=== PATIENT | female | born 1955 | race African-American/Black ===

== ENCOUNTER 2019-04-14 22:20 | Inpatient (IN) ==
[2019-04-14] MEDS ORDERED: FUROSEMIDE 40 MG/4 ML VIAL IV STA (22:32)
[2019-04-14] MEDS ORDERED: ONDANSETRON 4 MG/2 ML VIAL IV STA (22:32)
[2019-04-14] MEDS ORDERED: methylPREDNISolone SOD SUC 125 MG/2 ML VIAL IV STA (22:32)
[2019-04-14] MEDS ORDERED: AZITHROMYCIN INJ 500 MG in SODIUM CHLORIDE 0.9% 250 ML IV STA (22:38)
[2019-04-14] MEDS ORDERED: cefTRIAXone 1,000 MG in SODIUM CHLORIDE 0.9% 100 ML IV STA (22:38)
[2019-04-14 22:45] LABS: Basophils # 0.1 10*3/uL (0.0-0.2); Basophils % 0.5 % (0.0-0.8); Eosinophils # 0.3 10*3/uL (0.0-0.87); Eosinophils % 2.1 % (0.00-10.9); Hematocrit 49.3 VOL% (35.7-47.0); Hemoglobin 14.9 GM/DL (12.0-16.0); Immature Granulocytes % 0.2 %; Immature Granulocytes Absolute 0.03 #; Lymphocytes % 68.3 % (21.3-54.2); Mean Corpuscular HGB Conc 30.2 GM/DL (32-36); Mean Corpuscular Volume 97.4 FL (87-102); Mean Platelet Volume 11.6 FL (9.6-12.0); Neutrophils % 22.9 % (38.7-73.9); Platelet Count 281 T/CUMM (130-400); Red Blood Count 5.06 MC/CUMM (3.8-5.5); Red Cell Distribution Width 13.7 % (9.3-17.3); White Blood Count 14.6 T/CUMM (4-12)
[2019-04-14 22:56] LABS: INR 0.9; Partial Thromboplastin Time 25.2 SECS (20.8-36.0)
[2019-04-14] MEDS ORDERED: ALBUTEROL NEB SOLN 5 MG/ML 20 ML/BOTTLE RESP TX SCH (23:00)
[2019-04-14 23:05] LABS: Alanine Aminotransferase 33 U/L (13-56); Albumin 3.3 G/DL (3.4-5.0); Alkaline Phosphatase 105 U/L (45-117); Aspartate Amino Transferase 29 U/L (0-37); Bilirubin,Total < 0.39 MG/DL (0.2-1.0); Blood Urea Nitrogen 15 MG/DL (7-18); Calcium 9.8 MG/DL (8.5-10.1); Estimated Glom Filtration Rate 70 ML/MIN; Glucose 300 MG/DL (74-106); Osmolality,Calculated 299.7 MOS/KG (273-304); Total Protein 8.6 G/DL (6.4-8.3)
[2019-04-14] MEDS: NOREPINEPHRINE 8 MG in SODIUM CHLORIDE 0.9% 242 ML IV PRN (23:05)
[2019-04-14 23:14] LABS: Allen Test Positive; Pt O2 Delivery Device Ventilator
[2019-04-14 23:16] LABS: ABG HCO3 11.8 MMOL/L (20-26); ABG Oxygen Saturation 52.9 % (95-100); ABG PO2 41.4 MM HG (80-95); ABG TCO2 17.1 MMOL/L (23-27)
[2019-04-14 23:18] LABS: ABG PH 6.975 (7.35-7.45)
[2019-04-14] MEDS ORDERED: ACETAMINOPHEN 325 MG TABLET PO PRN (23:33)
[2019-04-14] MEDS ORDERED: ONDANSETRON 4 MG/2 ML VIAL IV PRN (23:33)
[2019-04-14 23:54] LABS: Allen Test Positive; Pt O2 Delivery Device Ventilator
[2019-04-14 23:55] LABS: ABG Base Excess -13.5 MMOL/L (-2.5-2.5); ABG HCO3 19.7 MMOL/L (20-26); ABG TCO2 22.3 MMOL/L (23-27)
[2019-04-14 23:56] LABS: ABG Oxygen Saturation 20.3 % (95-100)
[2019-04-15] LABS: ABG PH 6.989 (7.35-7.45)
[2019-04-15] MEDS ORDERED: ETOMIDATE 20 MG/10 ML VIAL IV ONE (00:20)
[2019-04-15] MEDS ORDERED: ATROPINE 1 MG/10 ML SYRINGE IV ONE ×2 (00:21→00:26)
[2019-04-15] MEDS ORDERED: SODIUM CHLORIDE 0.9% 1,000 ML IV STA ×3 (00:22→00:24)
[2019-04-15] MEDS ORDERED: ADENOSINE 6 MG/2 ML VIAL IV STA (00:24)
[2019-04-15] MEDS ORDERED: ADENOSINE 6 MG/2 ML VIAL IV ONE ×2 (00:24)
[2019-04-15] MEDS ORDERED: ROCURONIUM 100 MG/10 ML VIAL IV ONE (00:24)
[2019-04-15] MEDS ORDERED: METOPROLOL TARTRATE 5 MG/5 ML VIAL IV ONE (00:25)
[2019-04-15] MEDS ORDERED: SODIUM BICARBONATE 50 MEQ/50 ML VIAL IV STA ×2 (00:26→00:38)
[2019-04-15] MEDS ORDERED: SODIUM BICARBONATE 50 MEQ/50 ML VIAL IV ONE ×2 (00:26→00:38)
[2019-04-15] MEDS ORDERED: CALCIUM CHLORIDE 1,000 MG/10 ML SYRINGE IV ONE (00:40)
[2019-04-15] MEDS ORDERED: LIDOCAINE 1% 20 ML VIAL ONE (00:41)
[2019-04-15] MEDS ORDERED: HEPARIN/NACL 0.9% 2 UNITS/ML 1,000 ML IV ONE (00:41)
[2019-04-15 00:48] LABS: Atypical Lymphocytes Few; Band Neutrophils 1 % (0-10); Eosinophils 4 % (0-10); Lymphocytes 65 % (20-55); Platelet Estimate Normal; Reactive Lymphocytes Few; Segmented Neutrophils 21 % (50-85); Total Cells Counted 100
[2019-04-15] MEDS ORDERED: BIVALIRUDIN 250 MG VIAL IV ONE ×2 (01:02→01:58)
[2019-04-15] MEDS ORDERED: TIROFIBAN 5,000 MCG/100 ML PREMIX IV SCH (01:11)
[2019-04-15 01:18] LABS: ABG Base Excess -5.5 MMOL/L (-2.5-2.5); ABG HCO3 19.5 MMOL/L (20-26); ABG Oxygen Saturation 77.2 % (95-100); ABG PCO2 61.8 MM HG (35-48); ABG PO2 52.6 MM HG (80-95); ABG TCO2 22.1 MMOL/L (23-27)
[2019-04-15 01:20] LABS: ABG PH 7.193 (7.35-7.45)
[2019-04-15] MEDS ORDERED: TIROFIBAN 5,000 MCG/100 ML PREMIX IV ONE (01:34)
[2019-04-15] MEDS ORDERED: NITROPRUSSIDE 50 MG/2 ML VIAL ONE (01:49)
[2019-04-15] MEDS ORDERED: propofoL 200 MG/20 ML VIAL IV ONE (02:03)
[2019-04-15] MEDS ORDERED: HEPARIN/NACL 0.9% 2 UNITS/ML 500 ML IV ONE (02:10)
[2019-04-15] MEDS ORDERED: AMIODARONE INJ 450 MG in DEXTROSE 5% 241 ML IV SCH (03:00)
[2019-04-15] MEDS ORDERED: SODIUM CHLORIDE 0.9% 1,000 ML IV SCH (03:00)
[2019-04-15 03:02] LABS: ABG Base Excess -9.2 MMOL/L (-2.5-2.5); ABG HCO3 19.3 MMOL/L (20-26); ABG Oxygen Saturation 76.8 % (95-100); ABG PCO2 53.9 MM HG (35-48); ABG PO2 52.6 MM HG (80-95); ABG TCO2 20.9 MMOL/L (23-27)
[2019-04-15 03:04] LABS: ABG PH 7.171 (7.35-7.45)
[2019-04-15] MEDS: MEROPENEM 500 MG in SODIUM CHLORIDE 0.9% 100 ML IV SCH ×4 (04:18→23:41)
[2019-04-15 04:26] LABS: Basophils % 0.5 % (0.0-0.8); Eosinophils # 0.1 10*3/uL (0.0-0.87); Eosinophils % 0.7 % (0.00-10.9); Hematocrit 35.1 VOL% (35.7-47.0); Immature Granulocytes % 0.7 %; Immature Granulocytes Absolute 0.06 #; Lymphocytes # 1.7 10*3/uL (1.4-4.0); Lymphocytes % 20.5 % (21.3-54.2); Mean Corpuscular HGB Conc 31.3 GM/DL (32-36); Mean Corpuscular Volume 93.6 FL (87-102); Mean Platelet Volume 10.9 FL (9.6-12.0); Monocytes % 4.2 % (1.7-12.7); Neutrophils % 73.4 % (38.7-73.9); Red Blood Count 3.75 MC/CUMM (3.8-5.5); Red Cell Distribution Width 13.5 % (9.3-17.3); White Blood Count 8.1 T/CUMM (4-12)
[2019-04-15 04:29] LABS: Apearance,Urine CLEAR (Clear); Bilirubin,Urine Negative (Negative); Blood, Urine Large mg/dL (Negative); Glucose,Urine (UA) >=500 mg/dL (Negative); Ketones,Urine Negative (Negative); Nitrite,Urine Negative (Negative); Protein,Urine 100 MG/DL; RBC,Urine 173 /HPF (0-4); Squamous Epithelial Cell,Urine Occasional /HPF (0-10); Urine Color Yellow (Yellow); Urine Specific Gravity 1.031 (1.001-1.035); Urine Urobilinogen < 2.0 EU/DL (0.2-1.0); WBC,Urine 4 /HPF (0-6)
[2019-04-15 04:31] LABS: Platelet Count 178 T/CUMM (130-400)
[2019-04-15 04:41] LABS: Barbiturates Screen,Urine Negative (Negative); Benzodiazepines Screen,Urine Negative (Negative); Cannabinoid Screen,Urine Negative (Negative); Opiate Screen,Urine Negative (Negative); Phencyclidine Screen,Urine Negative (Negative)
[2019-04-15] MEDS ORDERED: MIDAZOLAM 2 MG/2 ML VIAL ONE (04:44)
[2019-04-15] MEDS ORDERED: MIDAZOLAM 2 MG/2 ML VIAL IV ONE (04:44)
[2019-04-15] MEDS: MIDAZOLAM 100 MG in SODIUM CHLORIDE 0.9% 80 ML IV PRN (04:49)
[2019-04-15 04:50] LABS: Bilirubin,Total 0.8 MG/DL (0.2-1.0); Calcium 7.6 MG/DL (8.5-10.1); Osmolality,Calculated 310.6 MOS/KG (273-304); Total Protein 5.3 G/DL (6.4-8.3)
[2019-04-15 05:09] LABS: CKMB % 9.3 %
[2019-04-15 05:12] LABS: Troponin I 33.3 NG/ML (0.00-0.045)
[2019-04-15] MEDS ORDERED: INSULIN REGULAR 100 UNIT/ML SUBCUT SCH (06:00)
[2019-04-15] MEDS ORDERED: FUROSEMIDE 40 MG/4 ML VIAL IV ONE (07:39)
[2019-04-15] MEDS ORDERED: FUROSEMIDE 20 MG/2 ML VIAL ONE (08:32)
[2019-04-15] MEDS: methylPREDNISolone SOD SUC 40 MG/1 ML VIAL IV SCH ×2 (08:46→15:11)
[2019-04-15] MEDS: NOREPINEPHRINE 8 MG in SODIUM CHLORIDE 0.9% 242 ML IV PRN (08:52)
[2019-04-15] MEDS: AZITHROMYCIN INJ 500 MG in SODIUM CHLORIDE 0.9% 250 ML IV SCH (08:53)
[2019-04-15] MEDS: PANTOPRAZOLE 40 MG VIAL IV SCH (08:55)
[2019-04-15] MEDS: TICAGRELOR 90 MG TABLET PO SCH ×2 (08:56→20:19)
[2019-04-15] MEDS: ASPIRIN EC 81 MG TABLET PO SCH (08:56)
[2019-04-15] MEDS: VANCOMYCIN INJ 1,250 MG in SODIUM CHLORIDE 0.9% 250 ML IV SCH (09:20)
[2019-04-15] MEDS: INSULIN GLARGINE 100 UNIT/ML SUBCUT SCH (09:22)
[2019-04-15] MEDS: SODIUM BICARB INJ 50 MEQ in SODIUM CHLORIDE 0.45% 1,000 ML IV SCH ×3 (09:24→22:19)
[2019-04-15] MEDS: INSULIN REGULAR 100 UNIT/ML SUBCUT SCH ×4 (09:25→20:19)
[2019-04-15] MEDS: AMIODARONE INJ 450 MG in DEXTROSE 5% 241 ML IV SCH (10:30)
[2019-04-15 11:25] LABS: CKMB % 9.7 %
[2019-04-15 19:17] LABS: Troponin I 92.5 NG/ML (0.00-0.045)
[2019-04-15] MEDS: ROSUVASTATIN 20 MG TABLET PO SCH (20:19)
[2019-04-16] MEDS: INSULIN REGULAR 100 UNIT/ML SUBCUT SCH ×7 (00:33→23:53)
[2019-04-16] MEDS: methylPREDNISolone SOD SUC 40 MG/1 ML VIAL IV SCH ×4 (00:33→23:53)
[2019-04-16] MEDS: AMIODARONE INJ 450 MG in DEXTROSE 5% 241 ML IV SCH ×2 (03:39→20:38)
[2019-04-16 04:33] LABS: Basophils % 0.1 % (0.0-0.8); Hematocrit 26.3 VOL% (35.7-47.0); Hemoglobin 8.7 GM/DL (12.0-16.0); Immature Granulocytes % 0.4 %; Immature Granulocytes Absolute 0.05 #; Lymphocytes # 1.5 10*3/uL (1.4-4.0); Lymphocytes % 12.8 % (21.3-54.2); Mean Corpuscular HGB Conc 33.1 GM/DL (32-36); Mean Corpuscular Volume 87.7 FL (87-102); Mean Platelet Volume 11.9 FL (9.6-12.0); Monocytes % 4.1 % (1.7-12.7); Neutrophils % 82.6 % (38.7-73.9); Platelet Count 165 T/CUMM (130-400); Red Cell Distribution Width 13.5 % (9.3-17.3); White Blood Count 11.3 T/CUMM (4-12)
[2019-04-16] MEDS: MEROPENEM 500 MG in SODIUM CHLORIDE 0.9% 100 ML IV SCH ×4 (04:39→21:01)
[2019-04-16 04:58] LABS: Calcium 7.6 MG/DL (8.5-10.1)
[2019-04-16 06:46] LABS: ABG Base Excess 5.6 MMOL/L (-2.5-2.5); ABG HCO3 29.5 MMOL/L (20-26); ABG Oxygen Saturation 99.5 % (95-100); ABG PCO2 30.2 MM HG (35-48); ABG PH 7.568 (7.35-7.45); ABG TCO2 25.1 MMOL/L (23-27)
[2019-04-16] MEDS ORDERED: FUROSEMIDE 40 MG/4 ML VIAL IV ONE (07:53)
[2019-04-16] MEDS: ASPIRIN EC 81 MG TABLET PO SCH (08:46)
[2019-04-16] MEDS: TICAGRELOR 90 MG TABLET PO SCH ×2 (08:46→21:00)
[2019-04-16] MEDS: INSULIN GLARGINE 100 UNIT/ML SUBCUT SCH (08:50)
[2019-04-16] MEDS: POTASSIUM CHLORIDE 20 MEQ/15 ML UDCUP PER TUBE SCH ×4 (08:50→21:00)
[2019-04-16] MEDS: VANCOMYCIN INJ 1,250 MG in SODIUM CHLORIDE 0.9% 250 ML IV SCH ×2 (08:51→22:09)
[2019-04-16] MEDS: AZITHROMYCIN INJ 500 MG in SODIUM CHLORIDE 0.9% 250 ML IV SCH (08:52)
[2019-04-16] MEDS: LACTATED RINGERS 1,000 ML IV SCH ×2 (08:54→20:05)
[2019-04-16] MEDS: PANTOPRAZOLE 40 MG VIAL IV SCH (08:59)
[2019-04-16] MEDS ORDERED: MAGNESIUM SULF RIDER 4 GM in PREMIX 1 EACH IV ONE (09:00)
[2019-04-16] MEDS: SODIUM BICARB INJ 50 MEQ in SODIUM CHLORIDE 0.45% 1,000 ML IV SCH (09:44)
[2019-04-16] MEDS: ROSUVASTATIN 20 MG TABLET PO SCH (21:00)
[2019-04-16] MEDS: MIDAZOLAM 100 MG in SODIUM CHLORIDE 0.9% 80 ML IV PRN (21:17)
[2019-04-17] MEDS: NOREPINEPHRINE 8 MG in SODIUM CHLORIDE 0.9% 242 ML IV PRN (01:50)
[2019-04-17] MEDS ORDERED: NOREPINEPHRINE 4 MG/4 ML VIAL IV ONE (01:56)
[2019-04-17] MEDS: MEROPENEM 500 MG in SODIUM CHLORIDE 0.9% 100 ML IV SCH ×2 (04:34→09:09)
[2019-04-17] MEDS: INSULIN REGULAR 100 UNIT/ML SUBCUT SCH ×5 (04:34→21:22)
[2019-04-17 04:42] LABS: ABG PCO2 74.1 MM HG (35-48)
[2019-04-17 04:53] LABS: ABG Base Excess 2.2 MMOL/L (-2.5-2.5); ABG HCO3 26.4 MMOL/L (20-26); ABG Oxygen Saturation 99.5 % (95-100); ABG PCO2 37.5 MM HG (35-48); ABG PH 7.452 (7.35-7.45)
[2019-04-17 05:07] LABS: Basophils % 0.1 % (0.0-0.8); Hematocrit 27.4 VOL% (35.7-47.0); Hemoglobin 8.7 GM/DL (12.0-16.0); Immature Granulocytes % 2.4 %; Immature Granulocytes Absolute 0.37 #; Lymphocytes # 1.6 10*3/uL (1.4-4.0); Lymphocytes % 10.2 % (21.3-54.2); Mean Corpuscular HGB Conc 31.8 GM/DL (32-36); Mean Corpuscular Volume 91.9 FL (87-102); Mean Platelet Volume 11.7 FL (9.6-12.0); Monocytes % 3.4 % (1.7-12.7); NRBC # 0.03 10*3/uL; Neutrophils % 83.9 % (38.7-73.9); Platelet Count 171 T/CUMM (130-400); Red Blood Count 2.98 MC/CUMM (3.8-5.5); Red Cell Distribution Width 14.2 % (9.3-17.3); White Blood Count 15.4 T/CUMM (4-12)
[2019-04-17 05:22] LABS: Calcium 8.2 MG/DL (8.5-10.1); Osmolality,Calculated 303.3 MOS/KG (273-304)
[2019-04-17 05:30] LABS: Band Neutrophils 2 % (0-10); Hypochromasia 1+; Lymphocytes 8 % (20-55); Platelet Estimate Adequate; Segmented Neutrophils 89 % (50-85); Total Cells Counted 100
[2019-04-17] MEDS: LACTATED RINGERS 1,000 ML IV SCH ×2 (06:27→16:19)
[2019-04-17] MEDS: INSULIN GLARGINE 100 UNIT/ML SUBCUT SCH (09:08)
[2019-04-17] MEDS: methylPREDNISolone SOD SUC 40 MG/1 ML VIAL IV SCH ×2 (09:10→16:19)
[2019-04-17] MEDS: TICAGRELOR 90 MG TABLET PO SCH ×2 (09:10→21:24)
[2019-04-17] MEDS: FUROSEMIDE 40 MG/4 ML VIAL IV SCH (09:10)
[2019-04-17] MEDS: ASPIRIN EC 81 MG TABLET PO SCH (09:10)
[2019-04-17] MEDS: PANTOPRAZOLE 40 MG VIAL IV SCH (09:11)
[2019-04-17] MEDS: VANCOMYCIN INJ 1,250 MG in SODIUM CHLORIDE 0.9% 250 ML IV SCH (09:12)
[2019-04-17] MEDS: AZITHROMYCIN INJ 500 MG in SODIUM CHLORIDE 0.9% 250 ML IV SCH (09:13)
[2019-04-17] MEDS: PIPERACILLIN/TAZOBACTAM 3,375 MG in SODIUM CHLORIDE 0.9% 100 ML IV SCH ×2 (11:38→18:21)
[2019-04-17] MEDS: AMIODARONE 200 MG TABLET PO SCH ×2 (11:41→21:24)
[2019-04-17] MEDS ORDERED: GLUCAGON 1 MG VIAL IM PRN ×2 (17:40→17:48)
[2019-04-17] MEDS ORDERED: DEXTROSE 50% 25 GM/50 ML VIAL IV PRN (17:40)
[2019-04-17] MEDS ORDERED: DEXTROSE 10% 250 ML BAG IV PRN (17:48)
[2019-04-17] MEDS: ROSUVASTATIN 20 MG TABLET PO SCH (21:23)
[2019-04-18] MEDS: INSULIN REGULAR 100 UNIT/ML SUBCUT SCH ×7 (00:27→23:50)
[2019-04-18] MEDS: methylPREDNISolone SOD SUC 40 MG/1 ML VIAL IV SCH ×4 (00:28→23:37)
[2019-04-18] MEDS: LACTATED RINGERS 1,000 ML IV SCH ×3 (01:44→23:31)
[2019-04-18] MEDS: PIPERACILLIN/TAZOBACTAM 3,375 MG in SODIUM CHLORIDE 0.9% 100 ML IV SCH ×3 (02:40→17:07)
[2019-04-18 05:09] LABS: ABG Base Excess 3.9 MMOL/L (-2.5-2.5); ABG HCO3 27.9 MMOL/L (20-26); ABG Oxygen Saturation 96.1 % (95-100); ABG PCO2 34.8 MM HG (35-48); ABG PH 7.499 (7.35-7.45); ABG PO2 77.6 MM HG (80-95); ABG TCO2 24.6 MMOL/L (23-27)
[2019-04-18 05:15] LABS: Basophils % 0.1 % (0.0-0.8); Hematocrit 25.9 VOL% (35.7-47.0); Hemoglobin 8.2 GM/DL (12.0-16.0); Immature Granulocytes % 1.6 %; Immature Granulocytes Absolute 0.22 #; Lymphocytes # 1.5 10*3/uL (1.4-4.0); Lymphocytes % 11.3 % (21.3-54.2); Mean Corpuscular HGB Conc 31.7 GM/DL (32-36); Mean Corpuscular Volume 91.5 FL (87-102); Monocytes % 3.2 % (1.7-12.7); NRBC # 0.42 10*3/uL; Neutrophils % 83.8 % (38.7-73.9); Platelet Count 177 T/CUMM (130-400); Red Blood Count 2.83 MC/CUMM (3.8-5.5); Red Cell Distribution Width 14.6 % (9.3-17.3); White Blood Count 13.5 T/CUMM (4-12)
[2019-04-18 05:32] LABS: Calcium 8.4 MG/DL (8.5-10.1); Osmolality,Calculated 299.6 MOS/KG (273-304)
[2019-04-18 05:38] LABS: Prealbumin 9.4 MG/DL (20-40)
[2019-04-18] MEDS: TICAGRELOR 90 MG TABLET PO SCH ×2 (09:23→21:02)
[2019-04-18] MEDS: ASPIRIN EC 81 MG TABLET PO SCH (09:23)
[2019-04-18] MEDS: AMIODARONE 200 MG TABLET PO SCH ×2 (09:23→21:02)
[2019-04-18] MEDS: FUROSEMIDE 40 MG/4 ML VIAL IV SCH (09:24)
[2019-04-18] MEDS: PANTOPRAZOLE 40 MG VIAL IV SCH (09:24)
[2019-04-18] MEDS: INSULIN GLARGINE 100 UNIT/ML SUBCUT SCH (09:26)
[2019-04-18] MEDS: MIDAZOLAM 100 MG in SODIUM CHLORIDE 0.9% 80 ML IV PRN (09:37)
[2019-04-18] MEDS ORDERED: METOPROLOL SUCCINATE XL 25 MG TABLET PO SCH (13:00)
[2019-04-18] MEDS: METOPROLOL TARTRATE 25 MG TABLET PO SCH ×2 (13:51→21:02)
[2019-04-18] MEDS: ROSUVASTATIN 20 MG TABLET PO SCH (21:02)
[2019-04-19] MEDS: PIPERACILLIN/TAZOBACTAM 3,375 MG in SODIUM CHLORIDE 0.9% 100 ML IV SCH ×3 (03:40→17:20)
[2019-04-19 04:14] LABS: ABG Base Excess 3.9 MMOL/L (-2.5-2.5); ABG HCO3 27.9 MMOL/L (20-26); ABG Oxygen Saturation 97.9 % (95-100); ABG PCO2 41.1 MM HG (35-48); ABG PH 7.446 (7.35-7.45); ABG PO2 98.7 MM HG (80-95); ABG TCO2 26.2 MMOL/L (23-27); Allen Test Positive; Pt O2 Delivery Device Ventilator
[2019-04-19] MEDS: INSULIN REGULAR 100 UNIT/ML SUBCUT SCH ×5 (04:47→20:37)
[2019-04-19 05:48] LABS: Basophils % 0.2 % (0.0-0.8); Hematocrit 24.8 VOL% (35.7-47.0); Immature Granulocytes % 0.9 %; Immature Granulocytes Absolute 0.13 #; Lymphocytes # 1.7 10*3/uL (1.4-4.0); Lymphocytes % 12.3 % (21.3-54.2); Mean Corpuscular HGB Conc 32.3 GM/DL (32-36); Mean Corpuscular Volume 92.5 FL (87-102); Mean Platelet Volume 11.5 FL (9.6-12.0); Monocytes % 4.9 % (1.7-12.7); NRBC # 0.72 10*3/uL; Neutrophils % 81.7 % (38.7-73.9); Platelet Count 185 T/CUMM (130-400); Red Blood Count 2.68 MC/CUMM (3.8-5.5); Red Cell Distribution Width 14.3 % (9.3-17.3); White Blood Count 13.8 T/CUMM (4-12)
[2019-04-19 06:01] LABS: Calcium 8.5 MG/DL (8.5-10.1); Osmolality,Calculated 297.1 MOS/KG (273-304)
[2019-04-19] MEDS: TICAGRELOR 90 MG TABLET PO SCH ×2 (08:10→20:47)
[2019-04-19] MEDS: ASPIRIN EC 81 MG TABLET PO SCH (08:10)
[2019-04-19] MEDS: FUROSEMIDE 40 MG/4 ML VIAL IV SCH ×2 (08:10→15:50)
[2019-04-19] MEDS: INSULIN GLARGINE 100 UNIT/ML SUBCUT SCH (08:10)
[2019-04-19] MEDS: METOPROLOL TARTRATE 25 MG TABLET PO SCH ×2 (08:10→20:47)
[2019-04-19] MEDS: methylPREDNISolone SOD SUC 40 MG/1 ML VIAL IV SCH ×2 (08:10→15:50)
[2019-04-19] MEDS: AMIODARONE 200 MG TABLET PO SCH ×2 (08:10→20:47)
[2019-04-19] MEDS: PANTOPRAZOLE 40 MG VIAL IV SCH (08:15)
[2019-04-19] MEDS ORDERED: MIDAZOLAM 100 MG in SODIUM CHLORIDE 0.9% 80 ML IV PRN (13:20)
[2019-04-19] MEDS: LOSARTAN 25 MG TABLET PO SCH (16:35)
[2019-04-19] MEDS ORDERED: MAGNESIUM HYDROXIDE SUSP 30 ML UDCUP PO PRN (17:18)
[2019-04-19] MEDS ORDERED: diphenhydrAMINE CAP 25 MG CAPSULE PO PRN (17:18)
[2019-04-19] MEDS: ROSUVASTATIN 20 MG TABLET PO SCH (20:47)
[2019-04-20] MEDS: INSULIN REGULAR 100 UNIT/ML SUBCUT SCH ×7 (00:34→23:31)
[2019-04-20] MEDS: methylPREDNISolone SOD SUC 40 MG/1 ML VIAL IV SCH ×3 (00:36→16:10)
[2019-04-20] MEDS: PIPERACILLIN/TAZOBACTAM 3,375 MG in SODIUM CHLORIDE 0.9% 100 ML IV SCH ×3 (02:02→17:30)
[2019-04-20 03:30] LABS: ABG Base Excess 6.8 MMOL/L (-2.5-2.5); ABG HCO3 30.6 MMOL/L (20-26); ABG Oxygen Saturation 97.5 % (95-100); ABG PCO2 39.9 MM HG (35-48); ABG PH 7.494 (7.35-7.45); ABG PO2 90.9 MM HG (80-95); ABG TCO2 28.3 MMOL/L (23-27); Allen Test Positive; Pt O2 Delivery Device Ventilator
[2019-04-20 05:20] LABS: Basophils % 0.1 % (0.0-0.8); Hematocrit 25.7 VOL% (35.7-47.0); Hemoglobin 8.4 GM/DL (12.0-16.0); Immature Granulocytes % 1.6 %; Immature Granulocytes Absolute 0.23 #; Lymphocytes # 1.3 10*3/uL (1.4-4.0); Lymphocytes % 9.1 % (21.3-54.2); Mean Corpuscular HGB Conc 32.7 GM/DL (32-36); Mean Corpuscular Volume 90.2 FL (87-102); Mean Platelet Volume 11.8 FL (9.6-12.0); Monocytes % 6.1 % (1.7-12.7); Neutrophils % 83.1 % (38.7-73.9); Platelet Count 203 T/CUMM (130-400); Red Blood Count 2.85 MC/CUMM (3.8-5.5); White Blood Count 14.4 T/CUMM (4-12)
[2019-04-20 05:42] LABS: Calcium 8.6 MG/DL (8.5-10.1); Osmolality,Calculated 301.6 MOS/KG (273-304)
[2019-04-20] MEDS: INSULIN GLARGINE 100 UNIT/ML SUBCUT SCH (08:40)
[2019-04-20] MEDS: FUROSEMIDE 40 MG/4 ML VIAL IV SCH ×2 (09:05→16:10)
[2019-04-20] MEDS: ASPIRIN CHEW 81 MG TABLET PO SCH (09:10)
[2019-04-20] MEDS: TICAGRELOR 90 MG TABLET PO SCH ×2 (09:10→20:21)
[2019-04-20] MEDS: LOSARTAN 25 MG TABLET PO SCH (09:10)
[2019-04-20] MEDS: AMIODARONE 200 MG TABLET PO SCH ×2 (09:10→20:21)
[2019-04-20] MEDS: METOPROLOL TARTRATE 25 MG TABLET PO SCH ×2 (09:10→20:21)
[2019-04-20] MEDS: PANTOPRAZOLE 40 MG VIAL IV SCH (09:10)
[2019-04-20] MEDS: MORPHINE 4 MG/1 ML VIAL IV PRN (10:50)
[2019-04-20] MEDS: MIDAZOLAM 100 MG in SODIUM CHLORIDE 0.9% 80 ML IV PRN (11:30)
[2019-04-20] MEDS: ROSUVASTATIN 20 MG TABLET PO SCH (20:21)
[2019-04-21] MEDS: methylPREDNISolone SOD SUC 40 MG/1 ML VIAL IV SCH ×3 (00:38→16:24)
[2019-04-21] MEDS: PIPERACILLIN/TAZOBACTAM 3,375 MG in SODIUM CHLORIDE 0.9% 100 ML IV SCH ×3 (02:43→18:07)
[2019-04-21 04:13] LABS: ABG Base Excess 8.8 MMOL/L (-2.5-2.5); ABG HCO3 32.6 MMOL/L (20-26); ABG Oxygen Saturation 97.4 % (95-100); ABG PCO2 40.2 MM HG (35-48); ABG PH 7.516 (7.35-7.45); ABG PO2 87.7 MM HG (80-95); ABG TCO2 29.9 MMOL/L (23-27); Allen Test Positive; Pt O2 Delivery Device Ventilator
[2019-04-21] MEDS: INSULIN REGULAR 100 UNIT/ML SUBCUT SCH ×5 (04:32→20:10)
[2019-04-21 05:21] LABS: Basophils % 0.1 % (0.0-0.8); Hematocrit 26.9 VOL% (35.7-47.0); Hemoglobin 8.5 GM/DL (12.0-16.0); Immature Granulocytes % 2.3 %; Immature Granulocytes Absolute 0.32 #; Lymphocytes # 1.5 10*3/uL (1.4-4.0); Lymphocytes % 10.8 % (21.3-54.2); Mean Corpuscular HGB Conc 31.6 GM/DL (32-36); Mean Corpuscular Volume 91.8 FL (87-102); Mean Platelet Volume 11.8 FL (9.6-12.0); Monocytes % 5.6 % (1.7-12.7); NRBC # 0.35 10*3/uL; Neutrophils % 81.2 % (38.7-73.9); Platelet Count 231 T/CUMM (130-400); Red Blood Count 2.93 MC/CUMM (3.8-5.5); Red Cell Distribution Width 13.9 % (9.3-17.3); White Blood Count 13.8 T/CUMM (4-12)
[2019-04-21 05:36] LABS: Calcium 8.4 MG/DL (8.5-10.1); Osmolality,Calculated 304.4 MOS/KG (273-304)
[2019-04-21 06:35] LABS: Hypochromasia 1+; Lymphocytes 10 % (20-55); Microcytosis 1+; Platelet Estimate Normal; Segmented Neutrophils 85 % (50-85); Total Cells Counted 100
[2019-04-21] MEDS: INSULIN GLARGINE 100 UNIT/ML SUBCUT SCH (08:18)
[2019-04-21] MEDS: FUROSEMIDE 40 MG/4 ML VIAL IV SCH ×2 (08:18→16:24)
[2019-04-21] MEDS: PANTOPRAZOLE 40 MG VIAL IV SCH (08:18)
[2019-04-21] MEDS: POTASSIUM CHLORIDE 20 MEQ/15 ML UDCUP PER TUBE PRN ×2 (08:19→10:42)
[2019-04-21] MEDS: ASPIRIN CHEW 81 MG TABLET PO SCH (08:20)
[2019-04-21] MEDS: AMIODARONE 200 MG TABLET PO SCH ×2 (08:20→20:10)
[2019-04-21] MEDS: LOSARTAN 25 MG TABLET PO SCH (08:21)
[2019-04-21] MEDS: METOPROLOL TARTRATE 25 MG TABLET PO SCH ×2 (08:21→20:10)
[2019-04-21] MEDS: TICAGRELOR 90 MG TABLET PO SCH ×2 (09:08→20:10)
[2019-04-21] MEDS: ROSUVASTATIN 20 MG TABLET PO SCH (20:10)
[2019-04-22] MEDS: INSULIN REGULAR 100 UNIT/ML SUBCUT SCH ×8 (00:54→23:06)
[2019-04-22] MEDS: methylPREDNISolone SOD SUC 40 MG/1 ML VIAL IV SCH ×4 (00:55→23:04)
[2019-04-22] MEDS: PIPERACILLIN/TAZOBACTAM 3,375 MG in SODIUM CHLORIDE 0.9% 100 ML IV SCH ×3 (02:15→18:27)
[2019-04-22 04:30] LABS: ABG Base Excess 8.2 MMOL/L (-2.5-2.5); ABG Oxygen Saturation 97.5 % (95-100); ABG PH 7.495 (7.35-7.45); ABG PO2 90.9 MM HG (80-95); Allen Test Positive; Pt O2 Delivery Device Ventilator
[2019-04-22 06:41] LABS: Basophils % 0.1 % (0.0-0.8); Hematocrit 27.3 VOL% (35.7-47.0); Hemoglobin 8.8 GM/DL (12.0-16.0); Immature Granulocytes % 4.4 %; Immature Granulocytes Absolute 0.61 #; Lymphocytes # 1.5 10*3/uL (1.4-4.0); Lymphocytes % 10.5 % (21.3-54.2); Mean Corpuscular HGB Conc 32.2 GM/DL (32-36); Mean Corpuscular Volume 90.7 FL (87-102); Mean Platelet Volume 11.8 FL (9.6-12.0); Monocytes % 5.4 % (1.7-12.7); NRBC # 0.13 10*3/uL; Neutrophils % 79.6 % (38.7-73.9); Platelet Count 262 T/CUMM (130-400); Red Blood Count 3.01 MC/CUMM (3.8-5.5)
[2019-04-22 06:56] LABS: Calcium 8.5 MG/DL (8.5-10.1); Osmolality,Calculated 307.4 MOS/KG (273-304)
[2019-04-22 07:03] LABS: Anisocytosis 2+; Band Neutrophils 9 % (0-10); Lymphocytes 13 % (20-55); Nucleated Red Blood Cells 2 (0-5); Platelet Estimate Normal; Polychromasia Slight; Segmented Neutrophils 74 % (50-85); Total Cells Counted 100
[2019-04-22 07:04] LABS: Smudge Cells Few
[2019-04-22 07:05] LABS: Basophilic Stippling Slight; Macrocytosis Slight
[2019-04-22] MEDS: DOCUSATE SODIUM 100 MG CAPSULE PO PRN (08:09)
[2019-04-22] MEDS: AMIODARONE 200 MG TABLET PO SCH ×2 (08:10→20:11)
[2019-04-22] MEDS: FUROSEMIDE 40 MG/4 ML VIAL IV SCH ×2 (08:10→15:44)
[2019-04-22] MEDS: POTASSIUM CHLORIDE 20 MEQ/15 ML UDCUP PER TUBE PRN (08:10)
[2019-04-22] MEDS: INSULIN GLARGINE 100 UNIT/ML SUBCUT SCH (08:10)
[2019-04-22] MEDS: TICAGRELOR 90 MG TABLET PO SCH ×2 (08:10→20:12)
[2019-04-22] MEDS: ASPIRIN CHEW 81 MG TABLET PO SCH (08:10)
[2019-04-22] MEDS: LOSARTAN 25 MG TABLET PO SCH (08:10)
[2019-04-22] MEDS: METOPROLOL TARTRATE 25 MG TABLET PO SCH (08:10)
[2019-04-22] MEDS: PANTOPRAZOLE 40 MG VIAL IV SCH (08:11)
[2019-04-22 10:59] LABS: ABG Base Excess 8.1 MMOL/L (-2.5-2.5); ABG Oxygen Saturation 94.4 % (95-100); ABG PCO2 41.7 MM HG (35-48); ABG PH 7.503 (7.35-7.45); ABG PO2 74.9 MM HG (80-95); ABG TCO2 33.3 MMOL/L (23-27); Allen Test Positive; Pt O2 Delivery Device Ventilator
[2019-04-22] MEDS ORDERED: hydroCHLOROthiazide 25 MG TABLET PO SCH (11:30)
[2019-04-22] MEDS ORDERED: PHENOL 1.4% THROAT SPRAY 177 ML BOTTLE PO PRN (12:14)
[2019-04-22] MEDS ORDERED: METOPROLOL TARTRATE 50 MG TABLET PO ONE (13:07)
[2019-04-22] MEDS ORDERED: FUROSEMIDE 40 MG/4 ML VIAL IV ONE ×2 (13:29→18:00)
[2019-04-22] MEDS ORDERED: ALBUTEROL/IPRATROPIUM 3 ML NEB RESP TX PRN (13:29)
[2019-04-22] MEDS: MORPHINE 4 MG/1 ML VIAL IV PRN ×2 (13:54→23:04)
[2019-04-22] MEDS: ALBUTEROL/IPRATROPIUM 3 ML NEB RESP TX SCH ×3 (14:35→23:53)
[2019-04-22] MEDS: LOSARTAN 50 MG TABLET PO SCH (20:11)
[2019-04-22] MEDS: METOPROLOL TARTRATE 50 MG TABLET PO SCH (20:11)
[2019-04-22] MEDS: ROSUVASTATIN 20 MG TABLET PO SCH (20:11)
[2019-04-22] MEDS ORDERED: amLODIPine 10 MG TABLET PO SCH (21:00)
[2019-04-23] MEDS: PIPERACILLIN/TAZOBACTAM 3,375 MG in SODIUM CHLORIDE 0.9% 100 ML IV SCH ×3 (02:50→18:16)
[2019-04-23] MEDS: INSULIN REGULAR 100 UNIT/ML SUBCUT SCH ×5 (03:51→20:36)
[2019-04-23] MEDS: ALBUTEROL/IPRATROPIUM 3 ML NEB RESP TX SCH ×6 (04:05→23:00)
[2019-04-23] MEDS: MORPHINE 4 MG/1 ML VIAL IV PRN (05:06)
[2019-04-23 05:58] LABS: Basophils % 0.2 % (0.0-0.8); Eosinophils % 0.1 % (0.00-10.9); Hematocrit 32.2 VOL% (35.7-47.0); Hemoglobin 10.1 GM/DL (12.0-16.0); Immature Granulocytes % 3.4 %; Immature Granulocytes Absolute 0.67 #; Lymphocytes # 3.2 10*3/uL (1.4-4.0); Lymphocytes % 16.4 % (21.3-54.2); Mean Corpuscular HGB Conc 31.4 GM/DL (32-36); Mean Corpuscular Volume 92.3 FL (87-102); Mean Platelet Volume 11.4 FL (9.6-12.0); Monocytes % 5.7 % (1.7-12.7); NRBC # 0.15 10*3/uL; Neutrophils % 74.2 % (38.7-73.9); Platelet Count 324 T/CUMM (130-400); Red Blood Count 3.49 MC/CUMM (3.8-5.5); Red Cell Distribution Width 13.9 % (9.3-17.3); White Blood Count 19.6 T/CUMM (4-12)
[2019-04-23 06:16] LABS: Osmolality,Calculated 295.1 MOS/KG (273-304)
[2019-04-23] MEDS: POTASSIUM CHLORIDE 20 MEQ/15 ML UDCUP PER TUBE PRN (06:55)
[2019-04-23 08:07] LABS: Band Neutrophils 5 % (0-10); Lymphocytes 20 % (20-55); Myelocytes 1 %; Segmented Neutrophils 69 % (50-85); Total Cells Counted 100
[2019-04-23 08:11] LABS: Platelet Estimate Normal
[2019-04-23] MEDS: FUROSEMIDE 40 MG/4 ML VIAL IV SCH ×2 (08:11→15:02)
[2019-04-23 08:12] LABS: Anisocytosis 2+; Polychromasia Slight
[2019-04-23 08:13] LABS: Atypical Lymphocytes Few
[2019-04-23] MEDS: METOPROLOL TARTRATE 50 MG TABLET PO SCH ×2 (08:14→20:36)
[2019-04-23] MEDS: AMIODARONE 200 MG TABLET PO SCH ×2 (08:14→20:36)
[2019-04-23] MEDS: LOSARTAN 50 MG TABLET PO SCH ×2 (08:14→20:36)
[2019-04-23] MEDS: TICAGRELOR 90 MG TABLET PO SCH ×2 (08:14→20:36)
[2019-04-23] MEDS: PANTOPRAZOLE 40 MG VIAL IV SCH (09:33)
[2019-04-23] MEDS: methylPREDNISolone SOD SUC 40 MG/1 ML VIAL IV SCH (09:37)
[2019-04-23] MEDS: ASPIRIN CHEW 81 MG TABLET PO SCH (09:41)
[2019-04-23] MEDS: INSULIN GLARGINE 100 UNIT/ML SUBCUT SCH (09:42)
[2019-04-23] MEDS ORDERED: FUROSEMIDE 40 MG/4 ML VIAL IV ONE ×3 (10:58→18:00)
[2019-04-23] MEDS ORDERED: cloNIDine 0.1 MG TABLET PO PRN (12:29)
[2019-04-23] MEDS: metOLazone 5 MG TABLET PO SCH (15:01)
[2019-04-23] MEDS: SPIRONOLACTONE 50 MG TABLET PO SCH (16:15)
[2019-04-23] MEDS: ENOXAPARIN 40 MG/0.4 ML SYRINGE SUBCUT SCH (20:35)
[2019-04-23] MEDS: ROSUVASTATIN 20 MG TABLET PO SCH (20:36)
[2019-04-24] MEDS: INSULIN REGULAR 100 UNIT/ML SUBCUT SCH ×6 (01:26→20:40)
[2019-04-24] MEDS: PIPERACILLIN/TAZOBACTAM 3,375 MG in SODIUM CHLORIDE 0.9% 100 ML IV SCH ×2 (02:04→09:56)
[2019-04-24] MEDS: ALBUTEROL/IPRATROPIUM 3 ML NEB RESP TX SCH ×6 (03:11→23:00)
[2019-04-24 05:31] LABS: Basophils % 0.2 % (0.0-0.8); Eosinophils % 0.1 % (0.00-10.9); Hematocrit 33.4 VOL% (35.7-47.0); Hemoglobin 10.9 GM/DL (12.0-16.0); Immature Granulocytes % 1.7 %; Lymphocytes # 4.5 10*3/uL (1.4-4.0); Lymphocytes % 25.6 % (21.3-54.2); Mean Corpuscular HGB Conc 32.6 GM/DL (32-36); Mean Corpuscular Volume 88.1 FL (87-102); Monocytes % 5.7 % (1.7-12.7); NRBC # 0.12 10*3/uL; Neutrophils % 66.7 % (38.7-73.9); Platelet Count 361 T/CUMM (130-400); Red Blood Count 3.79 MC/CUMM (3.8-5.5); Red Cell Distribution Width 13.4 % (9.3-17.3); White Blood Count 17.6 T/CUMM (4-12)
[2019-04-24 06:03] LABS: Calcium 9.9 MG/DL (8.5-10.1); Osmolality,Calculated 277.1 MOS/KG (273-304)
[2019-04-24] MEDS: FUROSEMIDE 40 MG/4 ML VIAL IV SCH ×2 (07:45→16:33)
[2019-04-24] MEDS: INSULIN GLARGINE 100 UNIT/ML SUBCUT SCH (07:45)
[2019-04-24] MEDS: PANTOPRAZOLE 40 MG VIAL IV SCH (07:45)
[2019-04-24] MEDS: METOPROLOL TARTRATE 50 MG TABLET PO SCH ×2 (08:46→20:40)
[2019-04-24] MEDS: ASPIRIN CHEW 81 MG TABLET PO SCH (08:46)
[2019-04-24] MEDS: LOSARTAN 50 MG TABLET PO SCH ×2 (08:46→20:40)
[2019-04-24] MEDS: TICAGRELOR 90 MG TABLET PO SCH ×2 (08:47→20:40)
[2019-04-24] MEDS: SPIRONOLACTONE 50 MG TABLET PO SCH (08:47)
[2019-04-24] MEDS: metOLazone 5 MG TABLET PO SCH (08:47)
[2019-04-24] MEDS: AMIODARONE 200 MG TABLET PO SCH ×2 (08:47→20:40)
[2019-04-24] MEDS: PANTOPRAZOLE 40 MG TABLET PO SCH (08:50)
[2019-04-24] MEDS: POTASSIUM CHLORIDE 20 MEQ TABLET PO SCH ×3 (12:05→20:39)
[2019-04-24] MEDS: ROSUVASTATIN 20 MG TABLET PO SCH (20:39)
[2019-04-24] MEDS: ENOXAPARIN 40 MG/0.4 ML SYRINGE SUBCUT SCH (20:40)
[2019-04-25] MEDS: INSULIN REGULAR 100 UNIT/ML SUBCUT SCH ×6 (01:33→21:58)
[2019-04-25] MEDS: ALBUTEROL/IPRATROPIUM 3 ML NEB RESP TX SCH ×6 (03:00→19:43)
[2019-04-25] MEDS: LORazepam 2 MG/1 ML VIAL IV PRN ×2 (04:20→14:02)
[2019-04-25 05:27] LABS: Osmolality,Calculated 281.8 MOS/KG (273-304)
[2019-04-25 06:43] LABS: Basophils % 0.1 % (0.0-0.8); Eosinophils # 0.1 10*3/uL (0.0-0.87); Eosinophils % 0.7 % (0.00-10.9); Hematocrit 36.8 VOL% (35.7-47.0); Hemoglobin 12.2 GM/DL (12.0-16.0); Immature Granulocytes Absolute 0.15 #; Lymphocytes # 4.2 10*3/uL (1.4-4.0); Lymphocytes % 29.2 % (21.3-54.2); Mean Corpuscular HGB Conc 33.2 GM/DL (32-36); Mean Corpuscular Volume 86.6 FL (87-102); Mean Platelet Volume 11.2 FL (9.6-12.0); NRBC # 0.07 10*3/uL; Platelet Count 379 T/CUMM (130-400); Red Blood Count 4.25 MC/CUMM (3.8-5.5); Red Cell Distribution Width 13.6 % (9.3-17.3); White Blood Count 14.5 T/CUMM (4-12)
[2019-04-25] MEDS: SPIRONOLACTONE 50 MG TABLET PO SCH (08:50)
[2019-04-25] MEDS: TICAGRELOR 90 MG TABLET PO SCH ×2 (08:50→21:59)
[2019-04-25] MEDS: ASPIRIN CHEW 81 MG TABLET PO SCH (08:50)
[2019-04-25] MEDS: AMIODARONE 200 MG TABLET PO SCH ×2 (08:50→21:59)
[2019-04-25] MEDS: metOLazone 5 MG TABLET PO SCH (08:50)
[2019-04-25] MEDS: PANTOPRAZOLE 40 MG TABLET PO SCH (08:50)
[2019-04-25] MEDS: METOPROLOL TARTRATE 50 MG TABLET PO SCH ×2 (08:51→21:59)
[2019-04-25] MEDS: FUROSEMIDE 40 MG/4 ML VIAL IV SCH ×2 (08:51→15:43)
[2019-04-25] MEDS: INSULIN GLARGINE 100 UNIT/ML SUBCUT SCH (08:52)
[2019-04-25] MEDS: LOSARTAN 50 MG TABLET PO SCH ×2 (08:54→21:59)
[2019-04-25] MEDS: ROSUVASTATIN 20 MG TABLET PO SCH (21:58)
[2019-04-25] MEDS: NORTRIPTYLINE 25 MG CAPSULE PO SCH (21:58)
[2019-04-25] MEDS: ENOXAPARIN 40 MG/0.4 ML SYRINGE SUBCUT SCH (21:59)
[2019-04-26] MEDS: ALBUTEROL/IPRATROPIUM 3 ML NEB RESP TX SCH ×7 (00:49→23:03)
[2019-04-26] MEDS: INSULIN REGULAR 100 UNIT/ML SUBCUT SCH ×6 (01:57→22:48)
[2019-04-26 04:57] LABS: Basophils % 0.1 % (0.0-0.8); Eosinophils # 0.1 10*3/uL (0.0-0.87); Eosinophils % 0.8 % (0.00-10.9); Hematocrit 36.5 VOL% (35.7-47.0); Hemoglobin 12.2 GM/DL (12.0-16.0); Immature Granulocytes % 0.6 %; Immature Granulocytes Absolute 0.08 #; Lymphocytes # 3.4 10*3/uL (1.4-4.0); Lymphocytes % 25.3 % (21.3-54.2); Mean Corpuscular HGB Conc 33.4 GM/DL (32-36); Mean Corpuscular Volume 87.3 FL (87-102); Mean Platelet Volume 11.3 FL (9.6-12.0); Monocytes % 5.3 % (1.7-12.7); NRBC # 0.03 10*3/uL; Neutrophils % 67.9 % (38.7-73.9); Platelet Count 391 T/CUMM (130-400); Red Blood Count 4.18 MC/CUMM (3.8-5.5); Red Cell Distribution Width 13.8 % (9.3-17.3); White Blood Count 13.5 T/CUMM (4-12)
[2019-04-26] MEDS: FUROSEMIDE 40 MG/4 ML VIAL IV SCH ×2 (09:00→16:47)
[2019-04-26] MEDS: metOLazone 5 MG TABLET PO SCH (09:00)
[2019-04-26] MEDS: TICAGRELOR 90 MG TABLET PO SCH ×2 (09:01→22:42)
[2019-04-26] MEDS: LOSARTAN 50 MG TABLET PO SCH ×2 (09:01→22:39)
[2019-04-26] MEDS: INSULIN GLARGINE 100 UNIT/ML SUBCUT SCH (09:02)
[2019-04-26] MEDS: PANTOPRAZOLE 40 MG TABLET PO SCH (09:02)
[2019-04-26] MEDS: ASPIRIN CHEW 81 MG TABLET PO SCH (09:02)
[2019-04-26] MEDS: METOPROLOL TARTRATE 50 MG TABLET PO SCH (09:02)
[2019-04-26] MEDS: AMIODARONE 200 MG TABLET PO SCH (09:02)
[2019-04-26] MEDS: SPIRONOLACTONE 50 MG TABLET PO SCH (09:02)
[2019-04-26] MEDS: ROSUVASTATIN 20 MG TABLET PO SCH (22:39)
[2019-04-26] MEDS: NORTRIPTYLINE 25 MG CAPSULE PO SCH (22:40)
[2019-04-26] MEDS: ENOXAPARIN 40 MG/0.4 ML SYRINGE SUBCUT SCH (22:42)
[2019-04-27] MEDS: METOPROLOL TARTRATE 50 MG TABLET PO SCH ×2 (00:17→09:04)
[2019-04-27] MEDS: AMIODARONE 200 MG TABLET PO SCH ×3 (00:17→21:52)
[2019-04-27] MEDS: ALBUTEROL/IPRATROPIUM 3 ML NEB RESP TX SCH ×5 (03:14→20:51)
[2019-04-27 04:56] LABS: Basophils % 0.1 % (0.0-0.8); Eosinophils # 0.1 10*3/uL (0.0-0.87); Eosinophils % 0.7 % (0.00-10.9); Hematocrit 33.6 VOL% (35.7-47.0); Immature Granulocytes % 0.6 %; Immature Granulocytes Absolute 0.07 #; Lymphocytes # 2.4 10*3/uL (1.4-4.0); Lymphocytes % 19.6 % (21.3-54.2); Mean Corpuscular HGB Conc 32.7 GM/DL (32-36); Mean Corpuscular Volume 89.1 FL (87-102); Mean Platelet Volume 11.2 FL (9.6-12.0); Monocytes % 6.1 % (1.7-12.7); Neutrophils % 72.9 % (38.7-73.9); Platelet Count 372 T/CUMM (130-400); Red Blood Count 3.77 MC/CUMM (3.8-5.5); Red Cell Distribution Width 13.9 % (9.3-17.3); White Blood Count 12.3 T/CUMM (4-12)
[2019-04-27] MEDS: INSULIN REGULAR 100 UNIT/ML SUBCUT SCH ×5 (05:02→21:52)
[2019-04-27 05:20] LABS: Calcium 9.7 MG/DL (8.5-10.1); Osmolality,Calculated 290.8 MOS/KG (273-304)
[2019-04-27] MEDS: FUROSEMIDE 40 MG TABLET PO SCH (09:04)
[2019-04-27] MEDS: metOLazone 5 MG TABLET PO SCH (09:04)
[2019-04-27] MEDS: PANTOPRAZOLE 40 MG TABLET PO SCH (09:04)
[2019-04-27] MEDS: TICAGRELOR 90 MG TABLET PO SCH ×2 (09:04→21:48)
[2019-04-27] MEDS: ASPIRIN CHEW 81 MG TABLET PO SCH (09:04)
[2019-04-27] MEDS: SPIRONOLACTONE 50 MG TABLET PO SCH (09:04)
[2019-04-27] MEDS: LOSARTAN 50 MG TABLET PO SCH (09:05)
[2019-04-27] MEDS: INSULIN GLARGINE 100 UNIT/ML SUBCUT SCH (09:06)
[2019-04-27] MEDS: FUROSEMIDE 40 MG/4 ML VIAL IV SCH (11:24)
[2019-04-27] MEDS ORDERED: SODIUM CHLORIDE 0.9% 500 ML IV ONE (15:02)
[2019-04-27] MEDS: NORTRIPTYLINE 25 MG CAPSULE PO SCH (21:47)
[2019-04-27] MEDS: ROSUVASTATIN 20 MG TABLET PO SCH (21:47)
[2019-04-27] MEDS: ENOXAPARIN 40 MG/0.4 ML SYRINGE SUBCUT SCH (21:50)
[2019-04-27] MEDS: METOPROLOL TARTRATE 25 MG TABLET PO SCH (21:53)
[2019-04-28] MEDS: ALBUTEROL/IPRATROPIUM 3 ML NEB RESP TX SCH ×7 (00:40→22:39)
[2019-04-28 06:35] LABS: Basophils % 0.1 % (0.0-0.8); Eosinophils # 0.2 10*3/uL (0.0-0.87); Eosinophils % 1.4 % (0.00-10.9); Hematocrit 33.9 VOL% (35.7-47.0); Hemoglobin 10.9 GM/DL (12.0-16.0); Immature Granulocytes % 0.5 %; Immature Granulocytes Absolute 0.05 #; Lymphocytes # 2.2 10*3/uL (1.4-4.0); Lymphocytes % 20.2 % (21.3-54.2); Mean Corpuscular HGB Conc 32.2 GM/DL (32-36); Mean Platelet Volume 10.7 FL (9.6-12.0); Neutrophils % 69.8 % (38.7-73.9); Platelet Count 358 T/CUMM (130-400); Red Blood Count 3.81 MC/CUMM (3.8-5.5); Red Cell Distribution Width 14.3 % (9.3-17.3); White Blood Count 11.1 T/CUMM (4-12)
[2019-04-28 07:13] LABS: Calcium 9.4 MG/DL (8.5-10.1); Osmolality,Calculated 284.1 MOS/KG (273-304)
[2019-04-28] MEDS: INSULIN REGULAR 100 UNIT/ML SUBCUT SCH ×4 (07:30→22:47)
[2019-04-28] MEDS ORDERED: POTASSIUM CHLORIDE 20 MEQ TABLET PO ONE (07:57)
[2019-04-28] MEDS: POTASSIUM CHLORIDE 20 MEQ/15 ML UDCUP PER TUBE PRN ×2 (09:09→11:17)
[2019-04-28] MEDS: TICAGRELOR 90 MG TABLET PO SCH ×2 (09:09→22:46)
[2019-04-28] MEDS: ASPIRIN CHEW 81 MG TABLET PO SCH (09:09)
[2019-04-28] MEDS: INSULIN GLARGINE 100 UNIT/ML SUBCUT SCH (09:10)
[2019-04-28] MEDS: FUROSEMIDE 40 MG TABLET PO SCH (09:10)
[2019-04-28] MEDS: SPIRONOLACTONE 50 MG TABLET PO SCH (09:10)
[2019-04-28] MEDS: PANTOPRAZOLE 40 MG TABLET PO SCH (09:10)
[2019-04-28] MEDS: AMIODARONE 200 MG TABLET PO SCH ×2 (09:10→22:46)
[2019-04-28] MEDS: METOPROLOL TARTRATE 25 MG TABLET PO SCH ×2 (09:11→22:46)
[2019-04-28] MEDS: NORTRIPTYLINE 25 MG CAPSULE PO SCH (22:46)
[2019-04-28] MEDS: ROSUVASTATIN 20 MG TABLET PO SCH (22:46)
[2019-04-28] MEDS: ENOXAPARIN 40 MG/0.4 ML SYRINGE SUBCUT SCH (22:51)
[2019-04-29] MEDS: ALBUTEROL/IPRATROPIUM 3 ML NEB RESP TX SCH ×5 (02:39→20:21)
[2019-04-29 05:02] LABS: Basophils % 0.1 % (0.0-0.8); Eosinophils # 0.1 10*3/uL (0.0-0.87); Eosinophils % 1.4 % (0.00-10.9); Hematocrit 30.7 VOL% (35.7-47.0); Immature Granulocytes % 0.3 %; Immature Granulocytes Absolute 0.03 #; Lymphocytes # 1.6 10*3/uL (1.4-4.0); Lymphocytes % 17.5 % (21.3-54.2); Mean Corpuscular HGB Conc 32.6 GM/DL (32-36); Mean Corpuscular Volume 88.7 FL (87-102); Mean Platelet Volume 10.8 FL (9.6-12.0); Monocytes % 9.8 % (1.7-12.7); Neutrophils % 70.9 % (38.7-73.9); Platelet Count 383 T/CUMM (130-400); Red Blood Count 3.46 MC/CUMM (3.8-5.5); Red Cell Distribution Width 14.1 % (9.3-17.3); White Blood Count 9.2 T/CUMM (4-12)
[2019-04-29 05:23] LABS: Calcium 9.5 MG/DL (8.5-10.1); Osmolality,Calculated 283.1 MOS/KG (273-304)
[2019-04-29] MEDS: INSULIN REGULAR 100 UNIT/ML SUBCUT SCH ×4 (08:03→22:27)
[2019-04-29] MEDS: INSULIN GLARGINE 100 UNIT/ML SUBCUT SCH (09:16)
[2019-04-29] MEDS: TICAGRELOR 90 MG TABLET PO SCH ×2 (09:16→22:18)
[2019-04-29] MEDS: ASPIRIN CHEW 81 MG TABLET PO SCH (09:16)
[2019-04-29] MEDS: AMIODARONE 200 MG TABLET PO SCH ×2 (09:16→22:18)
[2019-04-29] MEDS: PANTOPRAZOLE 40 MG TABLET PO SCH (09:16)
[2019-04-29] MEDS: FUROSEMIDE 40 MG TABLET PO SCH (09:18)
[2019-04-29] MEDS: SPIRONOLACTONE 50 MG TABLET PO SCH (09:18)
[2019-04-29] MEDS: METOPROLOL TARTRATE 25 MG TABLET PO SCH ×2 (09:19→22:27)
[2019-04-29] MEDS: NORTRIPTYLINE 25 MG CAPSULE PO SCH (22:18)
[2019-04-29] MEDS: DOCUSATE SODIUM 100 MG CAPSULE PO PRN (22:19)
[2019-04-29] MEDS: ROSUVASTATIN 20 MG TABLET PO SCH (22:19)
[2019-04-29] MEDS: ENOXAPARIN 40 MG/0.4 ML SYRINGE SUBCUT SCH (22:21)
[2019-04-30] MEDS: ALBUTEROL/IPRATROPIUM 3 ML NEB RESP TX SCH ×5 (05:10→19:15)
[2019-04-30] MEDS: INSULIN REGULAR 100 UNIT/ML SUBCUT SCH ×4 (07:53→21:20)
[2019-04-30] MEDS: ASPIRIN CHEW 81 MG TABLET PO SCH (08:57)
[2019-04-30] MEDS: AMIODARONE 200 MG TABLET PO SCH ×2 (08:57→21:17)
[2019-04-30] MEDS: TICAGRELOR 90 MG TABLET PO SCH ×2 (08:57→21:17)
[2019-04-30] MEDS: INSULIN GLARGINE 100 UNIT/ML SUBCUT SCH (08:57)
[2019-04-30] MEDS: METOPROLOL TARTRATE 25 MG TABLET PO SCH ×2 (08:59→21:17)
[2019-04-30] MEDS: FUROSEMIDE 40 MG TABLET PO SCH (08:59)
[2019-04-30] MEDS: PANTOPRAZOLE 40 MG TABLET PO SCH (08:59)
[2019-04-30] MEDS: SPIRONOLACTONE 50 MG TABLET PO SCH (08:59)
[2019-04-30] MEDS: ENOXAPARIN 40 MG/0.4 ML SYRINGE SUBCUT SCH (21:16)
[2019-04-30] MEDS: ROSUVASTATIN 20 MG TABLET PO SCH (21:17)
[2019-04-30] MEDS: NORTRIPTYLINE 25 MG CAPSULE PO SCH (21:17)
[2019-05-01] MEDS: ALBUTEROL/IPRATROPIUM 3 ML NEB RESP TX SCH ×5 (00:51→15:33)
[2019-05-01] MEDS: FUROSEMIDE 40 MG TABLET PO SCH (09:04)
[2019-05-01] MEDS: PANTOPRAZOLE 40 MG TABLET PO SCH (09:04)
[2019-05-01] MEDS: AMIODARONE 200 MG TABLET PO SCH (09:04)
[2019-05-01] MEDS: METOPROLOL TARTRATE 25 MG TABLET PO SCH (09:04)
[2019-05-01] MEDS: TICAGRELOR 90 MG TABLET PO SCH (09:04)
[2019-05-01] MEDS: SPIRONOLACTONE 50 MG TABLET PO SCH (09:04)
[2019-05-01] MEDS: INSULIN GLARGINE 100 UNIT/ML SUBCUT SCH (09:05)
[2019-05-01] MEDS: ASPIRIN CHEW 81 MG TABLET PO SCH (09:05)
[2019-05-01] MEDS: INSULIN REGULAR 100 UNIT/ML SUBCUT SCH ×3 (09:08→17:51)
[2019-05-01 12:53] LABS: Basophils % 0.3 % (0.0-0.8); Eosinophils # 0.2 10*3/uL (0.0-0.87); Eosinophils % 3.1 % (0.00-10.9); Hematocrit 31.4 VOL% (35.7-47.0); Hemoglobin 10.2 GM/DL (12.0-16.0); Immature Granulocytes % 0.3 %; Immature Granulocytes Absolute 0.02 #; Lymphocytes # 1.7 10*3/uL (1.4-4.0); Lymphocytes % 26.9 % (21.3-54.2); Mean Corpuscular HGB Conc 32.5 GM/DL (32-36); Mean Platelet Volume 10.9 FL (9.6-12.0); Monocytes % 9.3 % (1.7-12.7); Neutrophils % 60.1 % (38.7-73.9); Platelet Count 396 T/CUMM (130-400); Red Blood Count 3.49 MC/CUMM (3.8-5.5); Red Cell Distribution Width 14.3 % (9.3-17.3); White Blood Count 6.1 T/CUMM (4-12)
[2019-05-01 13:13] LABS: Calcium 9.6 MG/DL (8.5-10.1)
[2019-05-01 13:17] LABS: Anisocytosis 1+; Atypical Lymphocytes Few; Band Neutrophils 4 % (0-10); Eosinophils 3 % (0-10); Lymphocytes 25 % (20-55); Platelet Estimate Normal; Segmented Neutrophils 57 % (50-85); Total Cells Counted 100
[2019-05-01 13:18] LABS: Macrocytosis Slight
[2019-05-01 16:58] VITALS: BP 90/55
[2019-05-01] MEDS ORDERED: MAGNESIUM SULF RIDER 2 GM in PREMIX 1 EACH IV ONE (18:30)
[2019-05-01] MEDS ORDERED: POTASSIUM CHLORIDE 20 MEQ TABLET PO ONE (18:33)
== END 2019-05-01 19:22 | disposition home or self-care (01) | DRG 246 ==
LOC: EDUNIT# → EDBD → N.ED 22:20 → N.EDINP 23:33 → SUATTDRO 23:33 → N.ICU 04-15 → N.TELEN 04-24 10:03
PROVIDERS: ADMIT Internal Medicine; ATTEND Internal Medicine Cardiovascular Disease
PROC: CLCCHCL (ICD-10-PCS; 2019-04-15 01:15)

== ENCOUNTER 2019-05-18 06:14 | Inpatient (IN) ==
[2019-05-18] MEDS ORDERED: DILTIAZEM 50 MG/10 ML VIAL IV STA ×2 (06:24→07:15)
[2019-05-18] MEDS ORDERED: FUROSEMIDE 40 MG/4 ML VIAL IV STA (06:25)
[2019-05-18] MEDS ORDERED: DILTIAZEM 25 MG/5 ML VIAL IV ONE (06:27)
[2019-05-18] MEDS: dilTIAZem Drip 125 MG/125 ML PREMIX IV SCH (06:36)
[2019-05-18 06:45] LABS: Basophils # 0.1 10*3/uL (0.0-0.2); Basophils % 0.5 % (0.0-0.8); Eosinophils # 0.1 10*3/uL (0.0-0.87); Eosinophils % 0.7 % (0.00-10.9); Hematocrit 29.1 VOL% (35.7-47.0); Hemoglobin 8.9 GM/DL (12.0-16.0); Immature Granulocytes % 0.3 %; Immature Granulocytes Absolute 0.03 #; Lymphocytes # 5.7 10*3/uL (1.4-4.0); Lymphocytes % 51.8 % (21.3-54.2); Mean Corpuscular HGB Conc 30.6 GM/DL (32-36); Mean Corpuscular Volume 93.9 FL (87-102); Monocytes % 8.9 % (1.7-12.7); Neutrophils % 37.8 % (38.7-73.9); Platelet Count 375 T/CUMM (130-400); Red Cell Distribution Width 15.4 % (9.3-17.3); White Blood Count 10.9 T/CUMM (4-12)
[2019-05-18 06:53] LABS: PT Patient Result 11.3 SECS (9.6-12.2); Partial Thromboplastin Time 26.7 SECS (20.8-36.0)
[2019-05-18 07:10] LABS: Albumin 3.2 G/DL (3.4-5.0); Bilirubin,Total 0.4 MG/DL (0.2-1.0); Calcium 8.9 MG/DL (8.5-10.1); Osmolality,Calculated 281.7 MOS/KG (273-304); Thyroid Stimulating Hormone 3.42 uIU/ml (0.358-3.74); Total Protein 7.3 G/DL (6.4-8.3)
[2019-05-18 07:32] LABS: Atypical Lymphocytes Few; Band Neutrophils 2 % (0-10); Eosinophils 1 % (0-10); Lymphocytes 50 % (20-55); Platelet Estimate Normal; Segmented Neutrophils 41 % (50-85); Total Cells Counted 100
[2019-05-18 07:33] LABS: Anisocytosis 2+
[2019-05-18 07:38] LABS: Apearance,Urine CLEAR (Clear); Bilirubin,Urine Negative (Negative); Blood, Urine Small mg/dL (Negative); Glucose,Urine (UA) Negative (Negative); Hyaline Casts,Urine 3 /LPF (0-3); Ketones,Urine Negative (Negative); Mucus,Urine Occasional /LPF (Occasional); Nitrite,Urine Negative (Negative); Protein,Urine Negative; RBC,Urine 2 /HPF (0-4); Squamous Epithelial Cell,Urine Occasional /HPF (0-10); Urine Color Straw (Yellow); Urine Specific Gravity 1.005 (1.001-1.035); Urine Urobilinogen < 2.0 EU/DL (0.2-1.0); WBC,Urine 39 /HPF (0-6)
[2019-05-18 08:06] LABS: Barbiturates Screen,Urine Negative (Negative); Benzodiazepines Screen,Urine Negative (Negative); Cannabinoid Screen,Urine Negative (Negative); Opiate Screen,Urine Negative (Negative); Phencyclidine Screen,Urine Negative (Negative)
[2019-05-18] MEDS ORDERED: ONDANSETRON 4 MG/2 ML VIAL IV PRN (08:26)
[2019-05-18] MEDS ORDERED: MAGNESIUM SULF RIDER 2 GM in PREMIX 1 EACH IV PRN (08:26)
[2019-05-18] MEDS ORDERED: DOCUSATE SODIUM 100 MG CAPSULE PO PRN (08:26)
[2019-05-18] MEDS ORDERED: MAGNESIUM SULF RIDER 4 GM in PREMIX 1 EACH IV PRN (08:26)
[2019-05-18] MEDS ORDERED: ACETAMINOPHEN 325 MG TABLET PO PRN (08:26)
[2019-05-18] MEDS ORDERED: ENOXAPARIN 40 MG/0.4 ML SYRINGE SUBCUT SCH (09:00)
[2019-05-18 09:03] LABS: ABG Base Excess 3.4 MMOL/L (-2.5-2.5); ABG HCO3 27.5 MMOL/L (20-26); ABG PCO2 39.5 MM HG (35-48); ABG PO2 284.2 MM HG (80-95); ABG TCO2 28.7 MMOL/L (23-27); Allen Test Positive
[2019-05-18] MEDS ORDERED: BENZONATATE 100 MG CAPSULE PO PRN (10:05)
[2019-05-18] MEDS ORDERED: POTASSIUM CHLORIDE 20 MEQ TABLET PO ONE (10:12)
[2019-05-18] MEDS ORDERED: AMIODARONE 200 MG TABLET PO SCH (10:30)
[2019-05-18] MEDS ORDERED: POTASSIUM CHLORIDE 20 MEQ TABLET PO PRN (10:31)
[2019-05-18] MEDS: ROSUVASTATIN 20 MG TABLET PO SCH (11:00)
[2019-05-18] MEDS: METOPROLOL TARTRATE 25 MG TABLET PO SCH ×2 (11:01→22:02)
[2019-05-18] MEDS: TICAGRELOR 90 MG TABLET PO SCH ×2 (11:01→22:00)
[2019-05-18] MEDS: MAGNESIUM OXIDE 400 MG TABLET PO SCH (11:01)
[2019-05-18] MEDS: POTASSIUM CHLORIDE 20 MEQ TABLET PO SCH (11:01)
[2019-05-18] MEDS: SPIRONOLACTONE 50 MG TABLET PO SCH (11:02)
[2019-05-18] MEDS: ASPIRIN CHEW 81 MG TABLET PO SCH (11:02)
[2019-05-18] MEDS ORDERED: INSULIN GLARGINE 100 UNIT/ML SUBCUT ONE (12:57)
[2019-05-18] MEDS: APIXABAN 2.5 MG TABLET PO SCH ×2 (14:37→22:00)
[2019-05-18] MEDS: FUROSEMIDE 40 MG/4 ML VIAL IV SCH (15:31)
[2019-05-18] MEDS: NORTRIPTYLINE 25 MG CAPSULE PO SCH (22:00)
[2019-05-19] MEDS: dilTIAZem Drip 125 MG/125 ML PREMIX IV SCH (05:46)
[2019-05-19 05:52] LABS: Basophils # 0.1 10*3/uL (0.0-0.2); Basophils % 0.8 % (0.0-0.8); Eosinophils # 0.1 10*3/uL (0.0-0.87); Eosinophils % 0.6 % (0.00-10.9); Hematocrit 24.1 VOL% (35.7-47.0); Hemoglobin 7.8 GM/DL (12.0-16.0); Immature Granulocytes % 0.1 %; Immature Granulocytes Absolute 0.01 #; Lymphocytes # 4.2 10*3/uL (1.4-4.0); Lymphocytes % 53.5 % (21.3-54.2); Mean Corpuscular HGB Conc 32.4 GM/DL (32-36); Mean Corpuscular Volume 90.6 FL (87-102); Mean Platelet Volume 10.1 FL (9.6-12.0); Monocytes % 9.9 % (1.7-12.7); NRBC # 0.02 10*3/uL; Neutrophils % 35.1 % (38.7-73.9); Platelet Count 314 T/CUMM (130-400); Red Blood Count 2.66 MC/CUMM (3.8-5.5); Red Cell Distribution Width 15.3 % (9.3-17.3); White Blood Count 7.8 T/CUMM (4-12)
[2019-05-19 06:20] LABS: Calcium 9.1 MG/DL (8.5-10.1); Osmolality,Calculated 275.8 MOS/KG (273-304)
[2019-05-19 06:30] LABS: Eosinophils 2 % (0-10); Hypochromasia 1+; Lymphocytes 50 % (20-55); Segmented Neutrophils 36 % (50-85); Total Cells Counted 100
[2019-05-19 06:31] LABS: Atypical Lymphocytes Few; Macrocytosis Slight; Polychromasia Slight
[2019-05-19 06:32] LABS: Platelet Estimate Normal
[2019-05-19] MEDS: FUROSEMIDE 40 MG/4 ML VIAL IV SCH ×2 (09:18→15:56)
[2019-05-19] MEDS: INSULIN GLARGINE 100 UNIT/ML SUBCUT SCH (09:18)
[2019-05-19] MEDS: APIXABAN 2.5 MG TABLET PO SCH ×2 (09:19→20:19)
[2019-05-19] MEDS: SPIRONOLACTONE 50 MG TABLET PO SCH (09:19)
[2019-05-19] MEDS: ROSUVASTATIN 20 MG TABLET PO SCH (09:19)
[2019-05-19] MEDS: MAGNESIUM OXIDE 400 MG TABLET PO SCH (09:19)
[2019-05-19] MEDS: TICAGRELOR 90 MG TABLET PO SCH ×2 (09:20→20:18)
[2019-05-19] MEDS: METOPROLOL TARTRATE 25 MG TABLET PO SCH ×2 (09:20→20:19)
[2019-05-19] MEDS: ASPIRIN CHEW 81 MG TABLET PO SCH (09:20)
[2019-05-19] MEDS: POTASSIUM CHLORIDE 20 MEQ TABLET PO SCH (09:20)
[2019-05-19] MEDS: AMIODARONE 200 MG TABLET PO SCH ×2 (09:23→20:18)
[2019-05-19] MEDS: NORTRIPTYLINE 25 MG CAPSULE PO SCH (20:18)
[2019-05-20 04:49] LABS: Basophils # 0.1 10*3/uL (0.0-0.2); Basophils % 0.7 % (0.0-0.8); Eosinophils # 0.1 10*3/uL (0.0-0.87); Eosinophils % 1.2 % (0.00-10.9); Hematocrit 26.3 VOL% (35.7-47.0); Hemoglobin 8.1 GM/DL (12.0-16.0); Immature Granulocytes % 0.1 %; Immature Granulocytes Absolute 0.01 #; Lymphocytes # 3.5 10*3/uL (1.4-4.0); Lymphocytes % 51.1 % (21.3-54.2); Mean Corpuscular HGB Conc 30.8 GM/DL (32-36); Mean Corpuscular Volume 93.6 FL (87-102); Mean Platelet Volume 10.4 FL (9.6-12.0); Monocytes % 10.5 % (1.7-12.7); NRBC # 0.03 10*3/uL; Neutrophils % 36.4 % (38.7-73.9); Platelet Count 333 T/CUMM (130-400); Red Blood Count 2.81 MC/CUMM (3.8-5.5); Red Cell Distribution Width 15.4 % (9.3-17.3); White Blood Count 6.8 T/CUMM (4-12)
[2019-05-20 05:13] LABS: Calcium 9.8 MG/DL (8.5-10.1); Osmolality,Calculated 279.4 MOS/KG (273-304)
[2019-05-20 05:44] LABS: Anisocytosis 1+; Hypochromasia 1+; Lymphocytes 61 % (20-55); Macrocytosis 1+; Platelet Estimate Adequate; Polychromasia Slight; Segmented Neutrophils 36 % (50-85); Smudge Cells Few; Total Cells Counted 100
[2019-05-20] MEDS: METOPROLOL TARTRATE 25 MG TABLET PO SCH ×2 (09:23→21:09)
[2019-05-20] MEDS: INSULIN GLARGINE 100 UNIT/ML SUBCUT SCH (09:23)
[2019-05-20] MEDS: AMIODARONE 200 MG TABLET PO SCH ×2 (09:23→21:05)
[2019-05-20] MEDS: SPIRONOLACTONE 50 MG TABLET PO SCH (09:23)
[2019-05-20] MEDS: FUROSEMIDE 40 MG/4 ML VIAL IV SCH ×2 (09:23→16:54)
[2019-05-20] MEDS: ROSUVASTATIN 20 MG TABLET PO SCH (09:24)
[2019-05-20] MEDS: ASPIRIN CHEW 81 MG TABLET PO SCH (09:25)
[2019-05-20] MEDS: POTASSIUM CHLORIDE 20 MEQ TABLET PO SCH (09:25)
[2019-05-20] MEDS: MAGNESIUM OXIDE 400 MG TABLET PO SCH (09:25)
[2019-05-20] MEDS: TICAGRELOR 90 MG TABLET PO SCH ×2 (09:25→21:06)
[2019-05-20] MEDS: APIXABAN 2.5 MG TABLET PO SCH ×2 (09:25→21:05)
[2019-05-20] MEDS: dilTIAZem Drip 125 MG/125 ML PREMIX IV SCH (09:50)
[2019-05-20] MEDS: ASCORBIC ACID 500 MG TABLET PO SCH ×2 (11:26→21:05)
[2019-05-20] MEDS: NORTRIPTYLINE 25 MG CAPSULE PO SCH (21:03)
[2019-05-21 05:07] LABS: Basophils # 0.1 10*3/uL (0.0-0.2); Basophils % 0.9 % (0.0-0.8); Eosinophils # 0.1 10*3/uL (0.0-0.87); Eosinophils % 1.6 % (0.00-10.9); Hematocrit 25.9 VOL% (35.7-47.0); Immature Granulocytes % 0.2 %; Immature Granulocytes Absolute 0.01 #; Lymphocytes # 2.5 10*3/uL (1.4-4.0); Lymphocytes % 44.5 % (21.3-54.2); Mean Corpuscular HGB Conc 30.9 GM/DL (32-36); Mean Corpuscular Volume 93.2 FL (87-102); Mean Platelet Volume 10.1 FL (9.6-12.0); Monocytes % 9.5 % (1.7-12.7); NRBC # 0.03 10*3/uL; Neutrophils % 43.3 % (38.7-73.9); Platelet Count 307 T/CUMM (130-400); Red Blood Count 2.78 MC/CUMM (3.8-5.5); Red Cell Distribution Width 15.5 % (9.3-17.3); White Blood Count 5.6 T/CUMM (4-12)
[2019-05-21 05:37] LABS: Calcium 9.1 MG/DL (8.5-10.1); Osmolality,Calculated 279.4 MOS/KG (273-304)
[2019-05-21 06:11] LABS: Band Neutrophils 88 % (0-10); Lymphocytes 10 % (20-55); Nucleated Red Blood Cells 107 (0-5); Segmented Neutrophils 2 % (50-85); Total Cells Counted 100
[2019-05-21 06:12] LABS: Anisocytosis 1+; Ovalocytes Few; Platelet Estimate Normal
[2019-05-21] MEDS: INSULIN GLARGINE 100 UNIT/ML SUBCUT SCH (09:43)
[2019-05-21] MEDS: SPIRONOLACTONE 50 MG TABLET PO SCH (09:43)
[2019-05-21] MEDS: FUROSEMIDE 40 MG/4 ML VIAL IV SCH ×3 (09:43→23:04)
[2019-05-21] MEDS: METOPROLOL TARTRATE 25 MG TABLET PO SCH ×2 (09:44→20:09)
[2019-05-21] MEDS: ROSUVASTATIN 20 MG TABLET PO SCH (09:46)
[2019-05-21] MEDS: MAGNESIUM OXIDE 400 MG TABLET PO SCH (09:46)
[2019-05-21] MEDS: ASCORBIC ACID 500 MG TABLET PO SCH ×2 (09:46→20:09)
[2019-05-21] MEDS: POTASSIUM CHLORIDE 20 MEQ TABLET PO SCH (09:46)
[2019-05-21] MEDS: APIXABAN 2.5 MG TABLET PO SCH ×2 (09:47→20:08)
[2019-05-21] MEDS: ASPIRIN CHEW 81 MG TABLET PO SCH (09:47)
[2019-05-21] MEDS: AMIODARONE 200 MG TABLET PO SCH ×2 (09:47→20:07)
[2019-05-21] MEDS: TICAGRELOR 90 MG TABLET PO SCH ×2 (09:48→20:07)
[2019-05-21] MEDS: cefTRIAXone 1,000 MG in SYRINGE 1 EACH IV SCH (09:56)
[2019-05-21] MEDS: NORTRIPTYLINE 25 MG CAPSULE PO SCH (20:07)
[2019-05-22 05:07] LABS: Basophils % 0.4 % (0.0-0.8); Eosinophils % 0.1 % (0.00-10.9); Hematocrit 28.1 VOL% (35.7-47.0); Hemoglobin 8.7 GM/DL (12.0-16.0); Immature Granulocytes % 0.4 %; Immature Granulocytes Absolute 0.03 #; Lymphocytes # 1.7 10*3/uL (1.4-4.0); Lymphocytes % 22.7 % (21.3-54.2); Mean Corpuscular Volume 93.4 FL (87-102); Mean Platelet Volume 10.4 FL (9.6-12.0); Monocytes % 5.8 % (1.7-12.7); NRBC # 0.03 10*3/uL; Neutrophils % 70.6 % (38.7-73.9); Platelet Count 353 T/CUMM (130-400); Red Blood Count 3.01 MC/CUMM (3.8-5.5); Red Cell Distribution Width 15.8 % (9.3-17.3); White Blood Count 7.6 T/CUMM (4-12)
[2019-05-22 05:27] LABS: Calcium 9.8 MG/DL (8.5-10.1); Osmolality,Calculated 279.7 MOS/KG (273-304)
[2019-05-22] MEDS: ASCORBIC ACID 500 MG TABLET PO SCH ×2 (09:14→21:54)
[2019-05-22] MEDS: POTASSIUM CHLORIDE 20 MEQ TABLET PO SCH (09:14)
[2019-05-22] MEDS: AMIODARONE 200 MG TABLET PO SCH ×2 (09:14→21:54)
[2019-05-22] MEDS: APIXABAN 2.5 MG TABLET PO SCH ×2 (09:14→21:55)
[2019-05-22] MEDS: ROSUVASTATIN 20 MG TABLET PO SCH (09:14)
[2019-05-22] MEDS: TICAGRELOR 90 MG TABLET PO SCH ×2 (09:14→21:55)
[2019-05-22] MEDS: MAGNESIUM OXIDE 400 MG TABLET PO SCH (09:15)
[2019-05-22] MEDS: FUROSEMIDE 40 MG/4 ML VIAL IV SCH (09:15)
[2019-05-22] MEDS: ASPIRIN CHEW 81 MG TABLET PO SCH (09:15)
[2019-05-22] MEDS: INSULIN GLARGINE 100 UNIT/ML SUBCUT SCH (09:15)
[2019-05-22] MEDS: SPIRONOLACTONE 50 MG TABLET PO SCH (09:15)
[2019-05-22] MEDS: cefTRIAXone 1,000 MG in SYRINGE 1 EACH IV SCH (09:15)
[2019-05-22] MEDS: METOPROLOL TARTRATE 25 MG TABLET PO SCH ×2 (10:31→21:58)
[2019-05-22] MEDS: FUROSEMIDE 40 MG TABLET PO SCH (15:42)
[2019-05-22] MEDS: NORTRIPTYLINE 25 MG CAPSULE PO SCH (21:54)
[2019-05-23 05:06] LABS: Basophils # 0.1 10*3/uL (0.0-0.2); Basophils % 0.8 % (0.0-0.8); Eosinophils # 0.1 10*3/uL (0.0-0.87); Eosinophils % 0.9 % (0.00-10.9); Hematocrit 28.6 VOL% (35.7-47.0); Immature Granulocytes % 0.3 %; Immature Granulocytes Absolute 0.02 #; Lymphocytes # 3.5 10*3/uL (1.4-4.0); Lymphocytes % 53.2 % (21.3-54.2); Mean Corpuscular HGB Conc 31.5 GM/DL (32-36); Mean Corpuscular Volume 91.7 FL (87-102); Mean Platelet Volume 10.2 FL (9.6-12.0); Monocytes % 7.8 % (1.7-12.7); NRBC # 0.03 10*3/uL; Platelet Count 331 T/CUMM (130-400); Red Blood Count 3.12 MC/CUMM (3.8-5.5); White Blood Count 6.6 T/CUMM (4-12)
[2019-05-23 05:31] LABS: Atypical Lymphocytes Few; Eosinophils 1 % (0-10); Hypochromasia 1+; Lymphocytes 46 % (20-55); Segmented Neutrophils 43 % (50-85); Total Cells Counted 100
[2019-05-23 05:32] LABS: Macrocytosis 1+; Platelet Estimate Normal
[2019-05-23 05:47] LABS: Calcium 10.1 MG/DL (8.5-10.1); Osmolality,Calculated 268.2 MOS/KG (273-304)
[2019-05-23] MEDS ORDERED: SPIRONOLACTONE 50 MG TABLET PO SCH (09:16)
[2019-05-23] MEDS ORDERED: METOPROLOL TARTRATE 25 MG TABLET PO SCH (09:16)
[2019-05-23] MEDS: MAGNESIUM OXIDE 400 MG TABLET PO SCH (09:25)
[2019-05-23] MEDS: ROSUVASTATIN 20 MG TABLET PO SCH (09:25)
[2019-05-23] MEDS: APIXABAN 2.5 MG TABLET PO SCH (09:26)
[2019-05-23] MEDS: ASCORBIC ACID 500 MG TABLET PO SCH (09:26)
[2019-05-23] MEDS: ASPIRIN CHEW 81 MG TABLET PO SCH (09:27)
[2019-05-23] MEDS: POTASSIUM CHLORIDE 20 MEQ TABLET PO SCH (09:28)
[2019-05-23] MEDS: TICAGRELOR 90 MG TABLET PO SCH (09:29)
[2019-05-23] MEDS: AMIODARONE 200 MG TABLET PO SCH (09:29)
[2019-05-23] MEDS: FUROSEMIDE 40 MG TABLET PO SCH (09:29)
[2019-05-23] MEDS: SPIRONOLACTONE 50 MG TABLET PO SCH (10:03)
[2019-05-23] MEDS: INSULIN GLARGINE 100 UNIT/ML SUBCUT SCH (10:03)
[2019-05-23] MEDS: METOPROLOL TARTRATE 25 MG TABLET PO SCH (10:03)
[2019-05-23] MEDS: cefTRIAXone 1,000 MG in SYRINGE 1 EACH IV SCH ×2 (10:04→10:29)
[2019-05-23 12:30] VITALS: BP 99/60
== END 2019-05-23 13:33 | disposition home health service (06) | DRG 291 ==
LOC: EDBD → EDUNIT# → N.ED 06:14 → SUATTDRO 08:26 → N.EDINP 08:26 → N.TELEN 08:51
PROVIDERS: ADMIT Family Medicine; ATTEND Internal Medicine

== ENCOUNTER 2019-07-25 11:06 | Inpatient (IN) ==
[2019-07-25] MEDS ORDERED: SUCCINYLCHOLINE 200 MG/10 ML VIAL ONE (11:15)
[2019-07-25] MEDS ORDERED: ETOMIDATE 20 MG/10 ML VIAL IV ONE (11:16)
[2019-07-25] MEDS ORDERED: FUROSEMIDE 100 MG/10 ML VIAL IV STA (11:26)
[2019-07-25] MEDS ORDERED: MIDAZOLAM 2 MG/2 ML VIAL ONE (11:35)
[2019-07-25] MEDS ORDERED: MIDAZOLAM 2 MG/2 ML VIAL IV STA (11:37)
[2019-07-25] MEDS ORDERED: FUROSEMIDE 40 MG/4 ML VIAL IV STA (11:40)
[2019-07-25 11:51] LABS: Basophils # 0.1 10*3/uL (0.0-0.2); Basophils % 0.5 % (0.0-0.8); Eosinophils # 0.1 10*3/uL (0.0-0.87); Eosinophils % 0.5 % (0.00-10.9); Hematocrit 29.5 VOL% (35.7-47.0); Hemoglobin 8.7 GM/DL (12.0-16.0); Immature Granulocytes % 0.4 %; Immature Granulocytes Absolute 0.05 #; Lymphocytes # 6.1 10*3/uL (1.4-4.0); Lymphocytes % 52.3 % (21.3-54.2); Mean Corpuscular HGB Conc 29.5 GM/DL (32-36); Monocytes % 5.6 % (1.7-12.7); NRBC # 0.04 10*3/uL; Neutrophils % 40.7 % (38.7-73.9); Platelet Count 280 T/CUMM (130-400); Red Blood Count 3.01 MC/CUMM (3.8-5.5); White Blood Count 11.7 T/CUMM (4-12)
[2019-07-25 11:53] LABS: INR 1.1; PT Patient Result 11.3 SECS (9.8-11.9); Partial Thromboplastin Time 24.4 SECS (23.9-33.8)
[2019-07-25 11:54] LABS: ABG Base Excess -8.5 MMOL/L (-2.5-2.5); ABG HCO3 17.5 MMOL/L (20-26); ABG Oxygen Saturation 99.7 % (95-100); ABG PCO2 45.5 MM HG (35-48); ABG PH 7.225 (7.35-7.45); ABG TCO2 17.8 MMOL/L (23-27); Allen Test Positive; Pt O2 Delivery Device Ventilator
[2019-07-25] MEDS ORDERED: VECURONIUM 10 MG VIAL IV ONE (12:02)
[2019-07-25] MEDS ORDERED: VECURONIUM 10 MG VIAL IV STA (12:05)
[2019-07-25] MEDS: MIDAZOLAM 100 MG in SODIUM CHLORIDE 0.9% 80 ML IV SCH (12:14)
[2019-07-25] MEDS ORDERED: SODIUM CHLORIDE 0.9% 1,000 ML IV STA (12:15)
[2019-07-25 12:38] LABS: Albumin 3.2 G/DL (3.4-5.0); Bilirubin,Total 0.6 MG/DL (0.2-1.0); Osmolality,Calculated 294.4 MOS/KG (273-304); Total Protein 6.9 G/DL (6.4-8.3)
[2019-07-25] MEDS ORDERED: SODIUM CHLORIDE 0.9% 500 ML IV STA (12:39)
[2019-07-25] MEDS ORDERED: CEFEPIME 1,000 MG in SODIUM CHLORIDE 0.9% 100 ML IV STA (12:41)
[2019-07-25] MEDS ORDERED: AZITHROMYCIN INJ 500 MG in SODIUM CHLORIDE 0.9% 250 ML IV SCH (13:00)
[2019-07-25 13:04] LABS: Apearance,Urine CLEAR (Clear); Bacteria,Urine Occasional /HPF (Few); Bilirubin,Urine Negative (Negative); Blood, Urine Small mg/dL (Negative); Glucose,Urine (UA) >=500 mg/dL (Negative); Hyaline Casts,Urine 4 /LPF (0-3); Ketones,Urine Negative (Negative); Mucus,Urine Occasional /LPF (Occasional); Nitrite,Urine Negative (Negative); Protein,Urine 100 MG/DL; RBC,Urine 5 /HPF (0-4); Squamous Epithelial Cell,Urine Occasional /HPF (0-10); Transitional Epi Cells,Urine Occasional /HPF (<1); Urine Color Yellow (Yellow); Urine Specific Gravity 1.007 (1.001-1.035); Urine Urobilinogen < 2.0 EU/DL (0.2-1.0); WBC,Urine 2 /HPF (0-6)
[2019-07-25 13:19] LABS: Barbiturates Screen,Urine Negative (Negative); Benzodiazepines Screen,Urine Positive (Negative); Cannabinoid Screen,Urine Negative (Negative); Opiate Screen,Urine Negative (Negative); Phencyclidine Screen,Urine Negative (Negative)
[2019-07-25] MEDS ORDERED: DEXTROSE 10% 250 ML BAG IV PRN (13:24)
[2019-07-25] MEDS ORDERED: GLUCAGON 1 MG VIAL IM PRN (13:24)
[2019-07-25] MEDS: PANTOPRAZOLE 40 MG VIAL IV SCH (14:08)
[2019-07-25] MEDS ORDERED: FUROSEMIDE 40 MG/4 ML VIAL IV SCH (16:00)
[2019-07-25] MEDS: VANCOMYCIN INJ 1,750 MG in SODIUM CHLORIDE 0.9% 500 ML IV SCH (16:36)
[2019-07-25] MEDS: INSULIN REGULAR 100 UNIT/ML SUBCUT SCH ×2 (17:33→23:20)
[2019-07-25] MEDS: TICAGRELOR 90 MG TABLET PO SCH (20:55)
[2019-07-25] MEDS ORDERED: APIXABAN 2.5 MG TABLET PO SCH (21:00)
[2019-07-25] MEDS: CEFEPIME 1,000 MG in SODIUM CHLORIDE 0.9% 100 ML IV SCH (22:09)
[2019-07-26] MEDS: MIDAZOLAM 100 MG in SODIUM CHLORIDE 0.9% 80 ML IV SCH ×2 (04:46→16:53)
[2019-07-26 04:56] LABS: ABG Base Excess 1.5 MMOL/L (-2.5-2.5); ABG HCO3 25.8 MMOL/L (20-26); ABG PCO2 27.4 MM HG (35-48); ABG PH 7.543 (7.35-7.45); Allen Test Positive; Pt O2 Delivery Device Ventilator
[2019-07-26] MEDS: CEFEPIME 1,000 MG in SODIUM CHLORIDE 0.9% 100 ML IV SCH ×3 (05:29→20:47)
[2019-07-26 05:30] LABS: Basophils % 0.4 % (0.0-0.8); Eosinophils # 0.1 10*3/uL (0.0-0.87); Eosinophils % 0.9 % (0.00-10.9); Hematocrit 24.8 VOL% (35.7-47.0); Hemoglobin 7.7 GM/DL (12.0-16.0); Immature Granulocytes % 0.2 %; Immature Granulocytes Absolute 0.02 #; Lymphocytes # 3.3 10*3/uL (1.4-4.0); Lymphocytes % 41.2 % (21.3-54.2); Mean Corpuscular Volume 93.6 FL (87-102); Mean Platelet Volume 11.2 FL (9.6-12.0); Monocytes % 9.9 % (1.7-12.7); NRBC # 0.02 10*3/uL; Neutrophils % 47.4 % (38.7-73.9); Platelet Count 230 T/CUMM (130-400); Red Blood Count 2.65 MC/CUMM (3.8-5.5); Red Cell Distribution Width 16.1 % (9.3-17.3); White Blood Count 8.1 T/CUMM (4-12)
[2019-07-26 05:54] LABS: Calcium 9.5 MG/DL (8.5-10.1); Risk Ratio 2.71; VLDL CHOLESTEROL 37.6 MG/DL
[2019-07-26] MEDS: INSULIN REGULAR 100 UNIT/ML SUBCUT SCH ×3 (06:24→19:06)
[2019-07-26] MEDS ORDERED: FUROSEMIDE 40 MG/4 ML VIAL IV SCH (08:00)
[2019-07-26] MEDS ORDERED: SODIUM CHLORIDE 0.9% 1,000 ML IV PRN (08:01)
[2019-07-26] MEDS: TICAGRELOR 90 MG TABLET PO SCH ×2 (08:45→20:47)
[2019-07-26] MEDS: AMIODARONE 200 MG TABLET PO SCH (08:45)
[2019-07-26] MEDS: ROSUVASTATIN 20 MG TABLET PO SCH (08:45)
[2019-07-26] MEDS: ASPIRIN EC 81 MG TABLET PO SCH (08:45)
[2019-07-26] MEDS ORDERED: POTASSIUM CHLORIDE 20 MEQ/15 ML UDCUP PER TUBE SCH (09:00)
[2019-07-26] MEDS ORDERED: FUROSEMIDE 40 MG/4 ML VIAL IV ONE (12:37)
[2019-07-26] MEDS: PANTOPRAZOLE 40 MG VIAL IV SCH (14:49)
[2019-07-26] MEDS: VANCOMYCIN INJ 1,750 MG in SODIUM CHLORIDE 0.9% 500 ML IV SCH (16:56)
[2019-07-26] MEDS ORDERED: POTASSIUM CHLORIDE 20 MEQ/15 ML UDCUP PER TUBE ONE (21:00)
[2019-07-27] MEDS: INSULIN REGULAR 100 UNIT/ML SUBCUT SCH ×4 (03:02→20:12)
[2019-07-27 04:04] LABS: Basophils % 0.8 % (0.0-0.8); Eosinophils # 0.2 10*3/uL (0.0-0.87); Eosinophils % 3.5 % (0.00-10.9); Hematocrit 48.1 VOL% (35.7-47.0); Immature Granulocytes % 0.2 %; Immature Granulocytes Absolute 0.01 #; Lymphocytes # 1.5 10*3/uL (1.4-4.0); Lymphocytes % 30.9 % (21.3-54.2); Mean Corpuscular Volume 88.1 FL (87-102); Mean Platelet Volume 10.4 FL (9.6-12.0); Monocytes % 10.3 % (1.7-12.7); NRBC # 0.02 10*3/uL; Neutrophils % 54.3 % (38.7-73.9); Platelet Count 156 T/CUMM (130-400); Red Blood Count 5.46 MC/CUMM (3.8-5.5); Red Cell Distribution Width 20.1 % (9.3-17.3); White Blood Count 4.9 T/CUMM (4-12)
[2019-07-27 04:06] LABS: ABG Base Excess 0.5 MMOL/L (-2.5-2.5); ABG HCO3 23.4 MMOL/L (20-26); ABG PCO2 31.8 MM HG (35-48); ABG PH 7.485 (7.35-7.45); ABG PO2 121.1 MM HG (80-95); ABG TCO2 24.4 MMOL/L (23-27); Allen Test Positive; Pt O2 Delivery Device Ventilator
[2019-07-27 04:07] LABS: Hemoglobin 14.9 GM/DL (12.0-16.0)
[2019-07-27 04:22] LABS: Calcium 9.2 MG/DL (8.5-10.1); Osmolality,Calculated 289.8 MOS/KG (273-304)
[2019-07-27] MEDS: CEFEPIME 1,000 MG in SODIUM CHLORIDE 0.9% 100 ML IV SCH ×3 (05:25→20:54)
[2019-07-27] MEDS: POTASSIUM CHLORIDE RIDER 10 MEQ in PREMIX 1 EACH IV PRN ×3 (06:25→10:55)
[2019-07-27] MEDS: MIDAZOLAM 100 MG in SODIUM CHLORIDE 0.9% 80 ML IV SCH ×2 (08:01→12:11)
[2019-07-27] MEDS ORDERED: NOREPINEPHRINE 4 MG/4 ML VIAL IV ONE (08:08)
[2019-07-27] MEDS ORDERED: DOPamine 0 MG/0 ML PREMIX IV ONE (08:08)
[2019-07-27] MEDS: TICAGRELOR 90 MG TABLET PO SCH ×2 (09:05→22:28)
[2019-07-27] MEDS: ASPIRIN EC 81 MG TABLET PO SCH (09:06)
[2019-07-27] MEDS: AMIODARONE 200 MG TABLET PO SCH (09:06)
[2019-07-27] MEDS: ROSUVASTATIN 20 MG TABLET PO SCH (09:06)
[2019-07-27] MEDS ORDERED: FUROSEMIDE 40 MG/4 ML VIAL IV ONE (12:33)
[2019-07-27] MEDS: LORazepam 2 MG/1 ML VIAL IV PRN (16:21)
[2019-07-27] MEDS: PANTOPRAZOLE 40 MG VIAL IV SCH (16:25)
[2019-07-27] MEDS: VANCOMYCIN INJ 1,750 MG in SODIUM CHLORIDE 0.9% 500 ML IV SCH (16:28)
[2019-07-27] MEDS ORDERED: LORazepam 2 MG/1 ML VIAL IV PRN (20:15)
[2019-07-27] MEDS ORDERED: LORazepam 2 MG/1 ML VIAL IV ONE (21:07)
[2019-07-28] MEDS: INSULIN REGULAR 100 UNIT/ML SUBCUT SCH ×5 (00:15→22:25)
[2019-07-28] MEDS: LORazepam 2 MG/1 ML VIAL IV PRN (01:12)
[2019-07-28] MEDS ORDERED: diphenhydrAMINE 50 MG/1 ML VIAL IV PRN (02:07)
[2019-07-28 04:32] LABS: Basophils # 0.1 10*3/uL (0.0-0.2); Basophils % 0.6 % (0.0-0.8); Eosinophils # 0.2 10*3/uL (0.0-0.87); Eosinophils % 2.2 % (0.00-10.9); Hematocrit 35.9 VOL% (35.7-47.0); Immature Granulocytes % 0.4 %; Immature Granulocytes Absolute 0.03 #; Lymphocytes # 2.1 10*3/uL (1.4-4.0); Lymphocytes % 25.7 % (21.3-54.2); Mean Corpuscular HGB Conc 30.6 GM/DL (32-36); Mean Corpuscular Volume 88.4 FL (87-102); Mean Platelet Volume 10.3 FL (9.6-12.0); Monocytes % 11.8 % (1.7-12.7); Neutrophils % 59.3 % (38.7-73.9); Platelet Count 223 T/CUMM (130-400); Red Blood Count 4.06 MC/CUMM (3.8-5.5); Red Cell Distribution Width 18.4 % (9.3-17.3); White Blood Count 8.1 T/CUMM (4-12)
[2019-07-28 05:04] LABS: Calcium 9.8 MG/DL (8.5-10.1); Osmolality,Calculated 291.8 MOS/KG (273-304)
[2019-07-28] MEDS: CEFEPIME 1,000 MG in SODIUM CHLORIDE 0.9% 100 ML IV SCH (06:31)
[2019-07-28] MEDS: ASPIRIN EC 81 MG TABLET PO SCH (10:27)
[2019-07-28] MEDS: TICAGRELOR 90 MG TABLET PO SCH ×2 (10:27→20:28)
[2019-07-28] MEDS: AMIODARONE 200 MG TABLET PO SCH (10:28)
[2019-07-28] MEDS: FUROSEMIDE 40 MG/4 ML VIAL IV SCH (10:28)
[2019-07-28] MEDS: POTASSIUM CHLORIDE 20 MEQ TABLET PO SCH (10:28)
[2019-07-28] MEDS: ROSUVASTATIN 20 MG TABLET PO SCH (10:28)
[2019-07-28] MEDS: cefTRIAXone 2,000 MG in SYRINGE 1 EACH IV SCH (13:00)
[2019-07-28] MEDS: PANTOPRAZOLE 40 MG VIAL IV SCH (14:27)
[2019-07-29 05:40] LABS: Basophils # 0.1 10*3/uL (0.0-0.2); Basophils % 0.7 % (0.0-0.8); Eosinophils # 0.4 10*3/uL (0.0-0.87); Eosinophils % 5.4 % (0.00-10.9); Hematocrit 36.2 VOL% (35.7-47.0); Hemoglobin 11.3 GM/DL (12.0-16.0); Immature Granulocytes % 0.1 %; Immature Granulocytes Absolute 0.01 #; Lymphocytes # 2.7 10*3/uL (1.4-4.0); Lymphocytes % 35.9 % (21.3-54.2); Mean Corpuscular HGB Conc 31.2 GM/DL (32-36); Mean Corpuscular Volume 87.7 FL (87-102); Mean Platelet Volume 11.2 FL (9.6-12.0); Monocytes % 10.3 % (1.7-12.7); Neutrophils % 47.6 % (38.7-73.9); Platelet Count 240 T/CUMM (130-400); Red Blood Count 4.13 MC/CUMM (3.8-5.5); White Blood Count 7.5 T/CUMM (4-12)
[2019-07-29 06:05] LABS: Calcium 9.9 MG/DL (8.5-10.1); Osmolality,Calculated 287.3 MOS/KG (273-304)
[2019-07-29] MEDS: TICAGRELOR 90 MG TABLET PO SCH ×2 (08:47→20:28)
[2019-07-29] MEDS: ASPIRIN EC 81 MG TABLET PO SCH (08:47)
[2019-07-29] MEDS: AMIODARONE 200 MG TABLET PO SCH (08:47)
[2019-07-29] MEDS: POTASSIUM CHLORIDE 20 MEQ TABLET PO SCH (08:47)
[2019-07-29] MEDS: FUROSEMIDE 40 MG/4 ML VIAL IV SCH (08:47)
[2019-07-29] MEDS: ROSUVASTATIN 20 MG TABLET PO SCH (08:47)
[2019-07-29] MEDS: INSULIN REGULAR 100 UNIT/ML SUBCUT SCH ×4 (09:03→20:28)
[2019-07-29] MEDS: cefTRIAXone 2,000 MG in SYRINGE 1 EACH IV SCH (13:32)
[2019-07-30 05:56] LABS: Basophils % 0.5 % (0.0-0.8); Eosinophils # 0.3 10*3/uL (0.0-0.87); Eosinophils % 4.5 % (0.00-10.9); Hematocrit 37.1 VOL% (35.7-47.0); Hemoglobin 11.4 GM/DL (12.0-16.0); Immature Granulocytes % 0.3 %; Immature Granulocytes Absolute 0.02 #; Lymphocytes # 2.9 10*3/uL (1.4-4.0); Lymphocytes % 44.6 % (21.3-54.2); Mean Corpuscular HGB Conc 30.7 GM/DL (32-36); Neutrophils % 41.1 % (38.7-73.9); Platelet Count 242 T/CUMM (130-400); Red Blood Count 4.12 MC/CUMM (3.8-5.5); Red Cell Distribution Width 17.4 % (9.3-17.3); White Blood Count 6.4 T/CUMM (4-12)
[2019-07-30 06:04] LABS: Calcium 10.2 MG/DL (8.5-10.1); Osmolality,Calculated 282.7 MOS/KG (273-304)
[2019-07-30] MEDS: INSULIN REGULAR 100 UNIT/ML SUBCUT SCH ×4 (07:27→21:00)
[2019-07-30] MEDS: ROSUVASTATIN 20 MG TABLET PO SCH (09:59)
[2019-07-30] MEDS: AMIODARONE 200 MG TABLET PO SCH (10:00)
[2019-07-30] MEDS: ASPIRIN EC 81 MG TABLET PO SCH (10:00)
[2019-07-30] MEDS: POTASSIUM CHLORIDE 20 MEQ TABLET PO SCH (10:00)
[2019-07-30] MEDS: TICAGRELOR 90 MG TABLET PO SCH ×2 (10:00→21:03)
[2019-07-30] MEDS: FUROSEMIDE 40 MG/4 ML VIAL IV SCH (10:01)
[2019-07-30] MEDS: cefTRIAXone 2,000 MG in SYRINGE 1 EACH IV SCH (15:06)
[2019-07-31 04:57] VITALS: BP 122/64
[2019-07-31 07:41] LABS: Basophils # 0.1 10*3/uL (0.0-0.2); Basophils % 0.8 % (0.0-0.8); Eosinophils # 0.3 10*3/uL (0.0-0.87); Eosinophils % 4.4 % (0.00-10.9); Hematocrit 34.8 VOL% (35.7-47.0); Hemoglobin 10.9 GM/DL (12.0-16.0); Immature Granulocytes % 0.2 %; Immature Granulocytes Absolute 0.01 #; Lymphocytes # 3.1 10*3/uL (1.4-4.0); Lymphocytes % 48.4 % (21.3-54.2); Mean Corpuscular HGB Conc 31.3 GM/DL (32-36); Mean Corpuscular Volume 87.7 FL (87-102); Mean Platelet Volume 10.9 FL (9.6-12.0); Monocytes % 9.2 % (1.7-12.7); Platelet Count 259 T/CUMM (130-400); Red Blood Count 3.97 MC/CUMM (3.8-5.5); Red Cell Distribution Width 16.8 % (9.3-17.3); White Blood Count 6.4 T/CUMM (4-12)
[2019-07-31 07:53] LABS: Calcium 10.5 MG/DL (8.5-10.1); Osmolality,Calculated 279.7 MOS/KG (273-304)
[2019-07-31 08:04] LABS: Eosinophils 3 % (0-10); Hypochromasia 1+; Lymphocytes 49 % (20-55); Ovalocytes Slight; Platelet Estimate Adequate; Segmented Neutrophils 41 % (50-85); Total Cells Counted 100
[2019-07-31 08:05] LABS: Atypical Lymphocytes Few
[2019-07-31] MEDS ORDERED: FUROSEMIDE 40 MG TABLET PO SCH (09:00)
[2019-07-31] MEDS: INSULIN REGULAR 100 UNIT/ML SUBCUT SCH (09:23)
[2019-07-31] MEDS: AMIODARONE 200 MG TABLET PO SCH (10:01)
[2019-07-31] MEDS: ROSUVASTATIN 20 MG TABLET PO SCH (10:01)
[2019-07-31] MEDS: POTASSIUM CHLORIDE 20 MEQ TABLET PO SCH (10:01)
[2019-07-31] MEDS: TICAGRELOR 90 MG TABLET PO SCH (10:02)
[2019-07-31] MEDS: ASPIRIN EC 81 MG TABLET PO SCH (10:02)
== END 2019-07-31 13:26 | disposition home health service (06) | DRG 208 ==
LOC: EDBD → EDUNIT# → N.ED 11:06 → N.EDINP 12:28 → SUATTDRO 12:28 → N.ICU 13:08 → N.2E 07-28 17:07 → N.TELEN 07-30 13:07
PROVIDERS: ADMIT Internal Medicine; ATTEND Internal Medicine

== ENCOUNTER 2019-12-19 14:12 | Inpatient (IN) ==
[2019-12-19] MEDS ORDERED: FUROSEMIDE 40 MG/4 ML VIAL ONE (14:20)
[2019-12-19] MEDS ORDERED: ONDANSETRON 4 MG/2 ML VIAL ONE (14:20)
[2019-12-19] MEDS ORDERED: FUROSEMIDE 40 MG/4 ML VIAL IV STA (14:20)
[2019-12-19] MEDS ORDERED: ONDANSETRON 4 MG/2 ML VIAL IV STA (14:20)
[2019-12-19] MEDS ORDERED: MORPHINE 4 MG/1 ML VIAL ONE (14:20)
[2019-12-19] MEDS ORDERED: MORPHINE 4 MG/1 ML VIAL IV STA (14:21)
[2019-12-19] MEDS ORDERED: ETOMIDATE 20 MG/10 ML VIAL IV ONE (14:33)
[2019-12-19] MEDS ORDERED: ROCURONIUM 100 MG/10 ML VIAL IV STA (14:33)
[2019-12-19 14:39] LABS: Basophils # 0.1 10*3/uL (0.0-0.2); Basophils % 0.8 % (0.0-0.8); Eosinophils # 0.2 10*3/uL (0.0-0.87); Eosinophils % 1.8 % (0.00-10.9); Hematocrit 38.4 VOL% (35.7-47.0); Hemoglobin 11.6 GM/DL (12.0-16.0); Immature Granulocytes % 0.5 %; Immature Granulocytes Absolute 0.06 #; Lymphocytes # 8.3 10*3/uL (1.4-4.0); Lymphocytes % 63.8 % (21.3-54.2); Mean Corpuscular HGB Conc 30.2 GM/DL (32-36); Mean Corpuscular Volume 95.3 FL (87-102); Mean Platelet Volume 11.3 FL (9.6-12.0); Monocytes % 5.7 % (1.7-12.7); NRBC # 0.04 10*3/uL; Neutrophils % 27.4 % (38.7-73.9); Platelet Count 308 T/CUMM (130-400); Red Blood Count 4.03 MC/CUMM (3.8-5.5); Red Cell Distribution Width 15.9 % (9.3-17.3)
[2019-12-19 14:56] LABS: ABG Base Excess -5.1 MMOL/L (-2.5-2.5); ABG HCO3 20.2 MMOL/L (20-26); ABG Oxygen Saturation 92.1 % (95-100); ABG PH 7.301 (7.35-7.45); ABG PO2 72.6 MM HG (80-95); ABG TCO2 19.3 MMOL/L (23-27)
[2019-12-19 15:03] LABS: PT Patient Result 10.5 SECS (9.8-11.9); Partial Thromboplastin Time 23.4 SECS (23.9-33.8)
[2019-12-19 15:07] LABS: Albumin 3.5 G/DL (3.4-5.0); Bilirubin,Total 0.6 MG/DL (0.2-1.0); Calcium 9.2 MG/DL (8.5-10.1); Osmolality,Calculated 289.8 MOS/KG (273-304); Total Protein 8.2 G/DL (6.4-8.3)
[2019-12-19 15:11] LABS: Bacteria,Urine Many /HPF (Few); Bilirubin,Urine Negative (Negative); Blood, Urine Negative (Negative); Glucose,Urine (UA) 50 mg/dL (Negative); Ketones,Urine Negative (Negative); Mucus,Urine Occasional /LPF (Occasional); Nitrite,Urine Positive (Negative); Protein,Urine >=500 MG/DL; Urine Appearance CLOUDY (Clear); Urine Color Amber (Yellow); Urine Specific Gravity 1.018 (1.001-1.035); Urine Urobilinogen < 2.0 EU/DL (0.2-1.0); WBC,Urine 36 /HPF (0-6)
[2019-12-19] MEDS ORDERED: FUROSEMIDE 40 MG/4 ML VIAL IV ONE (15:14)
[2019-12-19] MEDS ORDERED: ALBUTEROL 2.5 MG/3 ML NEB RESP TX PRN (15:26)
[2019-12-19] MEDS ORDERED: ACETAMINOPHEN 325 MG TABLET PO PRN (15:26)
[2019-12-19] MEDS ORDERED: MAGNESIUM SULF RIDER 2 GM in PREMIX 1 EACH IV PRN (15:26)
[2019-12-19] MEDS ORDERED: hydrALAZINE 20 MG/1 ML VIAL IV PRN (15:26)
[2019-12-19] MEDS ORDERED: ONDANSETRON 4 MG/2 ML VIAL IV PRN (15:26)
[2019-12-19] MEDS ORDERED: MAGNESIUM SULF RIDER 4 GM in PREMIX 1 EACH IV PRN (15:26)
[2019-12-19] MEDS: PANTOPRAZOLE 40 MG VIAL IV SCH (15:57)
[2019-12-19 16:14] LABS: Lymphocytes 13 % (20-55); Segmented Neutrophils 80 % (50-85); Total Cells Counted 100
[2019-12-19 16:15] LABS: Platelet Estimate Normal
[2019-12-19] MEDS ORDERED: DEXTROSE 50% 25 GM/50 ML VIAL IV PRN (16:35)
[2019-12-19] MEDS ORDERED: GLUCAGON 1 MG VIAL IM PRN (16:35)
[2019-12-19] MEDS: cefTRIAXone 1,000 MG in SYRINGE 1 EACH IV SCH (16:47)
[2019-12-19] MEDS ORDERED: NOREPINEPHRINE 4 MG/4 ML VIAL IV ONE (17:10)
[2019-12-19] MEDS: NOREPINEPHRINE 8 MG in SODIUM CHLORIDE 0.9% 242 ML IV PRN (17:16)
[2019-12-19] MEDS ORDERED: ATROPINE 1 MG/10 ML SYRINGE ONE (17:47)
[2019-12-19] MEDS: AZITHROMYCIN INJ 500 MG in SODIUM CHLORIDE 0.9% 250 ML IV SCH (18:04)
[2019-12-19] MEDS: INSULIN REGULAR 100 UNIT/ML SUBCUT SCH ×2 (18:19→23:22)
[2019-12-19] MEDS: ALBUTEROL/IPRATROPIUM 3 ML NEB RESP TX SCH (19:52)
[2019-12-19] MEDS: APIXABAN 2.5 MG TABLET PO SCH (22:11)
[2019-12-19] MEDS: METOPROLOL TARTRATE 25 MG TABLET PO SCH (22:11)
[2019-12-19] MEDS: TICAGRELOR 90 MG TABLET PO SCH (22:11)
[2019-12-20] MEDS: ALBUTEROL/IPRATROPIUM 3 ML NEB RESP TX SCH ×4 (00:01→19:32)
[2019-12-20] MEDS: NOREPINEPHRINE 8 MG in SODIUM CHLORIDE 0.9% 242 ML IV PRN ×2 (00:20→21:31)
[2019-12-20 03:33] LABS: ABG HCO3 23.1 MMOL/L (20-26); ABG Oxygen Saturation 99.1 % (95-100); ABG PCO2 36.5 MM HG (35-48); ABG PO2 273.6 MM HG (80-95); ABG TCO2 24.3 MMOL/L (23-27)
[2019-12-20 05:42] LABS: Basophils # 0.1 10*3/uL (0.0-0.2); Basophils % 0.5 % (0.0-0.8); Eosinophils % 0.2 % (0.00-10.9); Hematocrit 32.3 VOL% (35.7-47.0); Immature Granulocytes % 0.4 %; Immature Granulocytes Absolute 0.05 #; Lymphocytes # 2.5 10*3/uL (1.4-4.0); Lymphocytes % 21.7 % (21.3-54.2); Mean Corpuscular Volume 92.8 FL (87-102); Mean Platelet Volume 11.2 FL (9.6-12.0); Monocytes % 7.5 % (1.7-12.7); NRBC # 0.02 10*3/uL; Neutrophils % 69.7 % (38.7-73.9); Platelet Count 239 T/CUMM (130-400); Red Blood Count 3.48 MC/CUMM (3.8-5.5); Red Cell Distribution Width 15.4 % (9.3-17.3); White Blood Count 11.5 T/CUMM (4-12)
[2019-12-20 05:59] LABS: Calcium 8.7 MG/DL (8.5-10.1); Osmolality,Calculated 289.1 MOS/KG (273-304)
[2019-12-20 06:07] LABS: Prealbumin 28.8 MG/DL (20-40)
[2019-12-20 06:48] LABS: Albumin 3.2 G/DL (3.4-5.0); Bilirubin,Total 0.6 MG/DL (0.2-1.0); Osmolality,Calculated 285.4 MOS/KG (273-304); Thyroid Stimulating Hormone 0.419 uIU/ml (0.358-3.74); Total Protein 7.1 G/DL (6.4-8.3)
[2019-12-20] MEDS: INSULIN REGULAR 100 UNIT/ML SUBCUT SCH ×3 (07:17→18:34)
[2019-12-20] MEDS: FUROSEMIDE 40 MG/4 ML VIAL IV SCH ×2 (08:50→16:22)
[2019-12-20] MEDS: AMIODARONE 200 MG TABLET PO SCH (08:51)
[2019-12-20] MEDS: METOPROLOL TARTRATE 25 MG TABLET PO SCH ×2 (08:51→21:16)
[2019-12-20] MEDS: TICAGRELOR 90 MG TABLET PO SCH ×2 (08:51→21:22)
[2019-12-20] MEDS: APIXABAN 2.5 MG TABLET PO SCH ×2 (08:51→21:22)
[2019-12-20] MEDS ORDERED: ASPIRIN EC 81 MG TABLET PO SCH (09:00)
[2019-12-20] MEDS ORDERED: ROSUVASTATIN 40 MG PO SCH (09:00)
[2019-12-20] MEDS: PANTOPRAZOLE 40 MG VIAL IV SCH (16:20)
[2019-12-20] MEDS: cefTRIAXone 1,000 MG in SYRINGE 1 EACH IV SCH (16:22)
[2019-12-20] MEDS: AZITHROMYCIN INJ 500 MG in SODIUM CHLORIDE 0.9% 250 ML IV SCH (16:30)
[2019-12-21] MEDS: ALBUTEROL/IPRATROPIUM 3 ML NEB RESP TX SCH ×4 (00:12→19:19)
[2019-12-21] MEDS: INSULIN REGULAR 100 UNIT/ML SUBCUT SCH ×4 (00:32→17:51)
[2019-12-21 04:22] LABS: Basophils % 0.3 % (0.0-0.8); Eosinophils % 0.1 % (0.00-10.9); Hematocrit 27.7 VOL% (35.7-47.0); Hemoglobin 8.7 GM/DL (12.0-16.0); Immature Granulocytes % 0.3 %; Immature Granulocytes Absolute 0.04 #; Lymphocytes # 1.9 10*3/uL (1.4-4.0); Lymphocytes % 16.1 % (21.3-54.2); Mean Corpuscular HGB Conc 31.4 GM/DL (32-36); Mean Corpuscular Volume 90.5 FL (87-102); Mean Platelet Volume 11.3 FL (9.6-12.0); Monocytes % 9.4 % (1.7-12.7); Neutrophils % 73.8 % (38.7-73.9); Platelet Count 210 T/CUMM (130-400); Red Blood Count 3.06 MC/CUMM (3.8-5.5); Red Cell Distribution Width 15.7 % (9.3-17.3); White Blood Count 11.6 T/CUMM (4-12)
[2019-12-21 04:23] LABS: Albumin 2.9 G/DL (3.4-5.0); Bilirubin,Total 0.7 MG/DL (0.2-1.0); Calcium 9.1 MG/DL (8.5-10.1); Osmolality,Calculated 294.7 MOS/KG (273-304); Total Protein 7.1 G/DL (6.4-8.3)
[2019-12-21 04:32] LABS: ABG Base Excess 2.5 MMOL/L (-2.5-2.5); ABG HCO3 26.7 MMOL/L (20-26); ABG Oxygen Saturation 99.9 % (95-100); ABG PCO2 30.9 MM HG (35-48); ABG PH 7.513 (7.35-7.45); ABG TCO2 21.8 MMOL/L (23-27); Allen Test Positive; Pt O2 Delivery Device Ventilator
[2019-12-21] MEDS ORDERED: POTASSIUM CHLORIDE RIDER 20 MEQ in PREMIX 1 EACH IV PRN (08:00)
[2019-12-21] MEDS ORDERED: POTASSIUM CHLORIDE RIDER 10 MEQ in PREMIX 1 EACH IV PRN (08:00)
[2019-12-21] MEDS ORDERED: ASPIRIN CHEW 81 MG TABLET PO SCH (09:00)
[2019-12-21] MEDS: FUROSEMIDE 40 MG/4 ML VIAL IV SCH ×2 (09:54→17:00)
[2019-12-21] MEDS: AMIODARONE 200 MG TABLET PO SCH (14:51)
[2019-12-21] MEDS: TICAGRELOR 90 MG TABLET PO SCH ×2 (14:51→21:35)
[2019-12-21] MEDS: AZITHROMYCIN 250 MG TABLET PO SCH (14:51)
[2019-12-21] MEDS: METOPROLOL TARTRATE 25 MG TABLET PO SCH ×2 (14:52→21:36)
[2019-12-21] MEDS: APIXABAN 2.5 MG TABLET PO SCH ×2 (14:52→21:36)
[2019-12-21] MEDS: PANTOPRAZOLE 40 MG VIAL IV SCH (14:55)
[2019-12-21] MEDS: cefTRIAXone 1,000 MG in SYRINGE 1 EACH IV SCH (17:00)
[2019-12-21] MEDS ORDERED: DEXTROSE 50% 25 GM/50 ML VIAL IV PRN (17:10)
[2019-12-22] MEDS: INSULIN REGULAR 100 UNIT/ML SUBCUT SCH ×4 (00:04→18:50)
[2019-12-22] MEDS: ALBUTEROL/IPRATROPIUM 3 ML NEB RESP TX SCH ×4 (00:46→19:52)
[2019-12-22 04:13] LABS: Basophils % 0.4 % (0.0-0.8); Eosinophils # 0.1 10*3/uL (0.0-0.87); Eosinophils % 1.1 % (0.00-10.9); Hematocrit 28.1 VOL% (35.7-47.0); Hemoglobin 8.7 GM/DL (12.0-16.0); Immature Granulocytes % 0.4 %; Immature Granulocytes Absolute 0.03 #; Lymphocytes # 2.1 10*3/uL (1.4-4.0); Lymphocytes % 25.3 % (21.3-54.2); Mean Corpuscular Volume 93.7 FL (87-102); Mean Platelet Volume 10.8 FL (9.6-12.0); Monocytes % 8.6 % (1.7-12.7); Neutrophils % 64.2 % (38.7-73.9); Platelet Count 197 T/CUMM (130-400); Red Cell Distribution Width 15.8 % (9.3-17.3); White Blood Count 8.4 T/CUMM (4-12)
[2019-12-22 04:29] LABS: Albumin 2.8 G/DL (3.4-5.0); Bilirubin,Total 1.3 MG/DL (0.2-1.0); Calcium 9.4 MG/DL (8.5-10.1); Total Protein 7.3 G/DL (6.4-8.3)
[2019-12-22 04:50] LABS: Allen Test Positive
[2019-12-22 05:03] LABS: ABG Base Excess 2.9 MMOL/L (-2.5-2.5); ABG Oxygen Saturation 97.4 % (95-100); ABG PCO2 40.7 MM HG (35-48); ABG PH 7.436 (7.35-7.45); ABG PO2 88.5 MM HG (80-95); ABG TCO2 25.3 MMOL/L (23-27)
[2019-12-22] MEDS: POTASSIUM CHLORIDE 20 MEQ TABLET PO PRN ×2 (05:37→08:59)
[2019-12-22] MEDS ORDERED: DIAZEPAM 5 MG TABLET PO ONE (07:25)
[2019-12-22] MEDS ORDERED: diphenhydrAMINE CAP 25 MG CAPSULE PO ONE (07:25)
[2019-12-22] MEDS: AMIODARONE 200 MG TABLET PO SCH (08:59)
[2019-12-22] MEDS: FUROSEMIDE 40 MG/4 ML VIAL IV SCH (08:59)
[2019-12-22] MEDS: METOPROLOL TARTRATE 25 MG TABLET PO SCH ×2 (08:59→21:02)
[2019-12-22] MEDS: AZITHROMYCIN 250 MG TABLET PO SCH (08:59)
[2019-12-22] MEDS: SODIUM CHLORIDE 0.45% 1,000 ML IV SCH ×2 (12:29→20:59)
[2019-12-22] MEDS ORDERED: HEPARIN/NACL 0.9% 2 UNITS/ML 1,000 ML IV ONE (12:59)
[2019-12-22] MEDS ORDERED: LIDOCAINE 1% 20 ML VIAL ONE (12:59)
[2019-12-22] MEDS ORDERED: HYDROmorphone 2 MG/1 ML VIAL ONE (13:26)
[2019-12-22] MEDS ORDERED: MIDAZOLAM 2 MG/2 ML VIAL ONE (13:26)
[2019-12-22] MEDS ORDERED: ZALEPLON 5 MG CAPSULE PO PRN (14:28)
[2019-12-22] MEDS: PANTOPRAZOLE 40 MG VIAL IV SCH (15:39)
[2019-12-22] MEDS: cefTRIAXone 1,000 MG in SYRINGE 1 EACH IV SCH (15:48)
[2019-12-23] MEDS: INSULIN REGULAR 100 UNIT/ML SUBCUT SCH ×4 (00:38→19:03)
[2019-12-23] MEDS: ALBUTEROL/IPRATROPIUM 3 ML NEB RESP TX SCH ×4 (01:55→19:15)
[2019-12-23 04:05] LABS: ABG Base Excess 1.8 MMOL/L (-2.5-2.5); ABG Oxygen Saturation 96.9 % (95-100); ABG PCO2 38.3 MM HG (35-48); ABG PH 7.438 (7.35-7.45); ABG PO2 81.6 MM HG (80-95); ABG TCO2 24.1 MMOL/L (23-27)
[2019-12-23 05:32] LABS: Basophils % 0.6 % (0.0-0.8); Eosinophils # 0.3 10*3/uL (0.0-0.87); Eosinophils % 5.1 % (0.00-10.9); Hematocrit 26.7 VOL% (35.7-47.0); Hemoglobin 8.3 GM/DL (12.0-16.0); Immature Granulocytes % 0.3 %; Immature Granulocytes Absolute 0.02 #; Lymphocytes # 1.8 10*3/uL (1.4-4.0); Lymphocytes % 27.6 % (21.3-54.2); Mean Corpuscular HGB Conc 31.1 GM/DL (32-36); Mean Platelet Volume 11.2 FL (9.6-12.0); Monocytes % 9.9 % (1.7-12.7); Neutrophils % 56.5 % (38.7-73.9); Platelet Count 198 T/CUMM (130-400); Red Blood Count 2.87 MC/CUMM (3.8-5.5); Red Cell Distribution Width 15.6 % (9.3-17.3); White Blood Count 6.5 T/CUMM (4-12)
[2019-12-23] MEDS: SODIUM CHLORIDE 0.45% 1,000 ML IV SCH (05:47)
[2019-12-23 06:11] LABS: Hypochromasia 2+; Microcytosis 1+; Platelet Estimate Adequate
[2019-12-23 06:17] LABS: Albumin 2.6 G/DL (3.4-5.0); Bilirubin,Total 1.3 MG/DL (0.2-1.0); Calcium 9.1 MG/DL (8.5-10.1); Osmolality,Calculated 284.3 MOS/KG (273-304); Total Protein 7.1 G/DL (6.4-8.3)
[2019-12-23] MEDS: METOPROLOL TARTRATE 25 MG TABLET PO SCH (09:01)
[2019-12-23] MEDS: AZITHROMYCIN 250 MG TABLET PO SCH (09:01)
[2019-12-23] MEDS: AMIODARONE 200 MG TABLET PO SCH (09:01)
[2019-12-23] MEDS: PANTOPRAZOLE 40 MG VIAL IV SCH (17:30)
[2019-12-23] MEDS: cefTRIAXone 1,000 MG in SYRINGE 1 EACH IV SCH (17:33)
[2019-12-23] MEDS: carvediloL 3.125 MG TABLET PO SCH (21:17)
[2019-12-24] MEDS: INSULIN REGULAR 100 UNIT/ML SUBCUT SCH ×5 (00:41→23:56)
[2019-12-24] MEDS: ALBUTEROL/IPRATROPIUM 3 ML NEB RESP TX SCH ×4 (01:43→19:00)
[2019-12-24 04:58] LABS: Basophils # 0.1 10*3/uL (0.0-0.2); Basophils % 1.1 % (0.0-0.8); Eosinophils # 0.3 10*3/uL (0.0-0.87); Eosinophils % 5.8 % (0.00-10.9); Hematocrit 26.9 VOL% (35.7-47.0); Hemoglobin 8.5 GM/DL (12.0-16.0); Immature Granulocytes % 0.4 %; Immature Granulocytes Absolute 0.02 #; Lymphocytes # 2.2 10*3/uL (1.4-4.0); Lymphocytes % 40.9 % (21.3-54.2); Mean Corpuscular HGB Conc 31.6 GM/DL (32-36); Mean Corpuscular Volume 90.3 FL (87-102); Mean Platelet Volume 11.4 FL (9.6-12.0); Monocytes % 8.6 % (1.7-12.7); Neutrophils % 43.2 % (38.7-73.9); Platelet Count 231 T/CUMM (130-400); Red Blood Count 2.98 MC/CUMM (3.8-5.5); Red Cell Distribution Width 15.2 % (9.3-17.3); White Blood Count 5.3 T/CUMM (4-12)
[2019-12-24 05:20] LABS: Albumin 2.8 G/DL (3.4-5.0); Bilirubin,Total 0.6 MG/DL (0.2-1.0); Calcium 9.7 MG/DL (8.5-10.1); Osmolality,Calculated 281.4 MOS/KG (273-304); Total Protein 7.4 G/DL (6.4-8.3)
[2019-12-24 05:21] LABS: Eosinophils 4 % (0-10); Lymphocytes 49 % (20-55); Platelet Estimate Normal; Segmented Neutrophils 39 % (50-85); Total Cells Counted 100
[2019-12-24 05:22] LABS: Hypochromasia Slight
[2019-12-24 05:26] LABS: % Iron Saturation 19.2 % (18-50); Ferritin 518.3 ng/ml (8-252)
[2019-12-24 05:36] LABS: Folate 9.7 NG/ML (5.4-24.0); Vitamin B12 602 PG/ML (211-911)
[2019-12-24 06:53] LABS: Sedimentation Rate-Westergren 125 MM/HR (0-30)
[2019-12-24] MEDS: POTASSIUM CHLORIDE 20 MEQ TABLET PO PRN (08:46)
[2019-12-24] MEDS: AMIODARONE 200 MG TABLET PO SCH (08:46)
[2019-12-24] MEDS: carvediloL 3.125 MG TABLET PO SCH ×2 (08:46→22:06)
[2019-12-24] MEDS ORDERED: POTASSIUM CHLORIDE 20 MEQ TABLET PO ONE (10:14)
[2019-12-24] MEDS: PANTOPRAZOLE 40 MG VIAL IV SCH (16:24)
[2019-12-24] MEDS: cefTRIAXone 1,000 MG in SYRINGE 1 EACH IV SCH (16:25)
[2019-12-24 16:40] LABS: Hemoglobin A1 (Alkaline) 98.2 % (96.5-98.5); Hemoglobin A2 (Alkaline) 1.8 % (1.5-3.5)
[2019-12-24] MEDS ORDERED: NITROGLYCERIN SL 0.4 MG TABLET SL ONE ×2 (18:44)
[2019-12-24] MEDS ORDERED: HEPARIN 5,000 UNIT/1 ML VIAL IV ONE (19:05)
[2019-12-24] MEDS ORDERED: TICAGRELOR 90 MG TABLET PO ONE (19:05)
[2019-12-24] MEDS ORDERED: ETOMIDATE 20 MG/10 ML VIAL IV ONE (19:08)
[2019-12-24] MEDS ORDERED: ASPIRIN CHEW 81 MG TABLET PO ONE (19:10)
[2019-12-24] MEDS ORDERED: ENOXAPARIN 30 MG/0.3 ML SYRINGE SUBCUT ONE (19:30)
[2019-12-24] MEDS ORDERED: MIDAZOLAM 2 MG/2 ML VIAL ONE (19:34)
[2019-12-24] MEDS ORDERED: fentaNYL 100 MCG/2 ML VIAL ONE (19:35)
[2019-12-24] MEDS ORDERED: LIDOCAINE 1% 20 ML VIAL ONE ×2 (19:38→20:37)
[2019-12-24] MEDS ORDERED: PHENYLEPHRINE DRIP 40 MG/250 ML PREMIX IV ONE (19:42)
[2019-12-24] MEDS ORDERED: HEPARIN/NACL 0.9% 2 UNITS/ML 500 ML IV ONE (20:27)
[2019-12-24] MEDS ORDERED: SODIUM CHLORIDE 0.9% 1,000 ML IV SCH (22:00)
[2019-12-24] MEDS: PHENYLEPHRINE DRIP 40 MG/250 ML PREMIX IV PRN (22:00)
[2019-12-24] MEDS: HEPARIN DRIP 25,000 UNITS/500 ML PREMIX IV SCH (22:35)
[2019-12-24 23:46] LABS: Calcium 8.9 MG/DL (8.5-10.1); Osmolality,Calculated 283.3 MOS/KG (273-304)
[2019-12-24 23:51] LABS: Troponin I 0.138 NG/ML (0.00-0.045)
[2019-12-25] MEDS: ALBUTEROL/IPRATROPIUM 3 ML NEB RESP TX SCH ×4 (00:57→19:33)
[2019-12-25 03:31] LABS: ABG Base Excess -0.7 MMOL/L (-2.5-2.5); ABG HCO3 23.8 MMOL/L (20-26); ABG Oxygen Saturation 99.5 % (95-100); ABG PCO2 44.2 MM HG (35-48); ABG PH 7.357 (7.35-7.45); ABG TCO2 23.2 MMOL/L (23-27); Allen Test Positive; Pt O2 Delivery Device Ventilator
[2019-12-25 04:17] LABS: Basophils % 0.5 % (0.0-0.8); Eosinophils # 0.2 10*3/uL (0.0-0.87); Eosinophils % 2.9 % (0.00-10.9); Hematocrit 21.9 VOL% (35.7-47.0); Immature Granulocytes % 0.5 %; Immature Granulocytes Absolute 0.03 #; Lymphocytes # 2.5 10*3/uL (1.4-4.0); Lymphocytes % 39.8 % (21.3-54.2); Mean Corpuscular Volume 91.6 FL (87-102); Mean Platelet Volume 11.2 FL (9.6-12.0); Monocytes % 9.4 % (1.7-12.7); Neutrophils % 46.9 % (38.7-73.9); Platelet Count 211 T/CUMM (130-400); Red Blood Count 2.39 MC/CUMM (3.8-5.5); Red Cell Distribution Width 15.2 % (9.3-17.3); White Blood Count 6.3 T/CUMM (4-12)
[2019-12-25 04:33] LABS: Albumin 2.4 G/DL (3.4-5.0); Bilirubin,Total 0.4 MG/DL (0.2-1.0); Total Protein 6.1 G/DL (6.4-8.3)
[2019-12-25 04:34] LABS: Prealbumin 19.3 MG/DL (20-40)
[2019-12-25 04:42] LABS: Burr Cells Slight; Hypochromasia 2+; Ovalocytes Slight; Platelet Estimate Adequate
[2019-12-25 04:43] LABS: Microcytosis Slight
[2019-12-25 06:18] LABS: CKMB % 3.2 %
[2019-12-25 06:19] LABS: Troponin I 0.111 NG/ML (0.00-0.045)
[2019-12-25] MEDS: INSULIN REGULAR 100 UNIT/ML SUBCUT SCH ×4 (06:20→23:43)
[2019-12-25] MEDS: ASPIRIN 325 MG TABLET PO SCH (08:09)
[2019-12-25] MEDS: POTASSIUM CHLORIDE 20 MEQ TABLET PO SCH (08:09)
[2019-12-25] MEDS: AMIODARONE 200 MG TABLET PO SCH (08:24)
[2019-12-25] MEDS ORDERED: FUROSEMIDE 40 MG/4 ML VIAL IV PRN (11:28)
[2019-12-25 11:39] LABS: Bilirubin,Urine Negative (Negative); Blood, Urine Small mg/dL (Negative); Glucose,Urine (UA) Negative (Negative); Ketones,Urine Negative (Negative); Mucus,Urine Occasional /LPF (Occasional); Nitrite,Urine Negative (Negative); Protein,Urine Negative; RBC,Urine 4 /HPF (0-4); Squamous Epithelial Cell,Urine Occasional /HPF (0-10); Urine Appearance CLEAR (Clear); Urine Color Yellow (Yellow); Urine Specific Gravity 1.035 (1.001-1.035); Urine Urobilinogen < 2.0 EU/DL (0.2-1.0); WBC,Urine 1 /HPF (0-6)
[2019-12-25] MEDS ORDERED: GLUCAGON 1 MG VIAL IM PRN (11:41)
[2019-12-25] MEDS ORDERED: DEXTROSE 50% 25 GM/50 ML VIAL IV PRN (11:41)
[2019-12-25] MEDS: SODIUM CHLORIDE 0.9% 1,000 ML IV SCH (12:47)
[2019-12-25 14:15] LABS: CKMB % 2.7 %; Troponin I 0.037 NG/ML (0.00-0.045)
[2019-12-25] MEDS: PANTOPRAZOLE 40 MG VIAL IV SCH (14:54)
[2019-12-25] MEDS: CHLORHEXIDINE 4% SOLN 118 ML BOTTLE TOP SCH ×2 (14:54→22:24)
[2019-12-25] MEDS: PHENYLEPHRINE DRIP 40 MG/250 ML PREMIX IV PRN (15:31)
[2019-12-25 16:02] LABS: Basophils # 0.1 10*3/uL (0.0-0.2); Basophils % 0.7 % (0.0-0.8); Eosinophils # 0.4 10*3/uL (0.0-0.87); Eosinophils % 5.1 % (0.00-10.9); Hematocrit 31.3 VOL% (35.7-47.0); Hemoglobin 10.1 GM/DL (12.0-16.0); Immature Granulocytes % 0.4 %; Immature Granulocytes Absolute 0.03 #; Lymphocytes # 2.2 10*3/uL (1.4-4.0); Lymphocytes % 31.7 % (21.3-54.2); Mean Corpuscular HGB Conc 32.3 GM/DL (32-36); Mean Corpuscular Volume 90.7 FL (87-102); Mean Platelet Volume 10.6 FL (9.6-12.0); NRBC # 0.04 10*3/uL; Neutrophils % 51.1 % (38.7-73.9); Platelet Count 201 T/CUMM (130-400); Red Blood Count 3.45 MC/CUMM (3.8-5.5); Red Cell Distribution Width 14.9 % (9.3-17.3); White Blood Count 6.9 T/CUMM (4-12)
[2019-12-25 16:32] LABS: Eosinophils 2 % (0-10); Lymphocytes 27 % (20-55); Nucleated Red Blood Cells 1 (0-5); Segmented Neutrophils 61 % (50-85); Total Cells Counted 100
[2019-12-25 16:33] LABS: Platelet Estimate Normal; Polychromasia 1+; Reactive Lymphocytes Slight
[2019-12-25] MEDS: cefTRIAXone 1,000 MG in SYRINGE 1 EACH IV SCH (16:48)
[2019-12-25] MEDS: CHLORHEXIDINE 0.12% ORAL RINSE 60 ML BOTTLE SWISH/SPIT SCH (22:10)
[2019-12-25] MEDS: HEPARIN DRIP 25,000 UNITS/500 ML PREMIX IV SCH (22:16)
[2019-12-26 03:38] LABS: Basophils # 0.1 10*3/uL (0.0-0.2); Basophils % 0.7 % (0.0-0.8); Eosinophils # 0.4 10*3/uL (0.0-0.87); Eosinophils % 4.8 % (0.00-10.9); Hematocrit 28.5 VOL% (35.7-47.0); Hemoglobin 9.2 GM/DL (12.0-16.0); Immature Granulocytes % 0.5 %; Immature Granulocytes Absolute 0.04 #; Lymphocytes # 2.5 10*3/uL (1.4-4.0); Lymphocytes % 28.9 % (21.3-54.2); Mean Corpuscular HGB Conc 32.3 GM/DL (32-36); Mean Corpuscular Volume 91.3 FL (87-102); Mean Platelet Volume 10.3 FL (9.6-12.0); Monocytes % 10.5 % (1.7-12.7); NRBC # 0.06 10*3/uL; Neutrophils % 54.6 % (38.7-73.9); Platelet Count 198 T/CUMM (130-400); Red Blood Count 3.12 MC/CUMM (3.8-5.5); Red Cell Distribution Width 15.3 % (9.3-17.3); White Blood Count 8.5 T/CUMM (4-12)
[2019-12-26] MEDS: PHENYLEPHRINE DRIP 40 MG/250 ML PREMIX IV PRN (03:46)
[2019-12-26 03:56] LABS: Calcium 9.3 MG/DL (8.5-10.1); Osmolality,Calculated 289.7 MOS/KG (273-304)
[2019-12-26 03:58] LABS: Eosinophils 5 % (0-10); Hypochromasia Slight; Lymphocytes 25 % (20-55); Platelet Estimate Normal; Segmented Neutrophils 63 % (50-85); Total Cells Counted 100
[2019-12-26 04:55] LABS: ABG Base Excess -0.6 MMOL/L (-2.5-2.5); ABG HCO3 23.2 MMOL/L (20-26); ABG Oxygen Saturation 98.6 % (95-100); ABG PCO2 34.5 MM HG (35-48); ABG PH 7.446 (7.35-7.45); ABG TCO2 24.3 MMOL/L (23-27); Allen Test Positive; Pt O2 Delivery Device Ventilator
[2019-12-26] MEDS ORDERED: CEFUROXIME INJ 1,500 MG in SYRINGE 1 EACH IV ONE (05:00)
[2019-12-26] MEDS ORDERED: VANCOMYCIN 500 MG VIAL ONE (05:12)
[2019-12-26] MEDS ORDERED: VANCOMYCIN 1,000 MG VIAL ONE (05:12)
[2019-12-26] MEDS ORDERED: PAPAVERINE 60 MG/2 ML VIAL ONE (05:12)
[2019-12-26] MEDS ORDERED: MIDAZOLAM 10 MG/2 ML VIAL ONE (05:48)
[2019-12-26] MEDS ORDERED: SUFentanil 250 MCG/5 ML AMP ONE (05:48)
[2019-12-26] MEDS: INSULIN REGULAR 100 UNIT/ML SUBCUT SCH ×2 (06:30→15:02)
[2019-12-26] MEDS: ALBUTEROL/IPRATROPIUM 3 ML NEB RESP TX SCH ×4 (07:15→13:43)
[2019-12-26 07:33] LABS: ABG Base Excess -0.8 MMOL/L (-2.5-2.5); ABG HCO3 23.7 MMOL/L (20-26); ABG Oxygen Saturation 98.4 % (95-100); ABG PCO2 40.5 MM HG (35-48); ABG PH 7.383 (7.35-7.45); ABG TCO2 22.3 MMOL/L (23-27); Glucose Heart Surgery 119 MG/DL (74-106); Hematocrit Heart Surgery 27.5 PERCENT (37-47); Hemoglobin Heart Surgery 8.9 G/DL (12.0-16.0); Ionized Calcium Arterial 1.29 MMOL/L (1.21-1.46); PCO2 Patient Temp Arterial 40.5 MMHG; PH Patient Temp Arterial 7.383; Patient Temperature 37 CELCIUS; Potassium Heart/CVR 4.2 MMOL/L (3.5-5.1); Sodium Heart/CVR 145 MMOL/L (135-145)
[2019-12-26] MEDS: ASPIRIN 325 MG TABLET PO SCH (08:37)
[2019-12-26] MEDS: CHLORHEXIDINE 0.12% ORAL RINSE 60 ML BOTTLE SWISH/SPIT SCH ×2 (08:37→21:07)
[2019-12-26] MEDS: POTASSIUM CHLORIDE 20 MEQ TABLET PO SCH (08:37)
[2019-12-26] MEDS: CHLORHEXIDINE 4% SOLN 118 ML BOTTLE TOP SCH (08:37)
[2019-12-26] MEDS: AMIODARONE 200 MG TABLET PO SCH (08:37)
[2019-12-26] MEDS ORDERED: ALBUMIN 5% 12.5 GM/250 ML VIAL IV ONE ×2 (08:52→12:27)
[2019-12-26] MEDS ORDERED: NITROGLYCERIN DRIP 50 MG/250 ML BOTTLE IV ONE (09:42)
[2019-12-26] MEDS ORDERED: PHENYLEPHRINE DRIP 20 MG/250 ML PREMIX IV ONE ×2 (09:42→15:23)
[2019-12-26] MEDS ORDERED: HEPARIN/NACL 0.9% 2 UNITS/ML 500 ML IV ONE (09:42)
[2019-12-26 09:48] LABS: PCO2 Patient Temp Venous 28.9 MM HG; PH Patient Temp Venous 7.467; PO2 Patient Temp Venous 32.6 MM HG; Potassium Heart/CVR 5.4 MMOL/L (3.5-5.1); VBG Base Excess -2.1 MEQ/L (0-4); VBG HCO3 22.4 MEQ/L (24-28); VBG Oxygen Saturation 75.5 %; VBG PCO2 33.4 MMHG (41-51); VBG PH 7.423; VBG PO2 40.2 MMHG (17-40)
[2019-12-26 10:21] LABS: Hematocrit Heart Surgery 21.7 PERCENT (37-47); Hemoglobin Heart Surgery 6.9 G/DL (12.0-16.0); PH Patient Temp Venous 7.518; PO2 Patient Temp Venous 30.9 MM HG; VBG Base Excess 1.9 MEQ/L (0-4); VBG HCO3 25.9 MEQ/L (24-28); VBG Oxygen Saturation 77.6 %; VBG PCO2 36.5 MMHG (41-51); VBG PH 7.458; VBG PO2 40.8 MMHG (17-40)
[2019-12-26 10:55] LABS: Hematocrit Heart Surgery 25.4 PERCENT (37-47); Hemoglobin Heart Surgery 8.2 G/DL (12.0-16.0); PCO2 Patient Temp Venous 32.6 MM HG; PH Patient Temp Venous 7.454; PO2 Patient Temp Venous 34.6 MM HG; Potassium Heart/CVR 5.2 MMOL/L (3.5-5.1); VBG Base Excess -0.5 MEQ/L (0-4); VBG HCO3 23.7 MEQ/L (24-28); VBG Oxygen Saturation 79.3 %; VBG PCO2 37.7 MMHG (41-51); VBG PH 7.41; VBG PO2 42.6 MMHG (17-40)
[2019-12-26 11:30] LABS: Hematocrit Heart Surgery 24.3 PERCENT (37-47); Hemoglobin Heart Surgery 7.8 G/DL (12.0-16.0); PCO2 Patient Temp Venous 36.6 MM HG; PH Patient Temp Venous 7.393; PO2 Patient Temp Venous 33.1 MM HG; Potassium Heart/CVR 5.7 MMOL/L (3.5-5.1); VBG Base Excess -2.2 MEQ/L (0-4); VBG HCO3 22.2 MEQ/L (24-28); VBG PCO2 38.4 MMHG (41-51); VBG PH 7.378; VBG PO2 35.5 MMHG (17-40)
[2019-12-26 11:51] LABS: Hematocrit Heart Surgery 22.1 PERCENT (37-47); Hemoglobin Heart Surgery 7.1 G/DL (12.0-16.0); PCO2 Patient Temp Venous 37.5 MM HG; PH Patient Temp Venous 7.468; PO2 Patient Temp Venous 38.9 MM HG; Potassium Heart/CVR 4.9 MMOL/L (3.5-5.1); VBG Base Excess 3.4 MEQ/L (0-4); VBG HCO3 27.2 MEQ/L (24-28); VBG Oxygen Saturation 76.2 %; VBG PCO2 37.5 MMHG (41-51); VBG PH 7.468; VBG PO2 38.9 MMHG (17-40)
[2019-12-26] MEDS ORDERED: PROTAMINE SULFATE 250 MG/25 ML VIAL IV ONE (12:26)
[2019-12-26] MEDS ORDERED: ALBUMIN 25% 25 GM/100 ML VIAL IV ONE (12:26)
[2019-12-26] MEDS ORDERED: SODIUM BICARBONATE 50 MEQ/50 ML VIAL IV ONE ×3 (12:26→15:27)
[2019-12-26] MEDS ORDERED: DEXTROSE 5% KCL 20 MEQ 20 MEQ/1,000 ML BAG IV ONE (12:26)
[2019-12-26] MEDS ORDERED: LIDOCAINE 2% 5 ML VIAL ONE (12:26)
[2019-12-26] MEDS ORDERED: MANNITOL 100 GM/500 ML BAG IV ONE (12:26)
[2019-12-26] MEDS ORDERED: HEPARIN 10,000 UNIT/10 ML VIAL ONE (12:27)
[2019-12-26] MEDS ORDERED: MAGNESIUM SULFATE 5 GM/10 ML VIAL IV ONE (12:27)
[2019-12-26] MEDS ORDERED: PROTAMINE SULFATE 50 MG/5 ML VIAL IV ONE ×2 (12:27→13:44)
[2019-12-26] MEDS ORDERED: FUROSEMIDE 20 MG/2 ML VIAL ONE (12:27)
[2019-12-26] MEDS ORDERED: methylPREDNISolone SOD SUC 1,000 MG/8 ML VIAL ONE (12:27)
[2019-12-26 12:58] LABS: ABG Base Excess -0.4 MMOL/L (-2.5-2.5); ABG HCO3 24.1 MMOL/L (20-26); ABG PCO2 38.1 MM HG (35-48); ABG PH 7.409 (7.35-7.45); ABG TCO2 22.9 MMOL/L (23-27); Glucose Heart Surgery 236 MG/DL (74-106); Hematocrit Heart Surgery 19.9 PERCENT (37-47); Ionized Calcium Arterial 1.15 MMOL/L (1.21-1.46); PCO2 Patient Temp Arterial 38.1 MMHG; PH Patient Temp Arterial 7.409; Patient Temperature 37 CELCIUS; Sodium Heart/CVR 144 MMOL/L (135-145)
[2019-12-26 12:59] LABS: Hemoglobin Heart Surgery 6.3 G/DL (12.0-16.0)
[2019-12-26] MEDS ORDERED: THROMBIN TOPICAL (RECOMBINANT) 5,000 UNIT VIAL TOP ONE (13:19)
[2019-12-26 13:30] LABS: ABG Base Excess -6.9 MMOL/L (-2.5-2.5); ABG HCO3 19.3 MMOL/L (20-26); ABG Oxygen Saturation 98.5 % (95-100); ABG PCO2 41.6 MM HG (35-48); ABG PH 7.285 (7.35-7.45); ABG PO2 208.7 MM HG (80-95); ABG TCO2 20.6 MMOL/L (23-27); Glucose Heart Surgery 264 MG/DL (74-106); Hemoglobin Heart Surgery 10.1 G/DL (12.0-16.0); Potassium Heart/CVR 3.9 MMOL/L (3.5-5.1); Sodium Heart/CVR 141 MMOL/L (135-145)
[2019-12-26] MEDS ORDERED: diphenhydrAMINE 50 MG/1 ML VIAL ONE ×2 (13:56→15:23)
[2019-12-26] MEDS ORDERED: FAMOTIDINE 20 MG/2 ML VIAL IV ONE ×2 (13:56→15:23)
[2019-12-26] MEDS ORDERED: DOBUTamine 500 MG/250 ML PREMIX IV ONE ×2 (14:10→15:22)
[2019-12-26] MEDS ORDERED: MIDAZOLAM 10 MG/2 ML VIAL IV PRN (14:25)
[2019-12-26] MEDS ORDERED: DEXTROSE 50% 25 GM/50 ML VIAL IV PRN ×2 (14:25)
[2019-12-26] MEDS ORDERED: ACETAMINOPHEN 650 MG SUPP RECTAL PRN (14:25)
[2019-12-26] MEDS ORDERED: CHLORHEXIDINE 4% SOLN 118 ML BOTTLE TOP PRN (14:25)
[2019-12-26] MEDS ORDERED: VECURONIUM 10 MG VIAL IV PRN ×2 (14:25)
[2019-12-26] MEDS ORDERED: MAGNESIUM SULF RIDER 2 GM in PREMIX 1 EACH IV PRN (14:25)
[2019-12-26] MEDS ORDERED: MAGNESIUM SULF RIDER 4 GM in PREMIX 1 EACH IV PRN (14:25)
[2019-12-26] MEDS ORDERED: INSULIN REGULAR 100 UNIT/ML IV ONE (14:25)
[2019-12-26] MEDS ORDERED: CALCIUM CHLORIDE 1,000 MG/10 ML SYRINGE IV PRN (14:25)
[2019-12-26] MEDS ORDERED: NITROPRUSSIDE 100 MG in DEXTROSE 5% 250 ML IV PRN (14:25)
[2019-12-26] MEDS ORDERED: PHENYLEPHRINE DRIP 40 MG/250 ML PREMIX IV PRN (14:25)
[2019-12-26] MEDS ORDERED: MORPHINE 10 MG/1 ML VIAL IV PRN (14:25)
[2019-12-26] MEDS ORDERED: MIDAZOLAM 2 MG/2 ML VIAL IV PRN (14:25)
[2019-12-26] MEDS ORDERED: EPINEPHrine 1 MG/ML VIAL ONE (14:28)
[2019-12-26] MEDS: SODIUM CHLORIDE 0.45% 1,000 ML IV SCH (14:30)
[2019-12-26] MEDS: LACTATED RINGERS 250 ML IV PRN ×9 (14:30→23:56)
[2019-12-26] MEDS ORDERED: SODIUM CHLORIDE 0.45% 1,000 ML IV SCH (14:30)
[2019-12-26] MEDS: SODIUM CHLORIDE 0.9% 1,000 ML IV SCH (15:02)
[2019-12-26 15:03] LABS: ABG HCO3 19.4 MMOL/L (20-26); ABG Oxygen Saturation 92.5 % (95-100); ABG PCO2 42.6 MM HG (35-48); ABG PH 7.286 (7.35-7.45); Glucose Heart Surgery 352 MG/DL (74-106); Hematocrit Heart Surgery 26.9 PERCENT (37-47); Hemoglobin Heart Surgery 8.7 G/DL (12.0-16.0); Potassium Heart/CVR 3.7 MMOL/L (3.5-5.1)
[2019-12-26 15:10] LABS: Basophils # 0.1 10*3/uL (0.0-0.2); Basophils % 0.4 % (0.0-0.8); Eosinophils # 0.2 10*3/uL (0.0-0.87); Eosinophils % 1.2 % (0.00-10.9); Hematocrit 26.3 VOL% (35.7-47.0); Hemoglobin 8.6 GM/DL (12.0-16.0); Immature Granulocytes % 1.7 %; Immature Granulocytes Absolute 0.24 #; Lymphocytes # 4.9 10*3/uL (1.4-4.0); Lymphocytes % 33.8 % (21.3-54.2); Mean Corpuscular HGB Conc 32.7 GM/DL (32-36); Mean Corpuscular Volume 89.5 FL (87-102); Mean Platelet Volume 10.1 FL (9.6-12.0); Monocytes % 8.4 % (1.7-12.7); NRBC # 0.15 10*3/uL; Neutrophils % 54.5 % (38.7-73.9); Platelet Count 145 T/CUMM (130-400); Red Blood Count 2.94 MC/CUMM (3.8-5.5); Red Cell Distribution Width 14.8 % (9.3-17.3); White Blood Count 14.5 T/CUMM (4-12)
[2019-12-26 15:20] LABS: INR 1.3; PT Patient Result 13.5 SECS (9.8-11.9); Partial Thromboplastin Time 29.6 SECS (23.9-33.8)
[2019-12-26] MEDS ORDERED: EPINEPHrine 1 MG/10 ML SYRINGE ONE (15:22)
[2019-12-26] MEDS ORDERED: CALCIUM CHLORIDE 1,000 MG/10 ML VIAL IV ONE (15:22)
[2019-12-26 15:23] LABS: CKMB % 9.1 %
[2019-12-26] MEDS ORDERED: SEVOFLURANE 1 UNIT/15 MINUTE INH ONE (15:23)
[2019-12-26] MEDS ORDERED: ePHEDrine 50 MG/ML VIAL ONE (15:23)
[2019-12-26] MEDS ORDERED: AMINOCAPROIC ACID 5,000 MG/20 ML VIAL ONE (15:23)
[2019-12-26] MEDS ORDERED: VECURONIUM 10 MG VIAL IV ONE (15:23)
[2019-12-26] MEDS ORDERED: SODIUM CHLORIDE 0.9% 2,000 ML IV ONE (15:24)
[2019-12-26] MEDS ORDERED: LACTATED RINGERS 2,000 ML IV ONE (15:24)
[2019-12-26] MEDS ORDERED: SODIUM CHLORIDE 0.9% 300 ML IV ONE (15:24)
[2019-12-26 15:26] LABS: Albumin 2.1 G/DL (3.4-5.0); Bilirubin,Total 0.6 MG/DL (0.2-1.0); Calcium 9.1 MG/DL (8.5-10.1); Osmolality,Calculated 313.9 MOS/KG (273-304); Total Protein 4.1 G/DL (6.4-8.3)
[2019-12-26 15:39] LABS: Troponin I 21.1 NG/ML (0.00-0.045)
[2019-12-26 15:45] LABS: Band Neutrophils 4 % (0-10); Hypochromasia 1+; Lymphocytes 31 % (20-55); Nucleated Red Blood Cells 2 (0-5); Segmented Neutrophils 60 % (50-85); Total Cells Counted 100
[2019-12-26 15:46] LABS: Platelet Estimate Adequate
[2019-12-26] MEDS: ALBUMIN 5% 12.5 GM in PREMIX 1 EACH IV PRN ×4 (16:03→23:23)
[2019-12-26 16:04] LABS: Soluble Transf Receptor (sTfR) 3.5 mg/L (1.8 - 4.6)
[2019-12-26] MEDS: INSULIN REGULAR DRIP 100 ML IV SCH (16:17)
[2019-12-26 16:34] LABS: Hematocrit Heart Surgery 32.8 PERCENT (37-47); Hemoglobin Heart Surgery 10.6 G/DL (12.0-16.0); PH Patient Temp Venous 7.323; PO2 Patient Temp Venous 22.1 MM HG; Potassium Heart/CVR 4.1 MMOL/L (3.5-5.1); VBG Base Excess -4.1 MEQ/L (0-4); VBG HCO3 20.1 MEQ/L (24-28); VBG Oxygen Saturation 38.3 %; VBG PH 7.323; VBG PO2 22.1 MMHG (17-40)
[2019-12-26] MEDS ORDERED: FUROSEMIDE 40 MG/4 ML VIAL IV ONE (16:45)
[2019-12-26] MEDS: DOBUTamine 500 MG/250 ML PREMIX IV SCH (16:48)
[2019-12-26 17:41] LABS: ABG Base Excess -4.9 MMOL/L (-2.5-2.5); ABG HCO3 20.4 MMOL/L (20-26); ABG Oxygen Saturation 97.9 % (95-100); ABG PCO2 29.3 MM HG (35-48); ABG PH 7.415 (7.35-7.45); ABG PO2 94.3 MM HG (80-95); ABG TCO2 17.1 MMOL/L (23-27); Glucose Heart Surgery 339 MG/DL (74-106); Hematocrit Heart Surgery 29.6 PERCENT (37-47); Hemoglobin Heart Surgery 9.6 G/DL (12.0-16.0); Potassium Heart/CVR 3.8 MMOL/L (3.5-5.1)
[2019-12-26] MEDS: INSULIN REGULAR 100 UNIT/ML IV PRN ×3 (17:45→23:05)
[2019-12-26] MEDS: POTASSIUM CHLORIDE RIDER 20 MEQ in PREMIX 1 EACH IV PRN ×2 (18:02→21:13)
[2019-12-26] MEDS ORDERED: SODIUM CHLORIDE 0.9% 1,000 ML IV PRN (20:19)
[2019-12-26 20:55] LABS: ABG Base Excess 2.1 MMOL/L (-2.5-2.5); ABG HCO3 26.3 MMOL/L (20-26); ABG Oxygen Saturation 98.5 % (95-100); ABG PCO2 26.7 MM HG (35-48); ABG PH 7.554 (7.35-7.45); ABG PO2 93.5 MM HG (80-95); Glucose Heart Surgery 309 MG/DL (74-106); Hematocrit Heart Surgery 33.5 PERCENT (37-47); Hemoglobin Heart Surgery 10.9 G/DL (12.0-16.0); Potassium Heart/CVR 3.9 MMOL/L (3.5-5.1)
[2019-12-26] MEDS: CEFUROXIME INJ 1,500 MG in SYRINGE 1 EACH IV SCH (21:15)
[2019-12-26 23:03] LABS: ABG Base Excess 1.2 MMOL/L (-2.5-2.5); ABG HCO3 25.5 MMOL/L (20-26); ABG Oxygen Saturation 98.4 % (95-100); ABG PCO2 31.9 MM HG (35-48); ABG PH 7.486 (7.35-7.45); ABG TCO2 21.8 MMOL/L (23-27); Glucose Heart Surgery 229 MG/DL (74-106); Hematocrit Heart Surgery 30.8 PERCENT (37-47); Potassium Heart/CVR 3.9 MMOL/L (3.5-5.1)
[2019-12-26 23:27] LABS: CKMB % 6.8 %
[2019-12-26 23:29] LABS: Troponin I 26.7 NG/ML (0.00-0.045)
[2019-12-27] MEDS: MORPHINE 4 MG/1 ML VIAL IV PRN ×2 (00:50→16:07)
[2019-12-27] MEDS ORDERED: FUROSEMIDE 40 MG/4 ML VIAL IV ONE ×3 (00:58→18:42)
[2019-12-27] MEDS: POTASSIUM CHLORIDE RIDER 20 MEQ in PREMIX 1 EACH IV PRN ×2 (01:03→05:17)
[2019-12-27] MEDS: LACTATED RINGERS 250 ML IV PRN (02:09)
[2019-12-27] MEDS: ALBUMIN 5% 12.5 GM in PREMIX 1 EACH IV PRN ×2 (02:15→11:55)
[2019-12-27] MEDS: POTASSIUM CHLORIDE RIDER 10 MEQ in PREMIX 1 EACH IV PRN ×2 (03:09→05:53)
[2019-12-27] MEDS: INSULIN REGULAR DRIP 100 ML IV SCH ×2 (04:14→17:19)
[2019-12-27 04:23] LABS: Basophils % 0.1 % (0.0-0.8); Hematocrit 24.6 VOL% (35.7-47.0); Hemoglobin 8.7 GM/DL (12.0-16.0); Immature Granulocytes % 0.6 %; Immature Granulocytes Absolute 0.05 #; Lymphocytes # 1.3 10*3/uL (1.4-4.0); Lymphocytes % 15.7 % (21.3-54.2); Mean Corpuscular HGB Conc 35.4 GM/DL (32-36); Mean Platelet Volume 11.1 FL (9.6-12.0); Monocytes % 7.1 % (1.7-12.7); NRBC # 0.16 10*3/uL; Neutrophils % 76.5 % (38.7-73.9); Red Blood Count 2.93 MC/CUMM (3.8-5.5); Red Cell Distribution Width 14.7 % (9.3-17.3); White Blood Count 8.1 T/CUMM (4-12)
[2019-12-27 04:23] LABS: ABG Base Excess 3.3 MMOL/L (-2.5-2.5); ABG HCO3 27.4 MMOL/L (20-26); ABG Oxygen Saturation 98.2 % (95-100); ABG PCO2 37.7 MM HG (35-48); ABG PH 7.465 (7.35-7.45); ABG PO2 96.1 MM HG (80-95); ABG TCO2 24.7 MMOL/L (23-27); Glucose Heart Surgery 105 MG/DL (74-106); Hematocrit Heart Surgery 29.2 PERCENT (37-47); Hemoglobin Heart Surgery 9.4 G/DL (12.0-16.0); Potassium Heart/CVR 3.9 MMOL/L (3.5-5.1)
[2019-12-27 04:30] LABS: Platelet Count 86 T/CUMM (130-400)
[2019-12-27 04:46] LABS: Albumin 3.3 G/DL (3.4-5.0); Bilirubin,Direct 0.18 MG/DL (0.0-0.20); Bilirubin,Total 0.5 MG/DL (0.2-1.0); Calcium 9.4 MG/DL (8.5-10.1); Osmolality,Calculated 300.7 MOS/KG (273-304); Platelet Estimate Decreased; Total Protein 5.2 G/DL (6.4-8.3)
[2019-12-27 06:11] LABS: CKMB % 6.3 %
[2019-12-27 06:12] LABS: Troponin I 20.8 NG/ML (0.00-0.045)
[2019-12-27] MEDS ORDERED: NITROGLYCERIN DRIP 50 MG/250 ML BOTTLE IV ONE (07:43)
[2019-12-27] MEDS: NITROGLYCERIN DRIP 50 MG/250 ML BOTTLE IV PRN (07:45)
[2019-12-27] MEDS: CHLORHEXIDINE 0.12% ORAL RINSE 60 ML BOTTLE SWISH/SPIT SCH ×2 (09:14→21:13)
[2019-12-27] MEDS: CEFUROXIME INJ 1,500 MG in SYRINGE 1 EACH IV SCH ×2 (09:15→21:13)
[2019-12-27 10:21] LABS: Calcium 9.6 MG/DL (8.5-10.1); Osmolality,Calculated 298.1 MOS/KG (273-304)
[2019-12-27 14:40] LABS: ABG Base Excess 2.7 MMOL/L (-2.5-2.5); ABG Oxygen Saturation 94.5 % (95-100); ABG PCO2 35.6 MM HG (35-48); ABG PH 7.482 (7.35-7.45); ABG PO2 75.8 MM HG (80-95); ABG TCO2 27.1 MMOL/L (23-27); Glucose Heart Surgery 112 MG/DL (74-106)
[2019-12-27 16:01] LABS: ABG PCO2 42.3 MM HG (35-48); ABG PH 7.411 (7.35-7.45)
[2019-12-27 16:02] LABS: ABG HCO3 26.1 MMOL/L (20-26); ABG Oxygen Saturation 90.8 % (95-100); ABG PO2 62.3 MM HG (80-95); ABG TCO2 24.4 MMOL/L (23-27); Glucose Heart Surgery 124 MG/DL (74-106); Hematocrit Heart Surgery 31.6 PERCENT (37-47); Hemoglobin Heart Surgery 10.2 G/DL (12.0-16.0); Potassium Heart/CVR 4.3 MMOL/L (3.5-5.1)
[2019-12-27] MEDS: ONDANSETRON 4 MG/2 ML VIAL IV PRN (16:05)
[2019-12-27 16:23] LABS: CKMB % 5.2 %; Troponin I 11.8 NG/ML (0.00-0.045)
[2019-12-27 17:33] LABS: ABG Base Excess 0.6 MMOL/L (-2.5-2.5); ABG HCO3 24.9 MMOL/L (20-26); ABG Oxygen Saturation 95.3 % (95-100); ABG PCO2 38.2 MM HG (35-48); ABG PH 7.422 (7.35-7.45); ABG PO2 77.5 MM HG (80-95); ABG TCO2 22.5 MMOL/L (23-27); Glucose Heart Surgery 145 MG/DL (74-106); Hematocrit Heart Surgery 31.6 PERCENT (37-47); Hemoglobin Heart Surgery 10.2 G/DL (12.0-16.0); Potassium Heart/CVR 4.4 MMOL/L (3.5-5.1)
[2019-12-27 19:48] LABS: ABG Base Excess 0.9 MMOL/L (-2.5-2.5); ABG HCO3 25.2 MMOL/L (20-26); ABG Oxygen Saturation 98.1 % (95-100); ABG PCO2 37.7 MM HG (35-48); ABG TCO2 22.6 MMOL/L (23-27); Glucose Heart Surgery 149 MG/DL (74-106); Hematocrit Heart Surgery 31.9 PERCENT (37-47); Hemoglobin Heart Surgery 10.3 G/DL (12.0-16.0); Potassium Heart/CVR 4.3 MMOL/L (3.5-5.1)
[2019-12-27] MEDS: INSULIN REGULAR 100 UNIT/ML SUBCUT SCH (20:53)
[2019-12-27] MEDS: METOPROLOL TARTRATE 25 MG TABLET PO SCH (20:54)
[2019-12-27] MEDS: SODIUM CHLORIDE 0.45% 1,000 ML IV SCH (23:47)
[2019-12-27] MEDS: DOBUTamine 500 MG/250 ML PREMIX IV SCH (23:48)
[2019-12-27 23:50] LABS: Hematocrit Heart Surgery 31.6 PERCENT (37-47); Hemoglobin Heart Surgery 10.2 G/DL (12.0-16.0); PCO2 Patient Temp Venous 39.6 MM HG; PH Patient Temp Venous 7.443; PO2 Patient Temp Venous 44.1 MM HG; Potassium Heart/CVR 4.4 MMOL/L (3.5-5.1); VBG Base Excess 2.8 MEQ/L (0-4); VBG HCO3 26.6 MEQ/L (24-28); VBG Oxygen Saturation 78.4 %; VBG PCO2 39.6 MMHG (41-51); VBG PH 7.443; VBG PO2 44.1 MMHG (17-40)
[2019-12-28] MEDS: INSULIN REGULAR 100 UNIT/ML SUBCUT SCH ×6 (00:03→21:40)
[2019-12-28] MEDS: NITROGLYCERIN DRIP 50 MG/250 ML BOTTLE IV PRN ×2 (02:12→17:38)
[2019-12-28 03:56] LABS: Basophils % 0.1 % (0.0-0.8); Hematocrit 28.8 VOL% (35.7-47.0); Hemoglobin 9.9 GM/DL (12.0-16.0); Immature Granulocytes Absolute 0.11 #; Lymphocytes # 1.6 10*3/uL (1.4-4.0); Lymphocytes % 14.2 % (21.3-54.2); Mean Corpuscular HGB Conc 34.4 GM/DL (32-36); Monocytes % 8.6 % (1.7-12.7); NRBC # 0.19 10*3/uL; Neutrophils % 76.1 % (38.7-73.9); Platelet Count 81 T/CUMM (130-400); Red Blood Count 3.31 MC/CUMM (3.8-5.5); Red Cell Distribution Width 15.9 % (9.3-17.3); White Blood Count 10.9 T/CUMM (4-12)
[2019-12-28 03:57] LABS: ABG Base Excess 3.1 MMOL/L (-2.5-2.5); ABG HCO3 27.2 MMOL/L (20-26); ABG PCO2 34.8 MM HG (35-48); ABG PH 7.487 (7.35-7.45); ABG TCO2 23.8 MMOL/L (23-27); Glucose Heart Surgery 179 MG/DL (74-106); Hematocrit Heart Surgery 30.9 PERCENT (37-47); Potassium Heart/CVR 4.4 MMOL/L (3.5-5.1)
[2019-12-28 04:08] LABS: PT Patient Result 10.4 SECS (9.8-11.9); Partial Thromboplastin Time 27.3 SECS (23.9-33.8)
[2019-12-28] MEDS ORDERED: SODIUM CHLORIDE 0.9% 1,000 ML IV PRN (04:16)
[2019-12-28 04:17] LABS: Alanine Aminotransferase 35 U/L (13-56); Albumin 3.1 G/DL (3.4-5.0); Alkaline Phosphatase 32 U/L (45-117); Aspartate Amino Transferase 66 U/L (0-37); Bilirubin,Total < 0.39 MG/DL (0.2-1.0); Blood Urea Nitrogen 18 MG/DL (7-18); Calcium 9.3 MG/DL (8.5-10.1); Estimated Glom Filtration Rate 79 ML/MIN; Glucose 184 MG/DL (74-106); Osmolality,Calculated 296.6 MOS/KG (273-304); Total Protein 5.2 G/DL (6.4-8.3)
[2019-12-28] MEDS ORDERED: FUROSEMIDE 40 MG/4 ML VIAL IV ONE ×2 (06:44→19:41)
[2019-12-28 07:13] LABS: ABG Base Excess 2.8 MMOL/L (-2.5-2.5); ABG HCO3 26.9 MMOL/L (20-26); ABG Oxygen Saturation 98.5 % (95-100); ABG PCO2 40.5 MM HG (35-48); ABG PH 7.434 (7.35-7.45); ABG TCO2 24.2 MMOL/L (23-27); Glucose Heart Surgery 191 MG/DL (74-106); Hematocrit Heart Surgery 35.2 PERCENT (37-47); Hemoglobin Heart Surgery 11.4 G/DL (12.0-16.0); Potassium Heart/CVR 4.3 MMOL/L (3.5-5.1)
[2019-12-28] MEDS: ALBUTEROL/IPRATROPIUM 3 ML NEB RESP TX SCH ×3 (07:18→19:29)
[2019-12-28] MEDS: ONDANSETRON 4 MG/2 ML VIAL IV PRN ×2 (07:41→16:32)
[2019-12-28] MEDS: MORPHINE 4 MG/1 ML VIAL IV PRN ×2 (07:45→16:35)
[2019-12-28] MEDS: PANTOPRAZOLE 40 MG VIAL IV SCH (08:57)
[2019-12-28] MEDS: METOPROLOL TARTRATE 25 MG TABLET PO SCH ×2 (08:57→21:46)
[2019-12-28] MEDS: CHLORHEXIDINE 0.12% ORAL RINSE 60 ML BOTTLE SWISH/SPIT SCH ×2 (09:00→21:46)
[2019-12-28 09:12] LABS: ABG Base Excess 3.1 MMOL/L (-2.5-2.5); ABG HCO3 27.2 MMOL/L (20-26); ABG Oxygen Saturation 96.8 % (95-100); ABG PCO2 43.4 MM HG (35-48); ABG PH 7.419 (7.35-7.45); ABG PO2 86.5 MM HG (80-95); ABG TCO2 25.1 MMOL/L (23-27); Glucose Heart Surgery 189 MG/DL (74-106); Hematocrit Heart Surgery 34.4 PERCENT (37-47); Hemoglobin Heart Surgery 11.2 G/DL (12.0-16.0); Potassium Heart/CVR 4.3 MMOL/L (3.5-5.1)
[2019-12-28 10:17] LABS: ABG HCO3 27.1 MMOL/L (20-26); ABG Oxygen Saturation 96.9 % (95-100); ABG PCO2 41.7 MM HG (35-48); ABG PH 7.429 (7.35-7.45); ABG PO2 87.4 MM HG (80-95); ABG TCO2 24.8 MMOL/L (23-27); Glucose Heart Surgery 182 MG/DL (74-106); Hematocrit Heart Surgery 33.2 PERCENT (37-47); Hemoglobin Heart Surgery 10.8 G/DL (12.0-16.0); Potassium Heart/CVR 4.3 MMOL/L (3.5-5.1)
[2019-12-28] MEDS: ALBUMIN 5% 12.5 GM in PREMIX 1 EACH IV PRN (10:56)
[2019-12-28 11:56] LABS: Basophils % 0.1 % (0.0-0.8); Hematocrit 33.5 VOL% (35.7-47.0); Hemoglobin 11.1 GM/DL (12.0-16.0); Immature Granulocytes % 0.9 %; Lymphocytes # 1.7 10*3/uL (1.4-4.0); Lymphocytes % 14.7 % (21.3-54.2); Mean Corpuscular HGB Conc 33.1 GM/DL (32-36); Mean Corpuscular Volume 89.1 FL (87-102); Mean Platelet Volume 11.1 FL (9.6-12.0); Monocytes % 8.9 % (1.7-12.7); Neutrophils % 75.4 % (38.7-73.9); Platelet Count 81 T/CUMM (130-400); Red Blood Count 3.76 MC/CUMM (3.8-5.5); White Blood Count 11.3 T/CUMM (4-12)
[2019-12-28 12:19] LABS: Platelet Estimate Decreased
[2019-12-28 12:26] LABS: Anisocytosis 2+; Polychromasia Slight
[2019-12-28 15:55] LABS: VBG Base Excess 3.6 MEQ/L (0-4); VBG HCO3 29.7 MEQ/L (24-28); VBG Oxygen Saturation 50.5 %; VBG PCO2 51.1 MMHG (41-51); VBG PH 7.382; VBG PO2 30.7 MMHG (17-40)
[2019-12-28] MEDS ORDERED: ALBUTEROL/IPRATROPIUM 3 ML NEB RESP TX ONE (16:40)
[2019-12-28] MEDS: WARFARIN 5 MG TABLET PO SCH (19:21)
[2019-12-28] MEDS: SODIUM CHLORIDE 0.45% 1,000 ML IV SCH (20:01)
[2019-12-28] MEDS: DOBUTamine 500 MG/250 ML PREMIX IV SCH (20:01)
[2019-12-29] MEDS: MORPHINE 4 MG/1 ML VIAL IV PRN
[2019-12-29] MEDS: ALBUTEROL/IPRATROPIUM 3 ML NEB RESP TX SCH ×4 (01:33→19:32)
[2019-12-29] MEDS: INSULIN REGULAR 100 UNIT/ML SUBCUT SCH ×6 (04:49→21:10)
[2019-12-29 04:54] LABS: Basophils % 0.2 % (0.0-0.8); Eosinophils % 0.1 % (0.00-10.9); Hematocrit 33.8 VOL% (35.7-47.0); Hemoglobin 11.2 GM/DL (12.0-16.0); Immature Granulocytes % 1.3 %; Immature Granulocytes Absolute 0.16 #; Lymphocytes # 1.8 10*3/uL (1.4-4.0); Lymphocytes % 15.3 % (21.3-54.2); Mean Corpuscular HGB Conc 33.1 GM/DL (32-36); Mean Corpuscular Volume 88.9 FL (87-102); Mean Platelet Volume 12.2 FL (9.6-12.0); Monocytes % 8.1 % (1.7-12.7); NRBC # 0.14 10*3/uL; Platelet Count 94 T/CUMM (130-400); Red Cell Distribution Width 15.9 % (9.3-17.3)
[2019-12-29 04:59] LABS: ABG Base Excess 3.7 MMOL/L (-2.5-2.5); ABG HCO3 27.7 MMOL/L (20-26); ABG Oxygen Saturation 94.3 % (95-100); ABG PCO2 44.4 MM HG (35-48); ABG PH 7.419 (7.35-7.45); ABG PO2 72.9 MM HG (80-95); ABG TCO2 25.7 MMOL/L (23-27)
[2019-12-29 05:06] LABS: PT Patient Result 10.3 SECS (9.8-11.9)
[2019-12-29 05:18] LABS: Band Neutrophils 1 % (0-10); Hypochromasia 1+; Lymphocytes 19 % (20-55); Microcytosis Slight; Nucleated Red Blood Cells 1 (0-5); Platelet Estimate Decreased; Segmented Neutrophils 74 % (50-85); Total Cells Counted 100
[2019-12-29] MEDS ORDERED: FUROSEMIDE 40 MG/4 ML VIAL IV ONE (05:33)
[2019-12-29] MEDS ORDERED: carvediloL 6.25 MG TABLET PO SCH (08:00)
[2019-12-29] MEDS: PANTOPRAZOLE 40 MG VIAL IV SCH (08:25)
[2019-12-29] MEDS: CHLORHEXIDINE 0.12% ORAL RINSE 60 ML BOTTLE SWISH/SPIT SCH ×2 (08:30→21:49)
[2019-12-29] MEDS ORDERED: FUROSEMIDE 40 MG/4 ML VIAL IV SCH (09:00)
[2019-12-29 10:46] LABS: Albumin 3.3 G/DL (3.4-5.0); Bilirubin,Direct 0.14 MG/DL (0.0-0.20); Bilirubin,Total 0.5 MG/DL (0.2-1.0); Calcium 8.9 MG/DL (8.5-10.1)
[2019-12-29] MEDS: DOBUTamine 500 MG/250 ML PREMIX IV SCH (16:19)
[2019-12-29] MEDS: LORATADINE 10 MG TABLET PO SCH (16:55)
[2019-12-29] MEDS: carvediloL 12.5 MG TABLET PO SCH (16:55)
[2019-12-29] MEDS: WARFARIN 5 MG TABLET PO SCH (17:00)
[2019-12-30] MEDS: INSULIN REGULAR 100 UNIT/ML SUBCUT SCH ×6 (00:45→20:11)
[2019-12-30] MEDS: ALBUTEROL/IPRATROPIUM 3 ML NEB RESP TX SCH ×4 (01:13→20:02)
[2019-12-30 05:09] LABS: Basophils % 0.1 % (0.0-0.8); Eosinophils # 0.1 10*3/uL (0.0-0.87); Eosinophils % 0.5 % (0.00-10.9); Hemoglobin 11.3 GM/DL (12.0-16.0); Immature Granulocytes % 0.7 %; Immature Granulocytes Absolute 0.08 #; Lymphocytes # 1.9 10*3/uL (1.4-4.0); Lymphocytes % 17.2 % (21.3-54.2); Mean Corpuscular HGB Conc 32.3 GM/DL (32-36); Mean Corpuscular Volume 91.4 FL (87-102); Mean Platelet Volume 10.5 FL (9.6-12.0); Monocytes % 8.7 % (1.7-12.7); NRBC # 0.02 10*3/uL; Neutrophils % 72.8 % (38.7-73.9); Platelet Count 76 T/CUMM (130-400); Red Blood Count 3.83 MC/CUMM (3.8-5.5); Red Cell Distribution Width 15.1 % (9.3-17.3); White Blood Count 10.9 T/CUMM (4-12)
[2019-12-30 05:32] LABS: Calcium 9.4 MG/DL (8.5-10.1); Osmolality,Calculated 287.1 MOS/KG (273-304)
[2019-12-30 05:57] LABS: INR 1.1
[2019-12-30] MEDS: SODIUM CHLORIDE 0.45% 1,000 ML IV SCH ×2 (06:24→17:50)
[2019-12-30] MEDS: POTASSIUM CHLORIDE RIDER 20 MEQ in PREMIX 1 EACH IV PRN (07:18)
[2019-12-30] MEDS: carvediloL 12.5 MG TABLET PO SCH ×2 (09:07→17:01)
[2019-12-30] MEDS: LORATADINE 10 MG TABLET PO SCH (09:07)
[2019-12-30] MEDS: FUROSEMIDE 40 MG/4 ML VIAL IV SCH ×2 (09:08→17:49)
[2019-12-30] MEDS: PANTOPRAZOLE 40 MG VIAL IV SCH (09:08)
[2019-12-30] MEDS: CHLORHEXIDINE 0.12% ORAL RINSE 60 ML BOTTLE SWISH/SPIT SCH ×2 (09:09→20:15)
[2019-12-30] MEDS ORDERED: LORATADINE 10 MG TABLET PO SCH (17:00)
[2019-12-30] MEDS: WARFARIN 5 MG TABLET PO SCH (17:01)
[2019-12-30] MEDS: DOBUTamine 500 MG/250 ML PREMIX IV SCH (17:50)
[2019-12-31] MEDS: ALBUTEROL/IPRATROPIUM 3 ML NEB RESP TX SCH ×4 (00:39→19:39)
[2019-12-31] MEDS: INSULIN REGULAR 100 UNIT/ML SUBCUT SCH ×3 (01:24→08:42)
[2019-12-31] MEDS: MORPHINE 4 MG/1 ML VIAL IV PRN (02:15)
[2019-12-31 05:36] LABS: INR 1.6; PT Patient Result 16.4 SECS (9.8-11.9)
[2019-12-31 05:40] LABS: Calcium 9.4 MG/DL (8.5-10.1); Osmolality,Calculated 283.3 MOS/KG (273-304)
[2019-12-31] MEDS: POTASSIUM CHLORIDE RIDER 20 MEQ in PREMIX 1 EACH IV PRN (06:30)
[2019-12-31] MEDS ORDERED: POTASSIUM CHLORIDE 20 MEQ TABLET PO ONE (08:40)
[2019-12-31] MEDS: PANTOPRAZOLE 40 MG VIAL IV SCH (08:42)
[2019-12-31] MEDS: LORATADINE 10 MG TABLET PO SCH (08:42)
[2019-12-31] MEDS: FUROSEMIDE 40 MG/4 ML VIAL IV SCH ×2 (08:42→18:16)
[2019-12-31] MEDS: carvediloL 12.5 MG TABLET PO SCH ×2 (08:42→18:12)
[2019-12-31] MEDS: CHLORHEXIDINE 0.12% ORAL RINSE 60 ML BOTTLE SWISH/SPIT SCH ×2 (08:43→20:59)
[2019-12-31] MEDS ORDERED: ZALEPLON 5 MG CAPSULE PO PRN (09:51)
[2019-12-31] MEDS ORDERED: MAGNESIUM SULF RIDER 4 GM in PREMIX 1 EACH IV PRN (09:51)
[2019-12-31] MEDS ORDERED: ACETAMINOPHEN 325 MG TABLET PO PRN (09:51)
[2019-12-31] MEDS ORDERED: ALUMINUM/MAGNES/SIMETH MAX STR 30 ML UDCUP PO PRN (09:51)
[2019-12-31] MEDS ORDERED: GLUCAGON 1 MG VIAL IM PRN (09:51)
[2019-12-31] MEDS ORDERED: MAGNESIUM SULF RIDER 2 GM in PREMIX 1 EACH IV PRN (09:51)
[2019-12-31] MEDS ORDERED: DEXTROSE 50% 25 GM/50 ML VIAL IV PRN (09:51)
[2019-12-31] MEDS ORDERED: ONDANSETRON 4 MG/2 ML VIAL IV PRN (09:51)
[2019-12-31] MEDS ORDERED: MAGNESIUM HYDROXIDE SUSP 30 ML UDCUP PO PRN (09:51)
[2019-12-31] MEDS ORDERED: cefTRIAXone 1,000 MG in SYRINGE 1 EACH IV SCH (11:00)
[2019-12-31] MEDS: WARFARIN 5 MG TABLET PO SCH (18:12)
[2020-01-01] MEDS: ALBUTEROL/IPRATROPIUM 3 ML NEB RESP TX SCH ×4 (00:05→19:42)
[2020-01-01 04:35] LABS: Basophils % 0.1 % (0.0-0.8); Eosinophils # 0.2 10*3/uL (0.0-0.87); Hematocrit 37.5 VOL% (35.7-47.0); Hemoglobin 12.3 GM/DL (12.0-16.0); Immature Granulocytes % 0.6 %; Immature Granulocytes Absolute 0.07 #; Lymphocytes # 2.2 10*3/uL (1.4-4.0); Lymphocytes % 19.1 % (21.3-54.2); Mean Corpuscular HGB Conc 32.8 GM/DL (32-36); Mean Corpuscular Volume 89.7 FL (87-102); Mean Platelet Volume 10.9 FL (9.6-12.0); Monocytes % 9.1 % (1.7-12.7); Neutrophils % 69.1 % (38.7-73.9); Platelet Count 141 T/CUMM (130-400); Red Blood Count 4.18 MC/CUMM (3.8-5.5); Red Cell Distribution Width 14.5 % (9.3-17.3); White Blood Count 11.2 T/CUMM (4-12)
[2020-01-01] MEDS: oxyCODONE/ACETAMINOPHEN 5-325 MG TABLET PO PRN ×2 (04:39→17:09)
[2020-01-01 04:51] LABS: INR 1.9; PT Patient Result 19.8 SECS (9.8-11.9)
[2020-01-01 05:02] LABS: Alanine Aminotransferase 90 U/L (13-56); Albumin 2.8 G/DL (3.4-5.0); Alkaline Phosphatase 68 U/L (45-117); Aspartate Amino Transferase 61 U/L (0-37); Bilirubin,Indirect 0.8 MG/DL (0.0-1.0); Blood Urea Nitrogen 16 MG/DL (7-18); Calcium 9.6 MG/DL (8.5-10.1); Estimated Glom Filtration Rate 91 ML/MIN; Glucose 123 MG/DL (74-106); Osmolality,Calculated 282.3 MOS/KG (273-304); Total Protein 6.1 G/DL (6.4-8.3)
[2020-01-01 05:04] LABS: Troponin I 0.939 NG/ML (0.00-0.045)
[2020-01-01] MEDS: POTASSIUM CHLORIDE 20 MEQ TABLET PO PRN (06:31)
[2020-01-01] MEDS: CHLORHEXIDINE 0.12% ORAL RINSE 60 ML BOTTLE SWISH/SPIT SCH ×2 (09:53→20:54)
[2020-01-01] MEDS: FERROUS SULFATE 325 MG TABLET PO SCH (09:54)
[2020-01-01] MEDS: PANTOPRAZOLE 40 MG TABLET PO SCH (09:54)
[2020-01-01] MEDS: DOCUSATE SODIUM 100 MG CAPSULE PO SCH (09:54)
[2020-01-01] MEDS: FUROSEMIDE 40 MG/4 ML VIAL IV SCH ×2 (09:54→17:10)
[2020-01-01] MEDS: carvediloL 12.5 MG TABLET PO SCH ×2 (09:54→17:09)
[2020-01-01] MEDS: LORATADINE 10 MG TABLET PO SCH (09:54)
[2020-01-01] MEDS: ASPIRIN EC 81 MG TABLET PO SCH (09:54)
[2020-01-01] MEDS: WARFARIN 5 MG TABLET PO SCH (17:09)
[2020-01-02] MEDS: ALBUTEROL/IPRATROPIUM 3 ML NEB RESP TX SCH ×4 (00:07→19:50)
[2020-01-02 05:01] LABS: INR 2.2; PT Patient Result 22.4 SECS (9.8-11.9)
[2020-01-02 05:24] LABS: Basophils % 0.2 % (0.0-0.8); Eosinophils # 0.3 10*3/uL (0.0-0.87); Hematocrit 37.1 VOL% (35.7-47.0); Immature Granulocytes % 1.1 %; Lymphocytes # 2.1 10*3/uL (1.4-4.0); Lymphocytes % 22.4 % (21.3-54.2); Mean Corpuscular HGB Conc 32.3 GM/DL (32-36); Mean Corpuscular Volume 91.6 FL (87-102); Monocytes % 8.1 % (1.7-12.7); Neutrophils % 65.2 % (38.7-73.9); Platelet Count 185 T/CUMM (130-400); Red Blood Count 4.05 MC/CUMM (3.8-5.5); Red Cell Distribution Width 14.4 % (9.3-17.3); White Blood Count 9.5 T/CUMM (4-12)
[2020-01-02 05:28] LABS: Alanine Aminotransferase 102 U/L (13-56); Albumin 2.8 G/DL (3.4-5.0); Alkaline Phosphatase 74 U/L (45-117); Aspartate Amino Transferase 64 U/L (0-37); Bilirubin,Indirect 1.1 MG/DL (0.0-1.0); Blood Urea Nitrogen 16 MG/DL (7-18); Calcium 9.7 MG/DL (8.5-10.1); Estimated Glom Filtration Rate 89 ML/MIN; Glucose 110 MG/DL (74-106); Osmolality,Calculated 280.4 MOS/KG (273-304); Total Protein 6.2 G/DL (6.4-8.3)
[2020-01-02 05:30] LABS: Troponin I 0.638 NG/ML (0.00-0.045)
[2020-01-02] MEDS: DOCUSATE SODIUM 100 MG CAPSULE PO SCH (09:29)
[2020-01-02] MEDS: ASPIRIN EC 81 MG TABLET PO SCH (09:29)
[2020-01-02] MEDS: LORATADINE 10 MG TABLET PO SCH (09:29)
[2020-01-02] MEDS: FUROSEMIDE 40 MG/4 ML VIAL IV SCH ×2 (09:29→16:21)
[2020-01-02] MEDS: POTASSIUM CHLORIDE 20 MEQ TABLET PO PRN (09:30)
[2020-01-02] MEDS: carvediloL 12.5 MG TABLET PO SCH ×2 (09:30→16:20)
[2020-01-02] MEDS: PANTOPRAZOLE 40 MG TABLET PO SCH (09:30)
[2020-01-02] MEDS: FERROUS SULFATE 325 MG TABLET PO SCH (09:30)
[2020-01-02] MEDS: CHLORHEXIDINE 0.12% ORAL RINSE 60 ML BOTTLE SWISH/SPIT SCH ×2 (09:31→20:53)
[2020-01-02] MEDS: WARFARIN 5 MG TABLET PO SCH (18:26)
[2020-01-02] MEDS: oxyCODONE/ACETAMINOPHEN 5-325 MG TABLET PO PRN (20:51)
[2020-01-02] MEDS ORDERED: WARFARIN 5 MG TABLET PO SCH (21:00)
[2020-01-03] MEDS: ALBUTEROL/IPRATROPIUM 3 ML NEB RESP TX SCH ×4 (00:11→20:51)
[2020-01-03 06:53] LABS: INR 2.6; PT Patient Result 26.7 SECS (9.8-11.9)
[2020-01-03 07:19] LABS: Calcium 9.8 MG/DL (8.5-10.1); Osmolality,Calculated 278.5 MOS/KG (273-304)
[2020-01-03] MEDS: FERROUS SULFATE 325 MG TABLET PO SCH (09:03)
[2020-01-03] MEDS: CHLORHEXIDINE 0.12% ORAL RINSE 60 ML BOTTLE SWISH/SPIT SCH ×2 (09:03→21:51)
[2020-01-03] MEDS: ASPIRIN EC 81 MG TABLET PO SCH (09:03)
[2020-01-03] MEDS: PANTOPRAZOLE 40 MG TABLET PO SCH (09:03)
[2020-01-03] MEDS: LORATADINE 10 MG TABLET PO SCH (09:03)
[2020-01-03] MEDS: DOCUSATE SODIUM 100 MG CAPSULE PO SCH (09:03)
[2020-01-03] MEDS: FUROSEMIDE 40 MG/4 ML VIAL IV SCH ×2 (09:03→17:46)
[2020-01-03] MEDS: carvediloL 12.5 MG TABLET PO SCH ×2 (09:03→17:46)
[2020-01-03] MEDS: oxyCODONE/ACETAMINOPHEN 5-325 MG TABLET PO PRN (09:14)
[2020-01-03] MEDS: WARFARIN 2.5 MG TABLET PO SCH (17:46)
[2020-01-04] MEDS: ALBUTEROL/IPRATROPIUM 3 ML NEB RESP TX SCH ×4 (00:12→20:10)
[2020-01-04] MEDS: oxyCODONE/ACETAMINOPHEN 5-325 MG TABLET PO PRN ×2 (00:29→21:09)
[2020-01-04 04:41] LABS: Basophils % 0.4 % (0.0-0.8); Eosinophils # 0.2 10*3/uL (0.0-0.87); Eosinophils % 2.6 % (0.00-10.9); Hematocrit 35.7 VOL% (35.7-47.0); Hemoglobin 11.3 GM/DL (12.0-16.0); Immature Granulocytes % 0.8 %; Immature Granulocytes Absolute 0.06 #; Lymphocytes # 1.8 10*3/uL (1.4-4.0); Lymphocytes % 24.7 % (21.3-54.2); Mean Corpuscular HGB Conc 31.7 GM/DL (32-36); Mean Corpuscular Volume 91.5 FL (87-102); Mean Platelet Volume 10.6 FL (9.6-12.0); Neutrophils % 62.5 % (38.7-73.9); Platelet Count 258 T/CUMM (130-400); Red Cell Distribution Width 14.4 % (9.3-17.3); White Blood Count 7.4 T/CUMM (4-12)
[2020-01-04 04:50] LABS: INR 2.6
[2020-01-04 04:53] LABS: Alanine Aminotransferase 81 U/L (13-56); Albumin 2.7 G/DL (3.4-5.0); Alkaline Phosphatase 73 U/L (45-117); Aspartate Amino Transferase 48 U/L (0-37); Bilirubin,Indirect 0.9 MG/DL (0.0-1.0); Blood Urea Nitrogen 17 MG/DL (7-18); Calcium 9.7 MG/DL (8.5-10.1); Estimated Glom Filtration Rate 79 ML/MIN; Glucose 121 MG/DL (74-106); Osmolality,Calculated 279.5 MOS/KG (273-304); Total Protein 6.1 G/DL (6.4-8.3)
[2020-01-04 04:57] LABS: Troponin I 0.222 NG/ML (0.00-0.045)
[2020-01-04] MEDS ORDERED: POTASSIUM CHLORIDE 20 MEQ TABLET PO ONE (08:20)
[2020-01-04] MEDS: DOCUSATE SODIUM 100 MG CAPSULE PO SCH (09:44)
[2020-01-04] MEDS: MULTIVITAMIN (BEROCCA) TABLET PO SCH (09:44)
[2020-01-04] MEDS: LORATADINE 10 MG TABLET PO SCH (09:44)
[2020-01-04] MEDS: PANTOPRAZOLE 40 MG TABLET PO SCH (09:44)
[2020-01-04] MEDS: ASPIRIN EC 81 MG TABLET PO SCH (09:44)
[2020-01-04] MEDS: FUROSEMIDE 40 MG/4 ML VIAL IV SCH ×2 (09:46→17:30)
[2020-01-04] MEDS: FERROUS SULFATE 325 MG TABLET PO SCH (09:46)
[2020-01-04] MEDS: carvediloL 12.5 MG TABLET PO SCH ×2 (09:46→17:30)
[2020-01-04] MEDS: WARFARIN 2.5 MG TABLET PO SCH (17:30)
[2020-01-04] MEDS: CHLORHEXIDINE 0.12% ORAL RINSE 60 ML BOTTLE SWISH/SPIT SCH ×2 (17:30→21:07)
[2020-01-05] MEDS: ALBUTEROL/IPRATROPIUM 3 ML NEB RESP TX SCH ×4 (00:20→22:28)
[2020-01-05 06:33] LABS: Basophils % 0.5 % (0.0-0.8); Eosinophils # 0.2 10*3/uL (0.0-0.87); Eosinophils % 2.9 % (0.00-10.9); Hematocrit 34.9 VOL% (35.7-47.0); Hemoglobin 11.5 GM/DL (12.0-16.0); Immature Granulocytes % 0.7 %; Immature Granulocytes Absolute 0.05 #; Lymphocytes # 1.5 10*3/uL (1.4-4.0); Lymphocytes % 20.3 % (21.3-54.2); Mean Corpuscular Volume 89.5 FL (87-102); Mean Platelet Volume 10.3 FL (9.6-12.0); Monocytes % 9.2 % (1.7-12.7); Neutrophils % 66.4 % (38.7-73.9); Platelet Count 308 T/CUMM (130-400); Red Cell Distribution Width 14.3 % (9.3-17.3); White Blood Count 7.6 T/CUMM (4-12)
[2020-01-05 07:00] LABS: Alanine Aminotransferase 77 U/L (13-56); Albumin 2.9 G/DL (3.4-5.0); Alkaline Phosphatase 86 U/L (45-117); Aspartate Amino Transferase 48 U/L (0-37); Bilirubin,Indirect 0.4 MG/DL (0.0-1.0); Blood Urea Nitrogen 15 MG/DL (7-18); Calcium 9.7 MG/DL (8.5-10.1); Estimated Glom Filtration Rate 68 ML/MIN; Glucose 123 MG/DL (74-106); Osmolality,Calculated 278.5 MOS/KG (273-304); Total Protein 6.5 G/DL (6.4-8.3)
[2020-01-05 07:04] LABS: Troponin I 0.166 NG/ML (0.00-0.045)
[2020-01-05 07:40] LABS: PT Patient Result 21.2 SECS (9.8-11.9)
[2020-01-05] MEDS: FUROSEMIDE 40 MG TABLET PO SCH ×2 (09:28→16:29)
[2020-01-05] MEDS: FERROUS SULFATE 325 MG TABLET PO SCH (09:28)
[2020-01-05] MEDS: MULTIVITAMIN (BEROCCA) TABLET PO SCH (09:28)
[2020-01-05] MEDS: ASPIRIN EC 81 MG TABLET PO SCH (09:28)
[2020-01-05] MEDS: PANTOPRAZOLE 40 MG TABLET PO SCH (09:28)
[2020-01-05] MEDS: carvediloL 12.5 MG TABLET PO SCH ×2 (09:28→16:29)
[2020-01-05] MEDS: LORATADINE 10 MG TABLET PO SCH (09:28)
[2020-01-05] MEDS: DOCUSATE SODIUM 100 MG CAPSULE PO SCH (09:28)
[2020-01-05] MEDS: CHLORHEXIDINE 0.12% ORAL RINSE 60 ML BOTTLE SWISH/SPIT SCH ×2 (09:29→20:46)
[2020-01-05] MEDS ORDERED: ALBUTEROL/IPRATROPIUM 3 ML NEB RESP TX ONE (12:36)
[2020-01-05] MEDS: POTASSIUM CHLORIDE 20 MEQ TABLET PO PRN (17:17)
[2020-01-05] MEDS ORDERED: WARFARIN 5 MG TABLET PO SCH (18:00)
[2020-01-05] MEDS: oxyCODONE/ACETAMINOPHEN 5-325 MG TABLET PO PRN (20:50)
[2020-01-06] MEDS: ALBUTEROL/IPRATROPIUM 3 ML NEB RESP TX SCH ×4 (02:51→19:06)
[2020-01-06 06:43] LABS: Calcium 9.7 MG/DL (8.5-10.1); Osmolality,Calculated 278.5 MOS/KG (273-304)
[2020-01-06 06:47] LABS: Basophils % 0.4 % (0.0-0.8); Eosinophils # 0.2 10*3/uL (0.0-0.87); Eosinophils % 2.6 % (0.00-10.9); Hematocrit 33.6 VOL% (35.7-47.0); Hemoglobin 10.9 GM/DL (12.0-16.0); Immature Granulocytes % 0.4 %; Immature Granulocytes Absolute 0.03 #; Lymphocytes # 1.6 10*3/uL (1.4-4.0); Lymphocytes % 22.6 % (21.3-54.2); Mean Corpuscular HGB Conc 32.4 GM/DL (32-36); Mean Corpuscular Volume 90.1 FL (87-102); Mean Platelet Volume 10.7 FL (9.6-12.0); Platelet Count 319 T/CUMM (130-400); Red Blood Count 3.73 MC/CUMM (3.8-5.5); Red Cell Distribution Width 14.1 % (9.3-17.3); White Blood Count 7.2 T/CUMM (4-12)
[2020-01-06 06:57] LABS: PT Patient Result 21.1 SECS (9.8-11.9)
[2020-01-06] MEDS ORDERED: ALBUTEROL/IPRATROPIUM 3 ML NEB RESP TX ONE ×3 (07:01→18:34)
[2020-01-06] MEDS: ASPIRIN EC 81 MG TABLET PO SCH (09:40)
[2020-01-06] MEDS: FUROSEMIDE 40 MG TABLET PO SCH ×2 (09:41→16:43)
[2020-01-06] MEDS: carvediloL 12.5 MG TABLET PO SCH ×2 (09:41→16:43)
[2020-01-06] MEDS: PANTOPRAZOLE 40 MG TABLET PO SCH (09:41)
[2020-01-06] MEDS: LORATADINE 10 MG TABLET PO SCH (09:41)
[2020-01-06] MEDS: DOCUSATE SODIUM 100 MG CAPSULE PO SCH (09:41)
[2020-01-06] MEDS: MULTIVITAMIN (BEROCCA) TABLET PO SCH (09:41)
[2020-01-06] MEDS: CHLORHEXIDINE 0.12% ORAL RINSE 60 ML BOTTLE SWISH/SPIT SCH ×2 (09:41→21:12)
[2020-01-06] MEDS: FERROUS SULFATE 325 MG TABLET PO SCH (09:45)
[2020-01-06] MEDS ORDERED: WARFARIN 7.5 MG TABLET PO SCH (18:00)
[2020-01-06] MEDS: oxyCODONE/ACETAMINOPHEN 5-325 MG TABLET PO PRN (21:14)
[2020-01-07] MEDS: ALBUTEROL/IPRATROPIUM 3 ML NEB RESP TX SCH ×4 (01:52→18:47)
[2020-01-07 04:43] LABS: Basophils % 0.4 % (0.0-0.8); Eosinophils # 0.2 10*3/uL (0.0-0.87); Hematocrit 31.8 VOL% (35.7-47.0); Hemoglobin 10.4 GM/DL (12.0-16.0); Immature Granulocytes % 0.4 %; Immature Granulocytes Absolute 0.03 #; Lymphocytes % 29.4 % (21.3-54.2); Mean Corpuscular HGB Conc 32.7 GM/DL (32-36); Mean Corpuscular Volume 89.1 FL (87-102); Monocytes % 8.4 % (1.7-12.7); Neutrophils % 58.4 % (38.7-73.9); Platelet Count 326 T/CUMM (130-400); Red Blood Count 3.57 MC/CUMM (3.8-5.5); Red Cell Distribution Width 14.2 % (9.3-17.3); White Blood Count 6.8 T/CUMM (4-12)
[2020-01-07 04:56] LABS: Calcium 9.5 MG/DL (8.5-10.1); Osmolality,Calculated 280.4 MOS/KG (273-304)
[2020-01-07 05:15] LABS: Eosinophils 1 % (0-10); Lymphocytes 28 % (20-55); Platelet Estimate Normal; Segmented Neutrophils 66 % (50-85); Total Cells Counted 100
[2020-01-07 05:16] LABS: Hypochromasia Slight
[2020-01-07 05:38] LABS: INR 2.8; PT Patient Result 28.5 SECS (9.8-11.9)
[2020-01-07] MEDS: FERROUS SULFATE 325 MG TABLET PO SCH (09:59)
[2020-01-07] MEDS: PANTOPRAZOLE 40 MG TABLET PO SCH (09:59)
[2020-01-07] MEDS: LORATADINE 10 MG TABLET PO SCH (09:59)
[2020-01-07] MEDS: DOCUSATE SODIUM 100 MG CAPSULE PO SCH (09:59)
[2020-01-07] MEDS: carvediloL 12.5 MG TABLET PO SCH ×2 (09:59→16:33)
[2020-01-07] MEDS: FUROSEMIDE 40 MG TABLET PO SCH ×2 (09:59→16:33)
[2020-01-07] MEDS: ASPIRIN EC 81 MG TABLET PO SCH (09:59)
[2020-01-07] MEDS: MULTIVITAMIN (BEROCCA) TABLET PO SCH (09:59)
[2020-01-07] MEDS: CHLORHEXIDINE 0.12% ORAL RINSE 60 ML BOTTLE SWISH/SPIT SCH ×2 (09:59→21:32)
[2020-01-07] MEDS ORDERED: WARFARIN 5 MG TABLET PO SCH (18:00)
[2020-01-07] MEDS ORDERED: ALBUTEROL/IPRATROPIUM 3 ML NEB RESP TX ONE (18:41)
[2020-01-07] MEDS: oxyCODONE/ACETAMINOPHEN 5-325 MG TABLET PO PRN (21:33)
[2020-01-08] MEDS: ALBUTEROL/IPRATROPIUM 3 ML NEB RESP TX SCH ×4 (05:33→19:26)
[2020-01-08 05:34] LABS: Basophils % 0.5 % (0.0-0.8); Eosinophils # 0.2 10*3/uL (0.0-0.87); Hematocrit 33.7 VOL% (35.7-47.0); Hemoglobin 10.7 GM/DL (12.0-16.0); Immature Granulocytes % 0.8 %; Immature Granulocytes Absolute 0.06 #; Lymphocytes # 2.2 10*3/uL (1.4-4.0); Lymphocytes % 29.4 % (21.3-54.2); Mean Corpuscular HGB Conc 31.8 GM/DL (32-36); Mean Corpuscular Volume 91.1 FL (87-102); Monocytes % 8.1 % (1.7-12.7); Neutrophils % 58.2 % (38.7-73.9); Platelet Count 375 T/CUMM (130-400); Red Cell Distribution Width 14.3 % (9.3-17.3); White Blood Count 7.6 T/CUMM (4-12)
[2020-01-08 05:39] LABS: INR 3.4; PT Patient Result 34.4 SECS (9.8-11.9)
[2020-01-08 05:49] LABS: Calcium 9.4 MG/DL (8.5-10.1); Osmolality,Calculated 280.3 MOS/KG (273-304)
[2020-01-08 05:52] LABS: Hypochromasia 1+; Microcytosis 1+; Platelet Estimate Adequate
[2020-01-08] MEDS: ASPIRIN EC 81 MG TABLET PO SCH (09:19)
[2020-01-08] MEDS: MULTIVITAMIN (BEROCCA) TABLET PO SCH (09:19)
[2020-01-08] MEDS: FUROSEMIDE 40 MG TABLET PO SCH ×2 (09:19→16:06)
[2020-01-08] MEDS: carvediloL 12.5 MG TABLET PO SCH ×2 (09:19→16:06)
[2020-01-08] MEDS: LORATADINE 10 MG TABLET PO SCH (09:19)
[2020-01-08] MEDS: PANTOPRAZOLE 40 MG TABLET PO SCH (09:19)
[2020-01-08] MEDS: DOCUSATE SODIUM 100 MG CAPSULE PO SCH (09:20)
[2020-01-08] MEDS: CHLORHEXIDINE 0.12% ORAL RINSE 60 ML BOTTLE SWISH/SPIT SCH ×2 (09:20→21:32)
[2020-01-08] MEDS: FERROUS SULFATE 325 MG TABLET PO SCH (09:20)
[2020-01-08] MEDS: POLYETHYLENE GLYCOL POWDER 17 GM PACK PO SCH (09:20)
[2020-01-08] MEDS: oxyCODONE/ACETAMINOPHEN 5-325 MG TABLET PO PRN (21:32)
[2020-01-09] MEDS: ALBUTEROL/IPRATROPIUM 3 ML NEB RESP TX SCH ×3 (00:10→13:50)
[2020-01-09 06:11] LABS: INR 3.3; PT Patient Result 33.6 SECS (9.8-11.9)
[2020-01-09 06:23] LABS: Calcium 9.8 MG/DL (8.5-10.1); Osmolality,Calculated 281.3 MOS/KG (273-304)
[2020-01-09] MEDS ORDERED: WARFARIN 2.5 MG TABLET PO ONE (07:49)
[2020-01-09] MEDS: FUROSEMIDE 40 MG TABLET PO SCH (08:52)
[2020-01-09 08:53] VITALS: BP 125/46
[2020-01-09] MEDS: FERROUS SULFATE 325 MG TABLET PO SCH (08:53)
[2020-01-09] MEDS: DOCUSATE SODIUM 100 MG CAPSULE PO SCH (08:53)
[2020-01-09] MEDS: LORATADINE 10 MG TABLET PO SCH (08:53)
[2020-01-09] MEDS: ASPIRIN EC 81 MG TABLET PO SCH (08:53)
[2020-01-09] MEDS: carvediloL 12.5 MG TABLET PO SCH (08:53)
[2020-01-09] MEDS: POLYETHYLENE GLYCOL POWDER 17 GM PACK PO SCH (08:53)
[2020-01-09] MEDS: PANTOPRAZOLE 40 MG TABLET PO SCH (08:53)
[2020-01-09] MEDS: CHLORHEXIDINE 0.12% ORAL RINSE 60 ML BOTTLE SWISH/SPIT SCH (08:54)
[2020-01-09] MEDS: MULTIVITAMIN (BEROCCA) TABLET PO SCH (08:59)
== END 2020-01-09 14:05 | disposition home health service (06) | DRG 216 ==
LOC: N.ED 14:12 → N.EDINP 15:26 → SUATTDRO 15:26 → N.ICU 16:53 → N.TELEN 12-22 16:07 → N.ICU 12-24 18:53 → N.CVR 12-26 09:10 → N.ICU 12-28 17:06 → N.TELES 01-02 13:46
PROVIDERS: ADMIT Internal Medicine
PROC: CLCCHCL (ICD-10-PCS; 2019-12-24 21:45)
PROC: CABGMVR (ICD-10-PCS; 2019-12-26 06:46)